=== PATIENT | male | born 1955 | race African-American/Black ===

== ENCOUNTER 2017-01-17 07:45 | Emergency (ER) | payer BC ==
[~2017-01-17] VITALS: Ht 180.3 cm; Wt 83.0 kg
[2017-01-17 07:47] VITALS: Ht 180.3 cm; Wt 83.0 kg
[2017-01-17] MEDS ORDERED: SENN-36 PO (08:12)
[2017-01-17] MEDS ORDERED: HYDR25SU23 PR (08:12)
[2017-01-17] MEDS ORDERED: DOCU-144 PO (08:12)
[2017-01-17] MEDS ORDERED: HYDR-902 PO (08:12)
[2017-01-17] MEDS ORDERED: ONDANSETRON (ODT) 4 MG TAB ODT STA (08:23)
[2017-01-17 08:30] VITALS: BP 139/89; PULSE 85; RESP 18; TEMP 98
[2017-01-17] MEDS ORDERED: HYDROCODONE/APAP (10/325) TAB PO ONE (08:30)
--- NOTE | 2017-01-17 11:10 | ERD ---
ER Documentation Chief Complaint Chief Complaint 6 days with hemrrhoid pain having having some bleeding HPI Patient is a 61-year-old male with no medical problems who presents with pain. He says that he has 6 days of "hemorrhoid pain". He said that he cannot sit or stand because he is having pain at his anus. He said that he has some bleeding when he goes to the bathroom and has been straining to have bowel movements. He has had previous resection of hemorrhoids years ago. He called his surgeon told him to go to the ER. He has tried preparation H as well as ointment and cream with lidocaine. Upon review of old medical records this is the patient's first visit to the emergency department. ROS All systems reviewed and are negative except as per history of present illness. Medications Home Meds Active Scripts Sennosides* (Senokot*) 8.6 Mg Tablet, 1 TAB PO BID, #30 TAB Prov:MADI BISHOP MD 01/17/17 Docusate Sodium* (Colace*) 100 Mg Capsule, 100 MG PO TID, #30 CAP Prov:MADI BISHOP MD 01/17/17 Hydrocortisone Acetate (Anusol-Hc) 25 Mg Supp.rect, 1 SUPP [place] BID Y for HEMORROID PAIN/ITCHING, #12 SUPP.RECT Prov:MADI BISHOP MD 01/17/17 Hydrocodone/Acetaminophen ([place] 10-325 Tablet) 1 Each Tablet, 1 TAB PO Q6H Y for PAIN, #12 TAB Prov:MADI BISHOP MD 01/17/17 Reported Medications [None] No Conflict Check 07/13/10 Allergies Allergies: Coded Allergies: No Known Drug Allergies (Verified Allergy, Unknown, 07/13/10) PMhx/Soc History of Surgery: No Anesthesia Reaction: No Hx Neurological Disorder: No Hx Respiratory Disorders: No Hx Cardiac Disorders: No Hx Psychiatric Problems: No Hx Miscellaneous Medical Probl: No Hx Alcohol Use: Yes (BEER A DAY) Hx Substance Use: No Hx Tobacco Use: No Smoking Status: Never smoker FmHx Family History: diabetes Physical Exam Vitals Vital Signs Date Time Temp Pulse Resp B/P Pulse Ox O2 Delivery O2 Flow Rate FiO2 01/17/17 08:30 98.0 85 18 139/89 99 01/17/17 07:47 97.7 98 18 157/105 98 Physical Exam Const: Moderate distress secondary to pain Head: Atraumatic Eyes: Normal Conjunctiva ENT: Normal External Ears, Nose and Mouth. Neck: Full range of motion..~ No meningismus. Resp: Clear to auscultation bilaterally Cardio: Regular rate and rhythm, no murmurs Abd: Soft, non tender, non distended. Normal bowel sounds Skin: No petechiae or rashes Back: No midline or flank tenderness Ext: No cyanosis, or edema Neur: Awake and alert Rectal: Small external hemorrhoids without thrombosis or signs of active bleeding Results 24 hrs Current Medications Medications (Trade) Dose Ordered Sig/Vamshi Route PRN Reason Start Time Stop Time Status Last Admin Dose Admin Acetaminophen/ Hydrocodone Bitart ([place] (10/325)) 1 tab ONCE ONCE PO 01/17/17 08:30 01/17/17 08:31 DC 01/17/17 08:26 Ondansetron HCl (Zofran Odt) 4 mg ONCE STAT ODT 01/17/17 08:23 01/17/17 08:24 DC 01/17/17 08:26 Procedures/MDM Patient is a 61-year-old male who presents with acute hemorrhoid pain. The patient has no active bleeding at this time and is otherwise well-appearing. Patient will be discharged with a prescription for [place], Anusol suppository, and Colace. I told the patient he should follow-up with his surgeon within 1-2 days to discuss hemorrhoidectomy. The patient can return for any worsening symptoms. I believe outpatient management is appropriate at this time. Departure Diagnosis: Primary Impression: Hemorrhoids Hemorrhoid type: unspecified Qualified Code: K64.9 - Hemorrhoids, unspecified hemorrhoid type Additional Impression: Rectal hemorrhage Condition: Fair Patient Instructions: Treating Hemorrhoids: Self-Care, Rectal Bleed, Stable Referrals: Your surgeon Additional Instructions: FOLLOW UP WITH YOUR PRIMARY CARE PHYSICIAN TOMORROW.Return to this facility if you are not improving as expected. MADI BISHOP MD Jan 17, 2017 11:10
== END 2017-01-17 08:35 | disposition home or self-care (01) ==
LOC: E/R 07:45
DX: K64.9 Unspecified hemorrhoids (principal)
CPT/HCPCS: 99283

== ENCOUNTER 2017-01-18 21:14 | Inpatient (IN) | payer BC ==
[~2017-01-18] VITALS: Ht 180.3 cm; Wt 83.3 kg
[~2017-01-18 21:14] MED LIST: DOCU-144 PO; HYDR-902 PO; HYDR25SU23 PR; SENN-36 PO
[2017-01-18] MEDS ORDERED: KETOROLAC 15 MG INJ IV STA (22:51)
[2017-01-18] MEDS ORDERED: SOD CHLORIDE 0.9% 1,000 ML IV STA (22:51)
[2017-01-18] MEDS ORDERED: MAGNESIUM CITRATE 300 ML BTL PO ONE (23:00)
--- NOTE | 2017-01-18 23:52 | ERD ---
ER Documentation Chief Complaint Chief Complaint chest pain x 4 days, sob [facility] Patient triage for chest pain for 4 days although upon my HPI patient states he is here due to continued rectal pain and constipation. He was seen and evaluated yesterday in this ED for rectal bleeding and hemorrhoidal pain, and was discharged with opioid analgesics, which he states he has been using without relief. He had a very small bowel movement today and states he feels extremely constipated and has continued worsening rectal pain with a few episodes of clear nonbloody nonbilious emesis. He has had no fevers or chills, denies chest pain or shortness of breath, no headache or blurry vision. ROS All systems reviewed and are negative except as per history of present illness. Medications Home Meds Active Scripts Sennosides* (Senokot*) 8.6 Mg Tablet, 1 TAB PO BID, #30 TAB Prov:MADI BISHOP MD 01/17/17 Docusate Sodium* (Colace*) 100 Mg Capsule, 100 MG PO TID, #30 CAP Prov:MADI BISHOP MD 01/17/17 Hydrocortisone Acetate (Anusol-Hc) 25 Mg Supp.rect, 1 SUPP [place] BID Y for HEMORROID PAIN/ITCHING, #12 SUPP.RECT Prov:MADI BISHOP MD 01/17/17 Hydrocodone/Acetaminophen ([place] 10-325 Tablet) 1 Each Tablet, 1 TAB PO Q6H Y for PAIN, #12 TAB Prov:MADI BISHOP MD 01/17/17 Reported Medications [None] No Conflict Check 07/13/10 Allergies Allergies: Coded Allergies: No Known Drug Allergies (Verified Allergy, Unknown, 07/13/10) PMhx/Soc Hypertension, recent right total hip arthroplasty History of Surgery: Yes (RT HIP REPLACEMENT, HEMORRHOIDECTOMY X2) Anesthesia Reaction: No Hx Neurological Disorder: No Hx Respiratory Disorders: No Hx Cardiac Disorders: No Hx Psychiatric Problems: No Hx Miscellaneous Medical Probl: Yes (HEMORRHOIDS) Hx Alcohol Use: Yes (BEER A DAY) Hx Substance Use: No Hx Tobacco Use: No Smoking Status: Former smoker FmHx Family History: No diabetes Physical Exam Vitals Vital Signs Date Time Temp Pulse Resp B/P Pulse Ox O2 Delivery O2 Flow Rate FiO2 01/18/17 23:54 98.2 71 18 116/82 98 Room Air 01/18/17 21:18 98.2 86 20 131/79 100 Physical Exam GENERAL: Well-developed, well-nourished, well-hydrated, moderate discomfort, afebrile HEENT: Moist mucous membranes, pink conjunctiva, no cervical spine tenderness or step-off deformities, no goiter, no jaundice or icterus, extraocular movements intact without pain. No submandibular induration, and no pharyngeal erythema NEURO: Alert and oriented 3, cranial nerves II through XII intact bilaterally, pupils equal round reactive to light, no focal deficits or facial asymmetry, sensation intact distally Strength 5/5 in upper and lower extremities bilaterally CARDIAC: Regular rate and rhythm, no murmurs rubs or gallops LUNGS: Clear bilaterally no wheezing crackles or stridor ABDOMEN: Soft nontender, no guarding, no rigidity, no rebound, no psoas sign no obturator sign. Normoactive bowel sounds SKIN: Warm and dry to touch, no abrasions, contusions, or hematomas, no lacerations, no ecchymosis, no target lesions, and without ulcers EXTREMITIES: No clubbing cyanosis or edema, calves are bilaterally symmetrical, no Homans sign, no popliteal cord sign. Distal pulses equal and bilateral PSYCH: Normal affect without agitation or irritability Result Diagram: 01/18/17229901/18/172299 Results 24 hrs Laboratory Tests Test 01/18/17 23:00 White Blood Count 18.010^3/ul Red Blood Count 5.4510^6/ul Hemoglobin 13.9g/dl Hematocrit 43.1% Mean Corpuscular Volume 79.1fl Mean Corpuscular Hemoglobin 25.5pg Mean Corpuscular Hemoglobin Concent 32.3g/dl Red Cell Distribution Width 15.2% Platelet Count 46521^3/UL Mean Platelet Volume 12.1fl Neutrophils % 83.2% Lymphocytes % 8.1% Monocytes % 8.0% Eosinophils % 0.1% Basophils % 0.2% Nucleated Red Blood Cells % 0.0/100WBC Neutrophils # 15.010^3/ul Lymphocytes # 1.510^3/ul Monocytes # 1.410^3/ul Eosinophils # 0.010^3/ul Basophils # 0.010^3/ul Nucleated Red Blood Cells # 0.010^3/ul Prothrombin Time 13.7Sec Prothrombin Time Ratio 1.1 INR International Normalized Ratio 1.05 Sodium Level 136mmol/L Potassium Level 4.2mmol/L Chloride Level 96mmol/L Carbon Dioxide Level 29mmol/L Anion Gap 15 Blood Urea Nitrogen 21mg/dl Creatinine 1.23mg/dl Glucose Level 123mg/dl Calcium Level 10.2mg/dl Total Bilirubin 1.0mg/dl Direct Bilirubin 0.00mg/dl Indirect Bilirubin 1.0mg/dl Aspartate Amino Transf (AST/SGOT) 23IU/L Alanine Aminotransferase (ALT/SGPT) 30IU/L Alkaline Phosphatase 65IU/L Troponin I 0.026ng/ml Total Protein 8.8g/dl Albumin 4.4g/dl Globulin 4.40g/dl Albumin/Globulin Ratio 1.00 Lipase 16U/L Current Medications Medications (Trade) Dose Ordered Sig/Vamshi Route PRN Reason Start Time Stop Time Status Last Admin Dose Admin Sodium Chloride (NS) 1,000 ml @ 1,000 mls/hr Q1H STAT IV 01/18/17 22:51 01/18/17 23:50 DC 01/18/17 23:14 Ketorolac Tromethamine (Toradol) 15 mg ONCE STAT IV 01/18/17 22:51 01/18/17 22:53 DC 01/18/17 23:14 Magnesium Citrate (Citroma) 300 ml ONCE ONCE PO 01/18/17 23:00 01/18/17 23:01 DC 01/18/17 23:14 Morphine Sulfate (morphine) 4 mg ONCE STAT IV 01/19/17 00:03 01/19/17 00:04 DC 01/19/17 00:12 Ondansetron HCl 4 mg 4 mg STK-MED ONCE .ROUTE 01/19/17 00:26 01/19/17 00:27 DC Piperacillin Sod/ Tazobactam Sod (Zosyn 3.375gm/ 100 ml (Pmx)) 100 ml @ 200 mls/hr ONCE ONCE IVPB 01/19/17 01:00 01/19/17 01:29 DC Ondansetron HCl (Zofran Inj) 4 mg ONCE ONCE IV 01/19/17 01:15 01/19/17 01:16 DC Ondansetron HCl (Zofran Inj) 4 mg ONCE STAT IV 01/19/17 01:14 01/19/17 01:15 DC 01/19/17 01:18 Procedures/MDM IV line was established patient was placed on monitor tech rhythm strip revealed a sinus rhythm at about 80 bpm with upright P and T waves. Patient was afebrile EKG performed, read by me: 85 bpm, normal sinus rhythm, normal axis, no acute ST segment changes, narrow QRS complex, with good R-wave progression in precordial leads. I administered 1 L normal saline intravenously, Toradol 15 mg IV, Zofran 4 mg IV. Continued pain and nausea administer morphine 4 mg IV and another dose of Zofran [address] scan of the abdomen and pelvis was performed revealing thickened rectum, no bowel obstruction, no other acute inflammatory infectious pathology noted. Please refer to radiologist dictation for full report. CBC revealed a leukocytosis at 18, electrolytes revealed dehydration with a BUN/ creatinine of 21/1.2, liver function tests normal, troponin negative. I spoke to surgeon traffic sign erection supervisor Dr. Ignacio regarding the patient's presentation, symptoms, CT scan findings, he kindly agreed to consult the patient. Departure Diagnosis: Primary Impression: Proctitis Additional Impressions: Rectal bleeding Intractable pain Hemorrhoid Hemorrhoid type: unspecified Qualified Code: K64.9 - Hemorrhoids, unspecified hemorrhoid type Constipation Constipation type: slow transit constipation Qualified Code: K59.01 - Slow transit constipation Dehydration Condition: EVETTE Mccormick MD Jan 18, 2017 23:52
--- NOTE | 2017-01-18 23:52 | ERD ---
ER Documentation Chief Complaint Chief Complaint chest pain x 4 days, sob [facility] Patient triage for chest pain for 4 days although upon my HPI patient states he is here due to continued rectal pain and constipation. He was seen and evaluated yesterday in this ED for rectal bleeding and hemorrhoidal pain, and was discharged with opioid analgesics, which he states he has been using without relief. He had a very small bowel movement today and states he feels extremely constipated and has continued worsening rectal pain with a few episodes of clear nonbloody nonbilious emesis. He has had no fevers or chills, denies chest pain or shortness of breath, no headache or blurry vision. ROS All systems reviewed and are negative except as per history of present illness. Medications Home Meds Active Scripts Sennosides* (Senokot*) 8.6 Mg Tablet, 1 TAB PO BID, #30 TAB Prov:MADI BISHOP MD 01/17/17 Docusate Sodium* (Colace*) 100 Mg Capsule, 100 MG PO TID, #30 CAP Prov:MADI BISHOP MD 01/17/17 Hydrocortisone Acetate (Anusol-Hc) 25 Mg Supp.rect, 1 SUPP [place] BID Y for HEMORROID PAIN/ITCHING, #12 SUPP.RECT Prov:MADI BISHOP MD 01/17/17 Hydrocodone/Acetaminophen ([place] 10-325 Tablet) 1 Each Tablet, 1 TAB PO Q6H Y for PAIN, #12 TAB Prov:MADI BISHOP MD 01/17/17 Reported Medications [None] No Conflict Check 07/13/10 Allergies Allergies: Coded Allergies: No Known Drug Allergies (Verified Allergy, Unknown, 07/13/10) PMhx/Soc Hypertension, recent right total hip arthroplasty History of Surgery: Yes (RT HIP REPLACEMENT, HEMORRHOIDECTOMY X2) Anesthesia Reaction: No Hx Neurological Disorder: No Hx Respiratory Disorders: No Hx Cardiac Disorders: No Hx Psychiatric Problems: No Hx Miscellaneous Medical Probl: Yes (HEMORRHOIDS) Hx Alcohol Use: Yes (BEER A DAY) Hx Substance Use: No Hx Tobacco Use: No Smoking Status: Former smoker FmHx Family History: No diabetes Physical Exam Vitals Vital Signs Date Time Temp Pulse Resp B/P Pulse Ox O2 Delivery O2 Flow Rate FiO2 01/18/17 23:54 98.2 71 18 116/82 98 Room Air 01/18/17 21:18 98.2 86 20 131/79 100 Physical Exam GENERAL: Well-developed, well-nourished, well-hydrated, moderate discomfort, afebrile HEENT: Moist mucous membranes, pink conjunctiva, no cervical spine tenderness or step-off deformities, no goiter, no jaundice or icterus, extraocular movements intact without pain. No submandibular induration, and no pharyngeal erythema NEURO: Alert and oriented 3, cranial nerves II through XII intact bilaterally, pupils equal round reactive to light, no focal deficits or facial asymmetry, sensation intact distally Strength 5/5 in upper and lower extremities bilaterally CARDIAC: Regular rate and rhythm, no murmurs rubs or gallops LUNGS: Clear bilaterally no wheezing crackles or stridor ABDOMEN: Soft nontender, no guarding, no rigidity, no rebound, no psoas sign no obturator sign. Normoactive bowel sounds SKIN: Warm and dry to touch, no abrasions, contusions, or hematomas, no lacerations, no ecchymosis, no target lesions, and without ulcers EXTREMITIES: No clubbing cyanosis or edema, calves are bilaterally symmetrical, no Homans sign, no popliteal cord sign. Distal pulses equal and bilateral PSYCH: Normal affect without agitation or irritability Result Diagram: 01/18/17229901/18/172299 Results 24 hrs Laboratory Tests Test 01/18/17 23:00 White Blood Count 18.010^3/ul Red Blood Count 5.4510^6/ul Hemoglobin 13.9g/dl Hematocrit 43.1% Mean Corpuscular Volume 79.1fl Mean Corpuscular Hemoglobin 25.5pg Mean Corpuscular Hemoglobin Concent 32.3g/dl Red Cell Distribution Width 15.2% Platelet Count 73403^3/UL Mean Platelet Volume 12.1fl Neutrophils % 83.2% Lymphocytes % 8.1% Monocytes % 8.0% Eosinophils % 0.1% Basophils % 0.2% Nucleated Red Blood Cells % 0.0/100WBC Neutrophils # 15.010^3/ul Lymphocytes # 1.510^3/ul Monocytes # 1.410^3/ul Eosinophils # 0.010^3/ul Basophils # 0.010^3/ul Nucleated Red Blood Cells # 0.010^3/ul Prothrombin Time 13.7Sec Prothrombin Time Ratio 1.1 INR International Normalized Ratio 1.05 Sodium Level 136mmol/L Potassium Level 4.2mmol/L Chloride Level 96mmol/L Carbon Dioxide Level 29mmol/L Anion Gap 15 Blood Urea Nitrogen 21mg/dl Creatinine 1.23mg/dl Glucose Level 123mg/dl Calcium Level 10.2mg/dl Total Bilirubin 1.0mg/dl Direct Bilirubin 0.00mg/dl Indirect Bilirubin 1.0mg/dl Aspartate Amino Transf (AST/SGOT) 23IU/L Alanine Aminotransferase (ALT/SGPT) 30IU/L Alkaline Phosphatase 65IU/L Troponin I 0.026ng/ml Total Protein 8.8g/dl Albumin 4.4g/dl Globulin 4.40g/dl Albumin/Globulin Ratio 1.00 Lipase 16U/L Current Medications Medications (Trade) Dose Ordered Sig/Vamshi Route PRN Reason Start Time Stop Time Status Last Admin Dose Admin Sodium Chloride (NS) 1,000 ml @ 1,000 mls/hr Q1H STAT IV 01/18/17 22:51 01/18/17 23:50 DC 01/18/17 23:14 Ketorolac Tromethamine (Toradol) 15 mg ONCE STAT IV 01/18/17 22:51 01/18/17 22:53 DC 01/18/17 23:14 Magnesium Citrate (Citroma) 300 ml ONCE ONCE PO 01/18/17 23:00 01/18/17 23:01 DC 01/18/17 23:14 Morphine Sulfate (morphine) 4 mg ONCE STAT IV 01/19/17 00:03 01/19/17 00:04 DC 01/19/17 00:12 Ondansetron HCl 4 mg 4 mg STK-MED ONCE .ROUTE 01/19/17 00:26 01/19/17 00:27 DC Piperacillin Sod/ Tazobactam Sod (Zosyn 3.375gm/ 100 ml (Pmx)) 100 ml @ 200 mls/hr ONCE ONCE IVPB 01/19/17 01:00 01/19/17 01:29 DC Ondansetron HCl (Zofran Inj) 4 mg ONCE ONCE IV 01/19/17 01:15 01/19/17 01:16 DC Ondansetron HCl (Zofran Inj) 4 mg ONCE STAT IV 01/19/17 01:14 01/19/17 01:15 DC 01/19/17 01:18 Procedures/MDM IV line was established patient was placed on cardiac surgeon rhythm strip revealed a sinus rhythm at about 80 bpm with upright P and T waves. Patient was afebrile EKG performed, read by me: 85 bpm, normal sinus rhythm, normal axis, no acute ST segment changes, narrow QRS complex, with good R-wave progression in precordial leads. I administered 1 L normal saline intravenously, Toradol 15 mg IV, Zofran 4 mg IV. Continued pain and nausea administer morphine 4 mg IV and another dose of Zofran [address] scan of the abdomen and pelvis was performed revealing thickened rectum, no bowel obstruction, no other acute inflammatory infectious pathology noted. Please refer to radiologist dictation for full report. CBC revealed a leukocytosis at 18, electrolytes revealed dehydration with a BUN/ creatinine of 21/1.2, liver function tests normal, troponin negative. I spoke to surgeon education reviewer Dr. Ignacio regarding the patient's presentation, symptoms, CT scan findings, he kindly agreed to consult the patient. Departure Diagnosis: Primary Impression: Proctitis Additional Impressions: Rectal bleeding Intractable pain Hemorrhoid Hemorrhoid type: unspecified Qualified Code: K64.9 - Hemorrhoids, unspecified hemorrhoid type Constipation Constipation type: slow transit constipation Qualified Code: K59.01 - Slow transit constipation Dehydration Condition: EVETTE Mccormick MD Jan 18, 2017 23:52
--- NOTE | 2017-01-18 23:52 | ERD ---
ER Documentation Chief Complaint Chief Complaint chest pain x 4 days, sob [facility] Patient triage for chest pain for 4 days although upon my HPI patient states he is here due to continued rectal pain and constipation. He was seen and evaluated yesterday in this ED for rectal bleeding and hemorrhoidal pain, and was discharged with opioid analgesics, which he states he has been using without relief. He had a very small bowel movement today and states he feels extremely constipated and has continued worsening rectal pain with a few episodes of clear nonbloody nonbilious emesis. He has had no fevers or chills, denies chest pain or shortness of breath, no headache or blurry vision. ROS All systems reviewed and are negative except as per history of present illness. Medications Home Meds Active Scripts Sennosides* (Senokot*) 8.6 Mg Tablet, 1 TAB PO BID, #30 TAB Prov:MADI BISHOP MD 01/17/17 Docusate Sodium* (Colace*) 100 Mg Capsule, 100 MG PO TID, #30 CAP Prov:MADI BISHOP MD 01/17/17 Hydrocortisone Acetate (Anusol-Hc) 25 Mg Supp.rect, 1 SUPP NE BID Y for HEMORROID PAIN/ITCHING, #12 SUPP.RECT Prov:MADI BISHOP MD 01/17/17 Hydrocodone/Acetaminophen ([place] 10-325 Tablet) 1 Each Tablet, 1 TAB PO Q6H Y for PAIN, #12 TAB Prov:MADI BISHOP MD 01/17/17 Reported Medications [None] No Conflict Check 07/13/10 Allergies Allergies: Coded Allergies: No Known Drug Allergies (Verified Allergy, Unknown, 07/13/10) PMhx/Soc Hypertension, recent right total hip arthroplasty History of Surgery: Yes (RT HIP REPLACEMENT, HEMORRHOIDECTOMY X2) Anesthesia Reaction: No Hx Neurological Disorder: No Hx Respiratory Disorders: No Hx Cardiac Disorders: No Hx Psychiatric Problems: No Hx Miscellaneous Medical Probl: Yes (HEMORRHOIDS) Hx Alcohol Use: Yes (BEER A DAY) Hx Substance Use: No Hx Tobacco Use: No Smoking Status: Former smoker FmHx Family History: No diabetes Physical Exam Vitals Vital Signs Date Time Temp Pulse Resp B/P Pulse Ox O2 Delivery O2 Flow Rate FiO2 01/18/17 23:54 98.2 71 18 116/82 98 Room Air 01/18/17 21:18 98.2 86 20 131/79 100 Physical Exam GENERAL: Well-developed, well-nourished, well-hydrated, moderate discomfort, afebrile HEENT: Moist mucous membranes, pink conjunctiva, no cervical spine tenderness or step-off deformities, no goiter, no jaundice or icterus, extraocular movements intact without pain. No submandibular induration, and no pharyngeal erythema NEURO: Alert and oriented 3, cranial nerves II through XII intact bilaterally, pupils equal round reactive to light, no focal deficits or facial asymmetry, sensation intact distally Strength 5/5 in upper and lower extremities bilaterally CARDIAC: Regular rate and rhythm, no murmurs rubs or gallops LUNGS: Clear bilaterally no wheezing crackles or stridor ABDOMEN: Soft nontender, no guarding, no rigidity, no rebound, no psoas sign no obturator sign. Normoactive bowel sounds SKIN: Warm and dry to touch, no abrasions, contusions, or hematomas, no lacerations, no ecchymosis, no target lesions, and without ulcers EXTREMITIES: No clubbing cyanosis or edema, calves are bilaterally symmetrical, no Homans sign, no popliteal cord sign. Distal pulses equal and bilateral PSYCH: Normal affect without agitation or irritability Result Diagram: 01/18/17229901/18/172299 Results 24 hrs Laboratory Tests Test 01/18/17 23:00 White Blood Count 18.010^3/ul Red Blood Count 5.4510^6/ul Hemoglobin 13.9g/dl Hematocrit 43.1% Mean Corpuscular Volume 79.1fl Mean Corpuscular Hemoglobin 25.5pg Mean Corpuscular Hemoglobin Concent 32.3g/dl Red Cell Distribution Width 15.2% Platelet Count 42006^3/UL Mean Platelet Volume 12.1fl Neutrophils % 83.2% Lymphocytes % 8.1% Monocytes % 8.0% Eosinophils % 0.1% Basophils % 0.2% Nucleated Red Blood Cells % 0.0/100WBC Neutrophils # 15.010^3/ul Lymphocytes # 1.510^3/ul Monocytes # 1.410^3/ul Eosinophils # 0.010^3/ul Basophils # 0.010^3/ul Nucleated Red Blood Cells # 0.010^3/ul Prothrombin Time 13.7Sec Prothrombin Time Ratio 1.1 INR International Normalized Ratio 1.05 Sodium Level 136mmol/L Potassium Level 4.2mmol/L Chloride Level 96mmol/L Carbon Dioxide Level 29mmol/L Anion Gap 15 Blood Urea Nitrogen 21mg/dl Creatinine 1.23mg/dl Glucose Level 123mg/dl Calcium Level 10.2mg/dl Total Bilirubin 1.0mg/dl Direct Bilirubin 0.00mg/dl Indirect Bilirubin 1.0mg/dl Aspartate Amino Transf (AST/SGOT) 23IU/L Alanine Aminotransferase (ALT/SGPT) 30IU/L Alkaline Phosphatase 65IU/L Troponin I 0.026ng/ml Total Protein 8.8g/dl Albumin 4.4g/dl Globulin 4.40g/dl Albumin/Globulin Ratio 1.00 Lipase 16U/L Current Medications Medications (Trade) Dose Ordered Sig/Vamshi Route PRN Reason Start Time Stop Time Status Last Admin Dose Admin Sodium Chloride (NS) 1,000 ml @ 1,000 mls/hr Q1H STAT IV 01/18/17 22:51 01/18/17 23:50 DC 01/18/17 23:14 Ketorolac Tromethamine (Toradol) 15 mg ONCE STAT IV 01/18/17 22:51 01/18/17 22:53 DC 01/18/17 23:14 Magnesium Citrate (Citroma) 300 ml ONCE ONCE PO 01/18/17 23:00 01/18/17 23:01 DC 01/18/17 23:14 Morphine Sulfate (morphine) 4 mg ONCE STAT IV 01/19/17 00:03 01/19/17 00:04 DC 01/19/17 00:12 Ondansetron HCl 4 mg 4 mg STK-MED ONCE .ROUTE 01/19/17 00:26 01/19/17 00:27 DC Piperacillin Sod/ Tazobactam Sod (Zosyn 3.375gm/ 100 ml (Pmx)) 100 ml @ 200 mls/hr ONCE ONCE IVPB 01/19/17 01:00 01/19/17 01:29 DC Ondansetron HCl (Zofran Inj) 4 mg ONCE ONCE IV 01/19/17 01:15 01/19/17 01:16 DC Ondansetron HCl (Zofran Inj) 4 mg ONCE STAT IV 01/19/17 01:14 01/19/17 01:15 DC 01/19/17 01:18 Procedures/MDM IV line was established patient was placed on desk monitor rhythm strip revealed a sinus rhythm at about 80 bpm with upright P and T waves. Patient was afebrile EKG performed, read by me: 85 bpm, normal sinus rhythm, normal axis, no acute ST segment changes, narrow QRS complex, with good R-wave progression in precordial leads. I administered 1 L normal saline intravenously, Toradol 15 mg IV, Zofran 4 mg IV. Continued pain and nausea administer morphine 4 mg IV and another dose of Zofran [address] scan of the abdomen and pelvis was performed revealing thickened rectum, no bowel obstruction, no other acute inflammatory infectious pathology noted. Please refer to radiologist dictation for full report. CBC revealed a leukocytosis at 18, electrolytes revealed dehydration with a BUN/ creatinine of 21/1.2, liver function tests normal, troponin negative. I spoke to surgeon customer service correspondence clerk Dr. Ignacio regarding the patient's presentation, symptoms, CT scan findings, he kindly agreed to consult the patient. Departure Diagnosis: Primary Impression: Proctitis Additional Impressions: Rectal bleeding Intractable pain Hemorrhoid Hemorrhoid type: unspecified Qualified Code: K64.9 - Hemorrhoids, unspecified hemorrhoid type Constipation Constipation type: slow transit constipation Qualified Code: K59.01 - Slow transit constipation Dehydration Condition: EVETTE Mccormick MD Jan 18, 2017 23:52
[2017-01-18 23:54] VITALS: TEMP 98.2
[2017-01-19] MEDS ORDERED: morphine 4 MG/ML VIAL IV STA (00:03)
[2017-01-19] MEDS ORDERED: ONDANSETRON 4 MG INJ ONE (00:26)
--- NOTE | 2017-01-19 00:31 | RADRPT ---
PROCEDURE: CT Abdomen and Pelvis without contrast. CLINICAL INDICATION: Abdominal pain, rectal bleed TECHNIQUE: CT scan of the abdomen and pelvis without contrast was performed on a multidetector hig h-resolution CT scanner. The patient was scanned without intravenous contrast. Coronal and sagittal reformatted images were obtained from the axial source images. Images were reviewed on a high-resol [employer] PACS workstation. The total exam CTDI equals 11.86 mGy and the total exam DLP equals 733.04 mG y-cm. One or more the following dose reduction techniques were utilized: Automated exposure control, adjus tment of the mA and / or kV according to patient's size, or use of iterative reconstruction techniqu e. COMPARISON: None. FINDINGS: Linear atelectasis/fibrosis at lung bases. No pneumoperitoneum is seen. Small oval fluid density str uctures in the liver likely cysts the largest 6 mm in the right lobe anterior segment. No imaging fo llow-up of these is recommended. No abnormality seen in the gallbladder, pancreas. No biliary dilata tion is seen. No abnormality seen in the spleen, adrenals. There is appearance of a small hiatal her yves. No abdominal aortic aneurysm is seen. Calcification in abdominal aorta and iliac arteries. Very small umbilical hernia containing fat only. No abnormality seen in the kidneys. Vas deferens calcif ication apparent. Phleboliths in the pelvis. Beam-hardening artifact arising from right hip arthropl asty projected over lower pelvis limiting evaluation. No definite abnormality of the prostate seen. There is appearance of mild diffuse bladder wall thickening which may at least partially be due to u nderdistension. There is appearance of nonspecific possible lower rectal wall thickening/mass. There is no evidence of acute appendicitis. There is the appearance of an unremarkable appendix part ially delineated. No dilated small bowel loops are seen. No enlarged lymph nodes are seen in the abd omen or pelvis. Mild to moderate osteoarthrosis at left hip. Small scattered likely bone islands. De generative changes at sacroiliac joints. Degenerative changes in thoracolumbar spine. IMPRESSION: Suggestion of possible lower rectal wall thickening / mass in this patient with history of rectal bl eeding. Small hiatal hernia. Please see above. RPTAT: HJES .Stephen Su MD, MD Date Time Electronically viewed and signed by .Stephen Su MD, MD on 01/19/2017 00:31 .S/
[2017-01-19] MEDS ORDERED: PIPER-TAZO 3.375 GM IV (PMX) 100 ML IVPB ONE (01:00)
[2017-01-19] MEDS ORDERED: ONDANSETRON 4 MG INJ IV STA (01:14)
[2017-01-19] MEDS ORDERED: ONDANSETRON 4 MG INJ IV ONE (01:15)
[2017-01-19] MEDS ORDERED: ANR PR (01:50)
[2017-01-19] MEDS ORDERED: HYDR-902 PO (01:50)
[2017-01-19] MEDS ORDERED: DOCU-159 PO (01:50)
[2017-01-19] MEDS ORDERED: ALBUTEROL/IPRATROPIUM (NEB) 3 ML AMP HHN PRN (03:00)
[2017-01-19] MEDS ORDERED: HYDROCORTISONE 25 MG SUPP PR PRN (03:00)
[2017-01-19] MEDS ORDERED: NACL 0.9% 3 ML SYG IV SCH (03:00)
[2017-01-19] MEDS ORDERED: ACETAMINOPHEN 325 MG TAB PO PRN (03:00)
[2017-01-19 03:29] VITALS: Ht 180.3 cm; Wt 83.3 kg
[2017-01-19 03:38] VITALS: BP 128/79; PULSE 69; RESP 18
[2017-01-19] MEDS: morphine 4 MG/ML VIAL IV PRN ×2 (04:33→09:14)
[2017-01-19] MEDS ORDERED: PIPER-TAZO 3.375 GM IV (PMX) 100 ML IVPB SCH ×2 (06:00→12:00)
[2017-01-19] MEDS ORDERED: DIPHENHYDRAMINE 50 MG INJ IV ONE (06:00)
[2017-01-19] MEDS ORDERED: METHYLPREDNISOLONE 125 MG INJ IV ONE (06:00)
--- NOTE | 2017-01-19 06:34 | HP ---
Date/Time of Note Date/Time of Note DATE: 01/19/17 TIME: 06:29 Assessment/Plan VTE Prophylaxis VTE Prophylaxis Intervention: SCD's Lines/Catheters IV Catheter Type (from Nrsg): Saline Lock Assessment/Plan Assessment/Plan 1. Chronic constipation, rectal pain and bleeding -Patient with history of hemorrhoid, which can explain the bleeding. CT abdomen /pelvis however showed Suggestion of possible lower rectal wall thickening/mass. -Will place a GI consult -Continue on his Anusol and pain management -IV antibiotic for possible proctitis -Follow-up culture results including stool culture HPI/ROS Admit Date/Time Admit Date/Time Jan 19, 2017 at 00:40 Hx of Present Illness This is a 61-year-old male with a history of chronic constipation and hemorrhoidal bleed who presented to the ER complaining of rectal pain and constipation. He was seen in ER yesterday for rectal bleed and constipation and was discharged with opioid analgesics without relief of pain. As such patient returned for further evaluation. In the ER, vitals were stable. Labs shows a WBC of 18,000. CT abdomen pelvis showed Suggestion of possible lower rectal wall thickening / mass in this patient with history of rectal bleeding. Small hiatal hernia. PMH/Family/Social Social History Smoking Status: Never smoker Exam/Review of Systems Vital Signs Vitals Vital Signs Date Time Temp Pulse Resp B/P Pulse Ox O2 Delivery O2 Flow Rate FiO2 01/19/17 03:38 98.6 69 18 128/79 100 Room Air Exam Constitutional: alert, oriented, well developed Head: atraumatic, normocephalic Eyes: EOMI, PERRL Respiratory: clear to auscultation, normal air movement Cardiovascular: nl pulses, regular rate and rhythm Gastrointestinal: soft, tender Extremities: normal pulses Labs Result Diagram: 01/19/17 0434 01/19/17 0434 Medications Medications Current Medications Ondansetron HCl (Zofran Inj) 4 mg Q6H PRN IV NAUSEA AND/OR VOMITING; Start at 03:00 Acetaminophen (Tylenol Tab) 650 mg Q6H PRN PO PAIN LEVEL 1-3 OR FEVER; Start 01/19/17 at 03:00 Morphine Sulfate (morphine) 4 mg Q4H PRN IV SEVERE PAIN LEVEL 7-10 Last administered on 01/19/17t 04:33; Admin Dose 4 MG; Start 01/19/17 at 03:00 Docusate Sodium (Colace) 100 mg TID PO ; Start 01/19/17 at 09:00 Acetaminophen/ Hydrocodone Bitart ([place] (10325)) 1 tab Q6H PRN PO PAIN; Start 01/19/17 at 03:00 Hydrocortisone (Anusol-Hc Supp) 25 mg BID PRN RI HEMORROID PAIN/ITCHING; Start 01/19/17 at 03:00 Simethicone (Mylicon) 160 mg Q6H PRN PO DISTENSION/GAS/BLOATING Last administered on 01/19/17t 05:39; Admin Dose 160 MG; Start 01/19/17 at 04:00 TABITHA BEAN MD Jan 19, 2017 06:34
[2017-01-19 08:15] VITALS: BP 123/57; RESP 18
[2017-01-19] MEDS: ONDANSETRON 4 MG INJ IV PRN ×2 (09:14→18:26)
[2017-01-19] MEDS: DOCUSATE SODIUM 100 MG CAP PO SCH ×3 (09:14→20:35)
--- NOTE | 2017-01-19 11:44 | PN ---
Date/Time of Note Date/Time of Note DATE: 01/19/17 TIME: 11:42 Assessment/Plan VTE Prophylaxis VTE Prophylaxis Intervention: SCD's Lines/Catheters IV Catheter Type (from Nrs): Saline Lock Assessment/Plan Chief Complaint/Hosp Course Assessment/Plan: 61-year-old male with: 1. Chronic constipation, rectal pain and bleeding-patient with history of hemorrhoid, which can explain the bleeding. CT abdomen/pelvis however showed Suggestion of possible lower rectal wall thickening/mass. Pain control, follow-up GI consult -Continue on his Anusol and pain management -IV antibiotic for possible proctitis, -Follow-up culture results including stool culture Problems: Subjective 24 Hr Interval Summary Free Text/Dictation Patient still having rectal pain. Awaiting to be seen by GI team. Exam/Review of Systems Vital Signs Vitals Vital Signs Date Time Temp Pulse Resp B/P Pulse Ox O2 Delivery O2 Flow Rate FiO2 01/19/17 08:15 98.0 64 18 123/57 97 01/19/17 03:38 Room Air Intake and Output 01/18/17 01/18/17 01/19/17 15:00 23:00 07:00 Intake Total 900 ml Output Total 750 ml Balance 150 ml Exam Constitutional: alert, oriented, well developed Head: atraumatic, normocephalic Eyes: EOMI, PERRL Respiratory: clear to auscultation, normal air movement Cardiovascular: nl pulses, regular rate and rhythm Gastrointestinal: soft, tender Extremities: normal pulses Results Result Diagram: 01/19/17 0434 01/19/17 0434 Results 24 hrs Laboratory Tests Test 01/18/17 23:00 01/19/17 04:34 White Blood Count 18.0 H 15.3 H Red Blood Count 5.45 5.06 Hemoglobin 13.9 L 12.7 L Hematocrit 43.1 39.6 L Mean Corpuscular Volume 79.1 L 78.3 L Mean Corpuscular Hemoglobin 25.5 L 25.1 L Mean Corpuscular Hemoglobin Concent 32.3 32.1 Red Cell Distribution Width 15.2 H 15.4 H Platelet Count 266 248 Mean Platelet Volume 12.1 H 12.2 H Neutrophils % 83.2 H 75.0 Lymphocytes % 8.1 L 16.2 Monocytes % 8.0 7.8 Eosinophils % 0.1 0.3 Basophils % 0.2 0.3 Nucleated Red Blood Cells % 0.0 0.0 Neutrophils # 15.0 H 11.5 H Lymphocytes # 1.5 2.5 Monocytes # 1.4 H 1.2 H Eosinophils # 0.0 0.1 Basophils # 0.0 0.0 Nucleated Red Blood Cells # 0.0 0.0 Prothrombin Time 13.7 Prothrombin Time Ratio 1.1 INR International Normalized Ratio 1.05 Sodium Level 136 139 Potassium Level 4.2 3.9 Chloride Level 96 L 100 Carbon Dioxide Level 29 31 Anion Gap 15 12 Blood Urea Nitrogen 21 H 20 Creatinine 1.23 1.18 Glucose Level 123 139 Calcium Level 10.2 9.3 Total Bilirubin 1.0 1.2 Direct Bilirubin 0.00 0.00 Indirect Bilirubin 1.0 1.2 H Aspartate Amino Transf (AST/SGOT) 23 19 Alanine Aminotransferase (ALT/SGPT) 30 29 Alkaline Phosphatase 65 54 Troponin I 0.026 Total Protein 8.8 H 7.4 # Albumin 4.4 3.7 Globulin 4.40 H 3.70 H Albumin/Globulin Ratio 1.00 1.00 Lipase 16 L Phosphorus Level 3.9 Magnesium Level 2.2 Medications Medications Current Medications Ondansetron HCl (Zofran Inj) 4 mg Q6H PRN IV NAUSEA AND/OR VOMITING Last administered on 01/19/17 09:14; Admin Dose 4 MG; Start 01/19/17 at 03:00 Acetaminophen (Tylenol Tab) 650 mg Q6H PRN PO PAIN LEVEL 1-3 OR FEVER; Start 01/19/17 at 03:00 Docusate Sodium (Colace) 100 mg TID PO Last administered on 01/19/17 09:14; Admin Dose 100 MG; Start 01/19/17 at 09:00 Acetaminophen/ Hydrocodone Bitart ([place] (10/325)) 1 tab Q6H PRN PO PAIN; Start 01/19/17 at 03:00 Hydrocortisone (Anusol-Hc Supp) 25 mg BID PRN [place] HEMORROID PAIN/ITCHING; Start 01/19/17 at 03:00 Simethicone (Mylicon) 160 mg Q6H PRN PO DISTENSION/GAS/BLOATING Last administered on 01/19/17 05:39; Admin Dose 160 MG; Start 01/19/17 at 04:00 Morphine Sulfate 2 mg 2 mg Q4H PRN IV SEVERE PAIN LEVEL 7-10; Start 01/19/17 at 15:00 Aztreonam/Sodium Chloride (Azactam/NS) 100 ml @ 100 mls/hr Q12 IVPB ; Start at 12:00; Status SHELDON HERNANDEZ Jan 19, 2017 11:44
[2017-01-19] MEDS: AZTREONAM 2 GM in SOD CHLORIDE 0.9% 100 ML IVPB SCH ×2 (14:07→20:35)
[2017-01-19 14:31] VITALS: BP 137/87; RESP 18
--- NOTE | 2017-01-19 15:22 | CONS ---
Date/Time of Note Date/Time of Note DATE: 01/19/17 TIME: 15:10 Assessment/Plan Assessment/Plan Chief Complaint/Hosp Course ID BRIEF INITIAL NOTE=> Full consult note to follow by Dr. Lopez. I presented to bedside to introduce myself and Dr. Lopez ID medical consultant team and to inquire on his status. 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 Also stationed in past at [facility], [facility], and [employer]. He has a past medical hx of hemorrhoids in addition to chronic constipation w/ straining at the stool, plus anal fissures. He is s/p L-THR SEPTEMBER 2016, no complaints. He reports subjective fevers w/diaphoresis x several days, with increased rectal pain. He is , spouse at bedside. ALLERGIES: Iodine injected contrast = acute anaphylaxis PCN => Hx of PCN allergy, he forgot about this. This am he had acute angioedema reaction to Zosyn. INITIAL ASSESSMENT 1. SIRS w/subjective fevers, leukocytosis 2. Acute Proctitis per CT * CT abdomen pelvis showed Suggestion of possible lower rectal wall thickening / mass 3. Hx of hemorrhoids + chronic constipation w/straining at stool causing anal fissures and local bleeding . * Hx of hemorrhoidectomy remote 4. Small hiatal hernia 5. s/p L-THR September 2016 PLAN 1. PCN + Iodine contrast to allergy profile 2. Azactam started by primary for GNR coverage 3. Will add Cipro + Flagyl IV 4. GI consult pending -> patient anticipating colononoscopy. * Thank you for referring this very pleasant [employer] [place] Further recommendations per consult note dictation, pending. Problems: Consultation Date/Type/Reason Admit Date/Time Jan 19, 2017 at 00:40 Initial Consult Date Exam/Review of Systems Vital Signs Vitals Vital Signs Date Time Temp Pulse Resp B/P Pulse Ox O2 Delivery O2 Flow Rate FiO2 01/19/17 14:31 98.0 86 18 137/87 96 01/19/17 03:38 Room Air Intake and Output 01/18/17 01/18/17 01/19/17 15:00 23:00 07:00 Intake Total 900 ml Output Total 750 ml Balance 150 ml Results Result Diagram: 01/19/17 0434 01/19/17 0434 Results 24 hrs Laboratory Tests Test 01/18/17 23:00 01/19/17 04:34 White Blood Count 18.0 H 15.3 H Red Blood Count 5.45 5.06 Hemoglobin 13.9 L 12.7 L Hematocrit 43.1 39.6 L Mean Corpuscular Volume 79.1 L 78.3 L Mean Corpuscular Hemoglobin 25.5 L 25.1 L Mean Corpuscular Hemoglobin Concent 32.3 32.1 Red Cell Distribution Width 15.2 H 15.4 H Platelet Count 266 248 Mean Platelet Volume 12.1 H 12.2 H Neutrophils % 83.2 H 75.0 Lymphocytes % 8.1 L 16.2 Monocytes % 8.0 7.8 Eosinophils % 0.1 0.3 Basophils % 0.2 0.3 Nucleated Red Blood Cells % 0.0 0.0 Neutrophils # 15.0 H 11.5 H Lymphocytes # 1.5 2.5 Monocytes # 1.4 H 1.2 H Eosinophils # 0.0 0.1 Basophils # 0.0 0.0 Nucleated Red Blood Cells # 0.0 0.0 Prothrombin Time 13.7 Prothrombin Time Ratio 1.1 INR International Normalized Ratio 1.05 Sodium Level 136 139 Potassium Level 4.2 3.9 Chloride Level 96 L 100 Carbon Dioxide Level 29 31 Anion Gap 15 12 Blood Urea Nitrogen 21 H 20 Creatinine 1.23 1.18 Glucose Level 123 139 Calcium Level 10.2 9.3 Total Bilirubin 1.0 1.2 Direct Bilirubin 0.00 0.00 Indirect Bilirubin 1.0 1.2 H Aspartate Amino Transf (AST/SGOT) 23 19 Alanine Aminotransferase (ALT/SGPT) 30 29 Alkaline Phosphatase 65 54 Troponin I 0.026 Total Protein 8.8 H 7.4 # Albumin 4.4 3.7 Globulin 4.40 H 3.70 H Albumin/Globulin Ratio 1.00 1.00 Lipase 16 L Phosphorus Level 3.9 Magnesium Level 2.2 Medications Medications Current Medications Ondansetron HCl (Zofran Inj) 4 mg Q6H PRN IV NAUSEA AND/OR VOMITING Last administered on 01/19/17t 09:14; Admin Dose 4 MG; Start 01/19/17 at 03:00 Acetaminophen (Tylenol Tab) 650 mg Q6H PRN PO PAIN LEVEL 1-3 OR FEVER; Start 01/19/17 at 03:00 Docusate Sodium (Colace) 100 mg TID PO Last administered on 01/19/17 14:06; Admin Dose 100 MG; Start 01/19/17 at 09:00 Acetaminophen/ Hydrocodone Bitart ([place] (10/325)) 1 tab Q6H PRN PO PAIN; Start 01/19/17 at 03:00 Hydrocortisone (Anusol-Hc Supp) 25 mg BID PRN [place] HEMORROID PAIN/ITCHING; Start 01/19/17 at 03:00 Simethicone (Mylicon) 160 mg Q6H PRN PO DISTENSION/GAS/BLOATING Last administered on 01/19/17 05:39; Admin Dose 160 MG; Start 01/19/17 at 04:00 Morphine Sulfate 2 mg 2 mg Q4H PRN IV SEVERE PAIN LEVEL 7-10; Start 01/19/17 at 15:00 Aztreonam/Sodium Chloride (Azactam/NS) 100 ml @ 100 mls/hr Q12 IVPB Last administered on 01/19/17 14:07; Admin Dose 100 MLS/HR; Start 01/19/17 at 13: 00 Hydromorphone HCl (Dilaudid) 1 mg Q4H PRN IV PAIN LEVEL 8-10; Start 01/19/17 at 12:00 PUNEET JEONG NP Jan 19, 2017 15:22
--- NOTE | 2017-01-19 15:22 | CONS ---
Date/Time of Note Date/Time of Note DATE: 01/19/17 TIME: 15:10 Assessment/Plan Assessment/Plan Chief Complaint/Hosp Course ID BRIEF INITIAL NOTE=> Full consult note to follow by Dr. Lopez. I presented to bedside to introduce myself and Dr. Lopez ID cleaning validation consultant team and to inquire on his status. 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 Also stationed in past at [facility], [facility], and [place]. He has a past medical hx of hemorrhoids in addition to chronic constipation w/ straining at the stool, plus anal fissures. He is s/p L-THR SEPTEMBER 2016, no complaints. He reports subjective fevers w/diaphoresis x several days, with increased rectal pain. He is , spouse at bedside. ALLERGIES: Iodine injected contrast = acute anaphylaxis PCN => Hx of PCN allergy, he forgot about this. This am he had acute angioedema reaction to Zosyn. INITIAL ASSESSMENT 1. SIRS w/subjective fevers, leukocytosis 2. Acute Proctitis per CT * CT abdomen pelvis showed Suggestion of possible lower rectal wall thickening / mass 3. Hx of hemorrhoids + chronic constipation w/straining at stool causing anal fissures and local bleeding . * Hx of hemorrhoidectomy remote 4. Small hiatal hernia 5. s/p L-THR September 2016 PLAN 1. PCN + Iodine contrast to allergy profile 2. Azactam started by primary for GNR coverage 3. Will add Cipro + Flagyl IV 4. GI consult pending -> patient anticipating colononoscopy. * Thank you for referring this very pleasant [employer] [place] Further recommendations per consult note dictation, pending. Problems: Consultation Date/Type/Reason Admit Date/Time Jan 19, 2017 at 00:40 Initial Consult Date Exam/Review of Systems Vital Signs Vitals Vital Signs Date Time Temp Pulse Resp B/P Pulse Ox O2 Delivery O2 Flow Rate FiO2 01/19/17 14:31 98.0 86 18 137/87 96 01/19/17 03:38 Room Air Intake and Output 01/18/17 01/18/17 01/19/17 15:00 23:00 07:00 Intake Total 900 ml Output Total 750 ml Balance 150 ml Results Result Diagram: 01/19/17 0434 01/19/17 0434 Results 24 hrs Laboratory Tests Test 01/18/17 23:00 01/19/17 04:34 White Blood Count 18.0 H 15.3 H Red Blood Count 5.45 5.06 Hemoglobin 13.9 L 12.7 L Hematocrit 43.1 39.6 L Mean Corpuscular Volume 79.1 L 78.3 L Mean Corpuscular Hemoglobin 25.5 L 25.1 L Mean Corpuscular Hemoglobin Concent 32.3 32.1 Red Cell Distribution Width 15.2 H 15.4 H Platelet Count 266 248 Mean Platelet Volume 12.1 H 12.2 H Neutrophils % 83.2 H 75.0 Lymphocytes % 8.1 L 16.2 Monocytes % 8.0 7.8 Eosinophils % 0.1 0.3 Basophils % 0.2 0.3 Nucleated Red Blood Cells % 0.0 0.0 Neutrophils # 15.0 H 11.5 H Lymphocytes # 1.5 2.5 Monocytes # 1.4 H 1.2 H Eosinophils # 0.0 0.1 Basophils # 0.0 0.0 Nucleated Red Blood Cells # 0.0 0.0 Prothrombin Time 13.7 Prothrombin Time Ratio 1.1 INR International Normalized Ratio 1.05 Sodium Level 136 139 Potassium Level 4.2 3.9 Chloride Level 96 L 100 Carbon Dioxide Level 29 31 Anion Gap 15 12 Blood Urea Nitrogen 21 H 20 Creatinine 1.23 1.18 Glucose Level 123 139 Calcium Level 10.2 9.3 Total Bilirubin 1.0 1.2 Direct Bilirubin 0.00 0.00 Indirect Bilirubin 1.0 1.2 H Aspartate Amino Transf (AST/SGOT) 23 19 Alanine Aminotransferase (ALT/SGPT) 30 29 Alkaline Phosphatase 65 54 Troponin I 0.026 Total Protein 8.8 H 7.4 # Albumin 4.4 3.7 Globulin 4.40 H 3.70 H Albumin/Globulin Ratio 1.00 1.00 Lipase 16 L Phosphorus Level 3.9 Magnesium Level 2.2 Medications Medications Current Medications Ondansetron HCl (Zofran Inj) 4 mg Q6H PRN IV NAUSEA AND/OR VOMITING Last administered on 01/19/17t 09:14; Admin Dose 4 MG; Start 01/19/17 at 03:00 Acetaminophen (Tylenol Tab) 650 mg Q6H PRN PO PAIN LEVEL 1-3 OR FEVER; Start 01/19/17 at 03:00 Docusate Sodium (Colace) 100 mg TID PO Last administered on 01/19/17 14:06; Admin Dose 100 MG; Start 01/19/17 at 09:00 Acetaminophen/ Hydrocodone Bitart ([place] (10/325)) 1 tab Q6H PRN PO PAIN; Start 01/19/17 at 03:00 Hydrocortisone (Anusol-Hc Supp) 25 mg BID PRN [place] HEMORROID PAIN/ITCHING; Start 01/19/17 at 03:00 Simethicone (Mylicon) 160 mg Q6H PRN PO DISTENSION/GAS/BLOATING Last administered on 01/19/17 05:39; Admin Dose 160 MG; Start 01/19/17 at 04:00 Morphine Sulfate 2 mg 2 mg Q4H PRN IV SEVERE PAIN LEVEL 7-10; Start 01/19/17 at 15:00 Aztreonam/Sodium Chloride (Azactam/NS) 100 ml @ 100 mls/hr Q12 IVPB Last administered on 01/19/17 14:07; Admin Dose 100 MLS/HR; Start 01/19/17 at 13: 00 Hydromorphone HCl (Dilaudid) 1 mg Q4H PRN IV PAIN LEVEL 8-10; Start 01/19/17 at 12:00 PUNEET JEONG NP Jan 19, 2017 15:22
--- NOTE | 2017-01-19 15:22 | CONS ---
Date/Time of Note Date/Time of Note DATE: 01/19/17 TIME: 15:10 Assessment/Plan Assessment/Plan Chief Complaint/Hosp Course ID BRIEF INITIAL NOTE=> Full consult note to follow by Dr. Lopez. I presented to bedside to introduce myself and Dr. Lopez ID reporting process consultant team and to inquire on his status. 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 Also stationed in past at [facility], [facility], and [place]. He has a past medical hx of hemorrhoids in addition to chronic constipation w/ straining at the stool, plus anal fissures. He is s/p L-THR SEPTEMBER 2016, no complaints. He reports subjective fevers w/diaphoresis x several days, with increased rectal pain. He is , spouse at bedside. ALLERGIES: Iodine injected contrast = acute anaphylaxis PCN => Hx of PCN allergy, he forgot about this. This am he had acute angioedema reaction to Zosyn. INITIAL ASSESSMENT 1. SIRS w/subjective fevers, leukocytosis 2. Acute Proctitis per CT * CT abdomen pelvis showed Suggestion of possible lower rectal wall thickening / mass 3. Hx of hemorrhoids + chronic constipation w/straining at stool causing anal fissures and local bleeding . * Hx of hemorrhoidectomy remote 4. Small hiatal hernia 5. s/p L-THR September 2016 PLAN 1. PCN + Iodine contrast to allergy profile 2. Azactam started by primary for GNR coverage 3. Will add Cipro + Flagyl IV 4. GI consult pending -> patient anticipating colononoscopy. * Thank you for referring this very pleasant [employer] Further recommendations per consult note dictation, pending. Problems: Consultation Date/Type/Reason Admit Date/Time Jan 19, 2017 at 00:40 Initial Consult Date Exam/Review of Systems Vital Signs Vitals Vital Signs Date Time Temp Pulse Resp B/P Pulse Ox O2 Delivery O2 Flow Rate FiO2 01/19/17 14:31 98.0 86 18 137/87 96 01/19/17 03:38 Room Air Intake and Output 01/18/17 01/18/17 01/19/17 15:00 23:00 07:00 Intake Total 900 ml Output Total 750 ml Balance 150 ml Results Result Diagram: 01/19/17 0434 01/19/17 0434 Results 24 hrs Laboratory Tests Test 01/18/17 23:00 01/19/17 04:34 White Blood Count 18.0 H 15.3 H Red Blood Count 5.45 5.06 Hemoglobin 13.9 L 12.7 L Hematocrit 43.1 39.6 L Mean Corpuscular Volume 79.1 L 78.3 L Mean Corpuscular Hemoglobin 25.5 L 25.1 L Mean Corpuscular Hemoglobin Concent 32.3 32.1 Red Cell Distribution Width 15.2 H 15.4 H Platelet Count 266 248 Mean Platelet Volume 12.1 H 12.2 H Neutrophils % 83.2 H 75.0 Lymphocytes % 8.1 L 16.2 Monocytes % 8.0 7.8 Eosinophils % 0.1 0.3 Basophils % 0.2 0.3 Nucleated Red Blood Cells % 0.0 0.0 Neutrophils # 15.0 H 11.5 H Lymphocytes # 1.5 2.5 Monocytes # 1.4 H 1.2 H Eosinophils # 0.0 0.1 Basophils # 0.0 0.0 Nucleated Red Blood Cells # 0.0 0.0 Prothrombin Time 13.7 Prothrombin Time Ratio 1.1 INR International Normalized Ratio 1.05 Sodium Level 136 139 Potassium Level 4.2 3.9 Chloride Level 96 L 100 Carbon Dioxide Level 29 31 Anion Gap 15 12 Blood Urea Nitrogen 21 H 20 Creatinine 1.23 1.18 Glucose Level 123 139 Calcium Level 10.2 9.3 Total Bilirubin 1.0 1.2 Direct Bilirubin 0.00 0.00 Indirect Bilirubin 1.0 1.2 H Aspartate Amino Transf (AST/SGOT) 23 19 Alanine Aminotransferase (ALT/SGPT) 30 29 Alkaline Phosphatase 65 54 Troponin I 0.026 Total Protein 8.8 H 7.4 # Albumin 4.4 3.7 Globulin 4.40 H 3.70 H Albumin/Globulin Ratio 1.00 1.00 Lipase 16 L Phosphorus Level 3.9 Magnesium Level 2.2 Medications Medications Current Medications Ondansetron HCl (Zofran Inj) 4 mg Q6H PRN IV NAUSEA AND/OR VOMITING Last administered on 01/19/17t 09:14; Admin Dose 4 MG; Start 01/19/17 at 03:00 Acetaminophen (Tylenol Tab) 650 mg Q6H PRN PO PAIN LEVEL 1-3 OR FEVER; Start 01/19/17 at 03:00 Docusate Sodium (Colace) 100 mg TID PO Last administered on 01/19/17 14:06; Admin Dose 100 MG; Start 01/19/17 at 09:00 Acetaminophen/ Hydrocodone Bitart ([place] (10/325)) 1 tab Q6H PRN PO PAIN; Start 01/19/17 at 03:00 Hydrocortisone (Anusol-Hc Supp) 25 mg BID PRN [place] HEMORROID PAIN/ITCHING; Start 01/19/17 at 03:00 Simethicone (Mylicon) 160 mg Q6H PRN PO DISTENSION/GAS/BLOATING Last administered on 01/19/17 05:39; Admin Dose 160 MG; Start 01/19/17 at 04:00 Morphine Sulfate 2 mg 2 mg Q4H PRN IV SEVERE PAIN LEVEL 7-10; Start 01/19/17 at 15:00 Aztreonam/Sodium Chloride (Azactam/NS) 100 ml @ 100 mls/hr Q12 IVPB Last administered on 01/19/17 14:07; Admin Dose 100 MLS/HR; Start 01/19/17 at 13: 00 Hydromorphone HCl (Dilaudid) 1 mg Q4H PRN IV PAIN LEVEL 8-10; Start 01/19/17 at 12:00 PUNEET JEONG NP Jan 19, 2017 15:22
[2017-01-19] MEDS ORDERED: metroNIDAZOLE 500 MG/NS (PMX) 250 MG in EVAC CONTAINER 1 BOTTLE IVPB SCH (16:00)
[2017-01-19] MEDS: HYDROmorphONE 0.5 MG/0.5 ML SYG IV PRN ×2 (18:25→22:21)
[2017-01-19 19:46] VITALS: BP 132/79; RESP 18
[2017-01-19] MEDS: metroNIDAZOLE 500 MG/NS (PMX) 250 MG in EVAC CONTAINER 1 BOTTLE IVPB SCH ×2 (20:00→22:10)
[2017-01-19] MEDS: CIPROFLOXACIN 400MG/D5W 200 ML IVPB SCH (20:35)
[2017-01-19] MEDS: HYDROCODONE/APAP (10/325) TAB PO PRN (20:57)
[2017-01-20] VITALS (16 sets, daily range): BP systolic 125–157; BP diastolic 65–93; PULSE 52–59; RESP 11–30
[2017-01-20] MEDS: morphine 2 MG INJ IV PRN ×4 (01:54→18:50)
--- NOTE | 2017-01-20 02:39 | CONS ---
DATE OF ADMISSION: 01/19/2017 DATE OF CONSULTATION: 01/19/2017 TYPE OF CONSULTATION: Infectious Disease. REASON FOR CONSULTATION: Antibiotic management. HISTORY OF PRESENT ILLNESS: Frank Ly is a 61-year-old male with numerous problems who comes in with constipation and leukocytosis and is being seen for antibiotic management. Past problems include: 1. History of constipation and hemorrhoidal bleed. 2. Status post hemorrhoidectomy. The patient was seen yesterday for rectal pain and constipation and was discharged with opioid analg esics without relief of pain. He returned for evaluation. In the ER, his vital signs were stable. His white count was 18,000. A CT scan of the abdomen and pelvis showed suggestions of possible low er rectal wall thickening/mass in this patient with history of rectal bleeding. Today, his white co unt is 16.3, H and H of 12.7 and 39.6, platelet count 248,000. BUN and creatinine 20/1.18, random g lucose of 139. As noted, he has a history of hemorrhoids, chronic constipation with straining at [facility], causing anal fissures and local bleeding. He has a history of hemorrhoidectomy in the remote p [facility] and a small hiatal hernia. FAMILY HISTORY: Noncontributory. SOCIAL HISTORY: He does not smoke, drink or abuse drugs. ALLERGIES: IODINE, INJECTED CONTRAST, WHICH CAUSES ANAPHYLAXIS, AND TO PENICILLIN. MEDICATIONS: Per chart. REVIEW OF SYSTEMS: As per HPI. PHYSICAL EXAMINATION: GENERAL: The patient is a well-developed, well-nourished male who is alert, responsive, in no acute distress. VITAL SIGNS: Stable. He is afebrile. SKIN: Without generalized rash. HEENT: Within normal limits. NECK: Supple. LYMPH NODES: None palpable. CHEST: Decreased breath sounds at the bases. HEART: Without murmur or gallop. ABDOMEN: Soft, nontender, without organosplenomegaly or masses. EXTREMITIES: Without cyanosis, clubbing, or edema. RECTAL AND GENITAL: Deferred to GI. NEUROLOGIC: No focal neurological abnormalities. IMPRESSION AND PLAN: The patient may have proctitis. He has a history of hemorrhoidectomy x2. In fact, he also has a history of a right hip replacement which was not mentioned previously. He was p laced on Cipro and Flagyl and he was on IV Azactam. Infectious disease started him on Cipro and Fla gyl and we will await the GI consultation. We may want to check his stool for C. difficile as well. I will dictate my findings to the hospitalist. Dictated By: SAULO REGAN MD, JD/OLIVER Conf#: [id number] DID#: [id number]
--- NOTE | 2017-01-20 02:39 | CONS ---
DATE OF ADMISSION: 01/19/2017 DATE OF CONSULTATION: 01/19/2017 TYPE OF CONSULTATION: Infectious Disease. REASON FOR CONSULTATION: Antibiotic management. HISTORY OF PRESENT ILLNESS: Frank Ly is a 61-year-old male with numerous problems who comes in with constipation and leukocytosis and is being seen for antibiotic management. Past problems include: 1. History of constipation and hemorrhoidal bleed. 2. Status post hemorrhoidectomy. The patient was seen yesterday for rectal pain and constipation and was discharged with opioid analg esics without relief of pain. He returned for evaluation. In the ER, his vital signs were stable. His white count was 18,000. A CT scan of the abdomen and pelvis showed suggestions of possible low er rectal wall thickening/mass in this patient with history of rectal bleeding. Today, his white co unt is 16.3, H and H of 12.7 and 39.6, platelet count 248,000. BUN and creatinine 20/1.18, random g lucose of 139. As noted, he has a history of hemorrhoids, chronic constipation with straining at [facility], causing anal fissures and local bleeding. He has a history of hemorrhoidectomy in the remote p [facility] and a small hiatal hernia. FAMILY HISTORY: Noncontributory. SOCIAL HISTORY: He does not smoke, drink or abuse drugs. ALLERGIES: IODINE, INJECTED CONTRAST, WHICH CAUSES ANAPHYLAXIS, AND TO PENICILLIN. MEDICATIONS: Per chart. REVIEW OF SYSTEMS: As per HPI. PHYSICAL EXAMINATION: GENERAL: The patient is a well-developed, well-nourished male who is alert, responsive, in no acute distress. VITAL SIGNS: Stable. He is afebrile. SKIN: Without generalized rash. HEENT: Within normal limits. NECK: Supple. LYMPH NODES: None palpable. CHEST: Decreased breath sounds at the bases. HEART: Without murmur or gallop. ABDOMEN: Soft, nontender, without organosplenomegaly or masses. EXTREMITIES: Without cyanosis, clubbing, or edema. RECTAL AND GENITAL: Deferred to GI. NEUROLOGIC: No focal neurological abnormalities. IMPRESSION AND PLAN: The patient may have proctitis. He has a history of hemorrhoidectomy x2. In fact, he also has a history of a right hip replacement which was not mentioned previously. He was p laced on Cipro and Flagyl and he was on IV Azactam. Infectious disease started him on Cipro and Fla gyl and we will await the GI consultation. We may want to check his stool for C. difficile as well. I will dictate my findings to the hospitalist. Dictated By: SAULO REGAN MD, JD/OLIVER Conf#: [id number] DID#: [id number]
--- NOTE | 2017-01-20 02:39 | CONS ---
DATE OF ADMISSION: 01/19/2017 DATE OF CONSULTATION: 01/19/2017 TYPE OF CONSULTATION: Infectious Disease. REASON FOR CONSULTATION: Antibiotic management. HISTORY OF PRESENT ILLNESS: Frank Ly is a 61-year-old male with numerous problems who comes in with constipation and leukocytosis and is being seen for antibiotic management. Past problems include: 1. History of constipation and hemorrhoidal bleed. 2. Status post hemorrhoidectomy. The patient was seen yesterday for rectal pain and constipation and was discharged with opioid analg esics without relief of pain. He returned for evaluation. In the ER, his vital signs were stable. His white count was 18,000. A CT scan of the abdomen and pelvis showed suggestions of possible low er rectal wall thickening/mass in this patient with history of rectal bleeding. Today, his white co unt is 16.3, H and H of 12.7 and 39.6, platelet count 248,000. BUN and creatinine 20/1.18, random g lucose of 139. As noted, he has a history of hemorrhoids, chronic constipation with straining at [facility], causing anal fissures and local bleeding. He has a history of hemorrhoidectomy in the remote p [facility] and a small hiatal hernia. FAMILY HISTORY: Noncontributory. SOCIAL HISTORY: He does not smoke, drink or abuse drugs. ALLERGIES: IODINE, INJECTED CONTRAST, WHICH CAUSES ANAPHYLAXIS, AND TO PENICILLIN. MEDICATIONS: Per chart. REVIEW OF SYSTEMS: As per HPI. PHYSICAL EXAMINATION: GENERAL: The patient is a well-developed, well-nourished male who is alert, responsive, in no acute distress. VITAL SIGNS: Stable. He is afebrile. SKIN: Without generalized rash. HEENT: Within normal limits. NECK: Supple. LYMPH NODES: None palpable. CHEST: Decreased breath sounds at the bases. HEART: Without murmur or gallop. ABDOMEN: Soft, nontender, without organosplenomegaly or masses. EXTREMITIES: Without cyanosis, clubbing, or edema. RECTAL AND GENITAL: Deferred to GI. NEUROLOGIC: No focal neurological abnormalities. IMPRESSION AND PLAN: The patient may have proctitis. He has a history of hemorrhoidectomy x2. In fact, he also has a history of a right hip replacement which was not mentioned previously. He was p laced on Cipro and Flagyl and he was on IV Azactam. Infectious disease started him on Cipro and Fla gyl and we will await the GI consultation. We may want to check his stool for C. difficile as well. I will dictate my findings to the hospitalist. Dictated By: SAULO REGAN MD, JD/OLIVER Conf#: [id number] DID#: [id number]
[2017-01-20] MEDS: HYDROmorphONE 0.5 MG/0.5 ML SYG IV PRN ×2 (04:40→09:07)
[2017-01-20] MEDS: metroNIDAZOLE 500 MG/NS (PMX) 250 MG in EVAC CONTAINER 1 BOTTLE IVPB SCH ×2 (05:41→13:28)
[2017-01-20] MEDS: CIPROFLOXACIN 400MG/D5W 200 ML IVPB SCH (09:06)
[2017-01-20] MEDS: AZTREONAM 2 GM in SOD CHLORIDE 0.9% 100 ML IVPB SCH (09:07)
[2017-01-20] MEDS: DOCUSATE SODIUM 100 MG CAP PO SCH ×5 (09:07→22:20)
--- NOTE | 2017-01-20 12:42 | PN ---
Date/Time of Note Date/Time of Note DATE: 01/20/17 TIME: 12:40 Assessment/Plan VTE Prophylaxis VTE Prophylaxis Intervention: SCD's Lines/Catheters IV Catheter Type (from Nrs): Saline Lock Assessment/Plan Chief Complaint/Hosp Course Assessment/Plan: 61-year-old male with: 1. Chronic constipation, rectal pain and bleeding-patient with history of hemorrhoid, which can explain the bleeding. CT abdomen/pelvis however showed suggestion of possible lower rectal wall thickening/mass. Patient has had history of hemorrhoids in the past, last surgery was in the . He also had recent hip surgery at [facility] back in September of this year, And has been having rectal pain since that time. Pain control, follow-up GI consult - Pending. -Continue on his Anusol and pain management -will increase dosage and frequency of pain medicines today -IV antibiotics x 3 for possible proctitis, follow-up infectious disease recommendations -Follow-up culture results including stool culture -We will also gets general surgery consult for further evaluation. Problems: Subjective 24 Hr Interval Summary Free Text/Dictation Patient still having significant rectal pain. Seen by infectious disease team yesterday. Exam/Review of Systems Vital Signs Vitals Vital Signs Date Time Temp Pulse Resp B/P Pulse Ox O2 Delivery O2 Flow Rate FiO2 01/20/17 07:30 97.8 55 16 125/65 95 01/19/17 03:38 Room Air Intake and Output 01/19/17 01/19/17 01/20/17 15:00 23:00 07:00 Intake Total 1300 ml 1000 ml Output Total 1100 ml 900 ml Balance 200 ml 100 ml Exam Constitutional: alert, oriented, well developed Head: atraumatic, normocephalic Eyes: EOMI, PERRL Respiratory: clear to auscultation, normal air movement Cardiovascular: nl pulses, regular rate and rhythm Gastrointestinal: soft, tender Extremities: normal pulses Results Result Diagram: 01/20/17 0432 01/20/17 0432 Results 24 hrs Laboratory Tests Test 01/20/17 04:32 White Blood Count 17.1 H Red Blood Count 5.20 Hemoglobin 12.9 L Hematocrit 41.0 L Mean Corpuscular Volume 78.8 L Mean Corpuscular Hemoglobin 24.8 L Mean Corpuscular Hemoglobin Concent 31.5 L Red Cell Distribution Width 15.0 H Platelet Count 284 Mean Platelet Volume 12.6 H Neutrophils % 76.6 Lymphocytes % 13.1 L Monocytes % 9.3 Eosinophils % 0.1 Basophils % 0.2 Nucleated Red Blood Cells % 0.0 Neutrophils # 13.1 H Lymphocytes # 2.2 Monocytes # 1.6 H Eosinophils # 0.0 Basophils # 0.0 Nucleated Red Blood Cells # 0.0 Erythrocyte Sedimentation Rate 32 H Sodium Level 139 Potassium Level 4.3 Chloride Level 102 Carbon Dioxide Level 30 Anion Gap 11 Blood Urea Nitrogen 16 Creatinine 1.04 Glucose Level 117 Calcium Level 9.4 Phosphorus Level 4.0 Magnesium Level 2.2 C-Reactive Protein 5.8 H Prostate Specific Antigen 2.7 HIV (1&2) Antibody NEGATIVE Medications Medications Current Medications Ondansetron HCl (Zofran Inj) 4 mg Q6H PRN IV NAUSEA AND/OR VOMITING Last administered on 01/19/17 18:26; Admin Dose 4 MG; Start 01/19/17 at 03:00 Acetaminophen (Tylenol Tab) 650 mg Q6H PRN PO PAIN LEVEL 1-3 OR FEVER; Start 01/19/17 at 03:00 Docusate Sodium (Colace) 100 mg TID PO Last administered on 01/20/17 09:07; Admin Dose 100 MG; Start 01/19/17 at 09:00 Acetaminophen/ Hydrocodone Bitart ([place] (10325)) 1 tab Q6H PRN PO PAIN Last administered on 01/19/17 20:57; Admin Dose 1 TAB; Start 01/19/17 at 03:00 Hydrocortisone (Anusol-Hc Supp) 25 mg BID PRN [place] HEMORROID PAIN/ITCHING; Start 01/19/17 at 03:00 Simethicone 160 mg 160 mg Q6H PRN PO DISTENSION/GAS/BLOATING Last administered on 01/19/17 05:39; Admin Dose 160 MG; Start 01/19/17 at 04:00 Aztreonam 2 gm/ Sodium Chloride 100 ml @ 100 mls/hr Q12 IVPB Last administered on 01/20/17 09:07; Admin Dose 100 MLS/HR; Start 01/19/17 at 13: 00 Ciprofloxacin/ Dextrose 200 ml @ 200 mls/hr Q12 IVPB Last administered on 09:06; Admin Dose 200 MLS/HR; Start 01/19/17 at 21:00 Metronidazole/N/A (Flagyl 500 Mg (Pmx)/Evac Container) 50 ml @ 50 mls/hr Q8 IVPB Last administered on 01/20/17t 05:41; Admin Dose 50 MLS/HR; Start at 20:00 Hydromorphone HCl (Dilaudid) 2 mg Q3H PRN IV PAIN LEVEL 8-10; Start 01/20/17 at 15:00 Morphine Sulfate (morphine) 2 mg Q3H PRN IV SEVERE PAIN LEVEL 7-10; Start at 14:00 Polyethylene Glycol (Miralax) 17 gm DAILY PO ; Start 01/20/17 at 12:30 Docusate Sodium (Colace) 200 mg BID PO ; Start 01/20/17 at 12:30 Senna (Senokot) 2 tab BID PO ; Start 01/20/17 at 12:30 SHELDON BROWN Jan 20, 2017 12:42
[2017-01-20] MEDS: POLYETHYLENE GLYCOL 17 GM PACKET PO SCH (13:27)
[2017-01-20] MEDS: SENNA TAB PO SCH ×2 (13:27→22:20)
--- NOTE | 2017-01-20 13:32 | CONS ---
Date/Time of Note Date/Time of Note DATE: 01/20/17 TIME: 13:28 Assessment/Plan Assessment/Plan Additional Assessment/Plan Rectal pain of uncertain etiology I do not see any external hemorrhoids would be contributing to his pain CT is unrevealing Recommend colonoscopy Recommend MR of the pelvis Consultation Date/Type/Reason Admit Date/Time Jan 19, 2017 at 00:40 Date of Consultation: Jan 20, 2017 Reason for Consultation Rectal pain Hx of Present Illness The patient is a 7-year-old male who was admitted a few days ago due to severe rectal pain. There was some question by history of possible rectal bleeding. This was a second visit to the ER for similar symptoms. He presented 4 days ago and was discharged home. There was some suggestion of rectal mass/ thickening on CT. I was called for consultation. Past Medical History Medical History: no pertinent history Past Surgical History Past Surgical Hx: other (Prior hemorrhoidal surgery) Family History Significant Family History: no pertinent family hx Social History Alcohol Use: none Smoking Status: Never smoker Exam/Review of Systems Vital Signs Vitals Vital Signs Date Time Temp Pulse Resp B/P Pulse Ox O2 Delivery O2 Flow Rate FiO2 01/20/17 07:30 97.8 55 16 125/65 95 01/19/17 03:38 Room Air Intake and Output 01/19/17 01/19/17 01/20/17 15:00 23:00 07:00 Intake Total 1300 ml 1000 ml Output Total 1100 ml 900 ml Balance 200 ml 100 ml Exam Constitutional: alert, oriented, well developed Psych: no complaints Head: normocephalic ENMT: nl external ears & nose Neck: supple Respiratory: clear to auscultation Cardiovascular: regular rate and rhythm Gastrointestinal: soft Musculoskeletal: nl extremities to inspection Extremities: normal pulses Additional Comments Anorectal: No external hemorrhoids present Results Result Diagram: 01/20/17 0432 01/20/17 0432 Results 24 hrs Laboratory Tests Test 01/20/17 04:32 White Blood Count 17.1 H Red Blood Count 5.20 Hemoglobin 12.9 L Hematocrit 41.0 L Mean Corpuscular Volume 78.8 L Mean Corpuscular Hemoglobin 24.8 L Mean Corpuscular Hemoglobin Concent 31.5 L Red Cell Distribution Width 15.0 H Platelet Count 284 Mean Platelet Volume 12.6 H Neutrophils % 76.6 Lymphocytes % 13.1 L Monocytes % 9.3 Eosinophils % 0.1 Basophils % 0.2 Nucleated Red Blood Cells % 0.0 Neutrophils # 13.1 H Lymphocytes # 2.2 Monocytes # 1.6 H Eosinophils # 0.0 Basophils # 0.0 Nucleated Red Blood Cells # 0.0 Erythrocyte Sedimentation Rate 32 H Sodium Level 139 Potassium Level 4.3 Chloride Level 102 Carbon Dioxide Level 30 Anion Gap 11 Blood Urea Nitrogen 16 Creatinine 1.04 Glucose Level 117 Calcium Level 9.4 Phosphorus Level 4.0 Magnesium Level 2.2 C-Reactive Protein 5.8 H Prostate Specific Antigen 2.7 HIV (1&2) Antibody NEGATIVE Medications Medications Current Medications Ondansetron HCl (Zofran Inj) 4 mg Q6H PRN IV NAUSEA AND/OR VOMITING Last administered on 01/19/17 18:26; Admin Dose 4 MG; Start 01/19/17 at 03:00 Acetaminophen (Tylenol Tab) 650 mg Q6H PRN PO PAIN LEVEL 1-3 OR FEVER; Start 01/19/17 at 03:00 Docusate Sodium (Colace) 100 mg TID PO Last administered on 01/20/17 13:27; Admin Dose 100 MG; Start 01/19/17 at 09:00 Acetaminophen/ Hydrocodone Bitart ([place] (10325)) 1 tab Q6H PRN PO PAIN Last administered on 01/19/17 20:57; Admin Dose 1 TAB; Start 01/19/17 at 03:00 Hydrocortisone (Anusol-Hc Supp) 25 mg BID PRN [place] HEMORROID PAIN/ITCHING; Start 01/19/17 at 03:00 Simethicone 160 mg 160 mg Q6H PRN PO DISTENSION/GAS/BLOATING Last administered on 01/19/17 05:39; Admin Dose 160 MG; Start 01/19/17 at 04:00 Aztreonam 2 gm/ Sodium Chloride 100 ml @ 100 mls/hr Q12 IVPB Last administered on 01/20/17 09:07; Admin Dose 100 MLS/HR; Start 01/19/17 at 13: 00 Ciprofloxacin/ Dextrose 200 ml @ 200 mls/hr Q12 IVPB Last administered on 09:06; Admin Dose 200 MLS/HR; Start 01/19/17 at 21:00 Metronidazole/N/A (Flagyl 500 Mg (Pmx)/Evac Container) 50 ml @ 50 mls/hr Q8 IVPB Last administered on 01/20/17 05:41; Admin Dose 50 MLS/HR; Start at 20:00 Hydromorphone HCl (Dilaudid) 2 mg Q3H PRN IV PAIN LEVEL 8-10; Start 01/20/17 at 15:00 Morphine Sulfate (morphine) 2 mg Q3H PRN IV SEVERE PAIN LEVEL 7-10 Last administered on 01/20/17 13:27; Admin Dose 2 MG; Start 01/20/17 at 14:00 Polyethylene Glycol (Miralax) 17 gm DAILY PO Last administered on 01/20/17 13 :27; Admin Dose 17 GM; Start 01/20/17 at 12:30 Docusate Sodium (Colace) 200 mg BID PO Last administered on 01/20/17 13:27; Admin Dose 200 MG; Start 01/20/17 at 12:30 Senna (Senokot) 2 tab BID PO Last administered on 01/20/17 13:27; Admin Dose 2 TAB; Start 01/20/17 at 12:30 MEENA BAH MD Jan 20, 2017 13:32
--- NOTE | 2017-01-20 14:25 | CONS ---
Date/Time of Note Date/Time of Note DATE: 01/20/17 TIME: 14:08 Assessment/Plan Assessment/Plan Chief Complaint/Hosp Course Summary Assessment and Plan: Assessment: No bleeding Rectal pain Plan: Clear liquids today N.p.o. tomorrow after 10 AM Plan for colonoscopy tomorrow Endoscopy - risks/benefits/alternatives/indications of procedure and sedation/ anesthesia discussed with patient who states understanding and gives informed consent to proceed. PARQ held and questions were answered. Patient seen in collaboration with Chief Complaint/Reason for Visit: Rectal bleeding bleeding Rectal pain History of Present Illness: This a pleasant 61-year-old male with history of hemorrhoidectomy, presented to the ER with complaints of rectal bleeding and rectal pain 1 week. Since admission he has not had any further episodes of rectal bleeding however continues to have rectal pain, and he notes rectal pain is not relieved or aggravated anything he is aware of. Lab workup shows minimal anemia with elevated white count. A CT scan was obtained and suggests possible lower rectal wall thickening / mass, and small hiatal hernia. He currently complains of constipation, nausea, had vomiting prior to hospital admission no further episodes, and continued rectal pain. He denies further episodes of rectal bleeding, as well as, dysphagia, pyrosis, unintentional weight loss, or diarrhea. He had colonoscopy in 2010 revealing polyps otherwise negative, and poss family history of CRC i.e. father, but is not completely sure. With clinical presentation plan for colonoscopy tomorrow. Past Medical History: Hemorrhoidectomy Polyps Allergies: Penicillin Iodine Family History: Possible family history of colon cancer i.e. father patient is not sure though Social History: Denies smoking Problems: Consultation Date/Type/Reason Admit Date/Time Jan 19, 2017 at 00:40 Date of Consultation: Jan 20, 2017 Type of Consultation: GI Reason for Consultation Rectal bleeding Rectal pain Gastrointestinal and liver: As noted in HPI Negative for: Anorexia, dysphagia, odynophagia, early satiety, bloating, abdominal pain, food intolerance, diarrhea , change in bowel habits, laxative use, hematemesis, incontinence, Constitutional: no complaints Eyes: no complaints ENT: no complaints Respiratory: no complaints Genitourinary: no complaints Musculoskeletal: no complaints Skin: no complaints Psychological: no complaints Past Medical History Medical History: no pertinent history Past Surgical History Past Surgical Hx: other (Prior hemorrhoidal surgery, polyps ) Family History Significant Family History: other (Possible family history of rectal cancer i.e. father patient is not sure ) Social History Alcohol Use: none Smoking Status: Never smoker Exam/Review of Systems Vital Signs Vitals Vital Signs Date Time Temp Pulse Resp B/P Pulse Ox O2 Delivery O2 Flow Rate FiO2 01/20/17 07:30 97.8 55 16 125/65 95 01/19/17 03:38 Room Air Intake and Output 01/19/17 01/19/17 01/20/17 15:00 23:00 07:00 Intake Total 1300 ml 1000 ml Output Total 1100 ml 900 ml Balance 200 ml 100 ml Results Result Diagram: 01/20/17 0432 01/20/17 0432 Results 24 hrs Laboratory Tests Test 01/20/17 04:32 White Blood Count 17.1 H Red Blood Count 5.20 Hemoglobin 12.9 L Hematocrit 41.0 L Mean Corpuscular Volume 78.8 L Mean Corpuscular Hemoglobin 24.8 L Mean Corpuscular Hemoglobin Concent 31.5 L Red Cell Distribution Width 15.0 H Platelet Count 284 Mean Platelet Volume 12.6 H Neutrophils % 76.6 Lymphocytes % 13.1 L Monocytes % 9.3 Eosinophils % 0.1 Basophils % 0.2 Nucleated Red Blood Cells % 0.0 Neutrophils # 13.1 H Lymphocytes # 2.2 Monocytes # 1.6 H Eosinophils # 0.0 Basophils # 0.0 Nucleated Red Blood Cells # 0.0 Erythrocyte Sedimentation Rate 32 H Sodium Level 139 Potassium Level 4.3 Chloride Level 102 Carbon Dioxide Level 30 Anion Gap 11 Blood Urea Nitrogen 16 Creatinine 1.04 Glucose Level 117 Calcium Level 9.4 Phosphorus Level 4.0 Magnesium Level 2.2 C-Reactive Protein 5.8 H Prostate Specific Antigen 2.7 HIV (1&2) Antibody NEGATIVE Medications Medications Current Medications Ondansetron HCl (Zofran Inj) 4 mg Q6H PRN IV NAUSEA AND/OR VOMITING Last administered on 01/19/17 18:26; Admin Dose 4 MG; Start 01/19/17 at 03:00 Acetaminophen (Tylenol Tab) 650 mg Q6H PRN PO PAIN LEVEL 1-3 OR FEVER; Start 01/19/17 at 03:00 Docusate Sodium (Colace) 100 mg TID PO Last administered on 01/20/17 13:27; Admin Dose 100 MG; Start 01/19/17 at 09:00 Acetaminophen/ Hydrocodone Bitart ([place] (10)) 1 tab Q6H PRN PO PAIN Last administered on 01/19/17 20:57; Admin Dose 1 TAB; Start 01/19/17 at 03:00 Hydrocortisone (Anusol-Hc Supp) 25 mg BID PRN [place] HEMORROID PAIN/ITCHING; Start 01/19/17 at 03:00 Simethicone 160 mg 160 mg Q6H PRN PO DISTENSION/GAS/BLOATING Last administered on 01/19/17 05:39; Admin Dose 160 MG; Start 01/19/17 at 04:00 Aztreonam 2 gm/ Sodium Chloride 100 ml @ 100 mls/hr Q12 IVPB Last administered on 01/20/17 09:07; Admin Dose 100 MLS/HR; Start 01/19/17 at 13: 00 Ciprofloxacin/ Dextrose 200 ml @ 200 mls/hr Q12 IVPB Last administered on 09:06; Admin Dose 200 MLS/HR; Start 01/19/17 at 21:00 Metronidazole/N/A (Flagyl 500 Mg (Pmx)/Evac Container) 50 ml @ 50 mls/hr Q8 IVPB Last administered on 01/20/17 13:28; Admin Dose 50 MLS/HR; Start at 20:00 Hydromorphone HCl (Dilaudid) 2 mg Q3H PRN IV PAIN LEVEL 8-10; Start 01/20/17 at 15:00 Morphine Sulfate (morphine) 2 mg Q3H PRN IV SEVERE PAIN LEVEL 7-10 Last administered on 01/20/17 13:27; Admin Dose 2 MG; Start 01/20/17 at 14:00 Polyethylene Glycol (Miralax) 17 gm DAILY PO Last administered on 01/20/17 13 :27; Admin Dose 17 GM; Start 01/20/17 at 12:30 Docusate Sodium (Colace) 200 mg BID PO Last administered on 01/20/17 13:27; Admin Dose 200 MG; Start 01/20/17 at 12:30 Senna (Senokot) 2 tab BID PO Last administered on 01/20/17 13:27; Admin Dose 2 TAB; Start 01/20/17 at 12:30 Copies To: CC: RADHA VIDAL MD, VICTORIA Jan 20, 2017 14:24
[2017-01-20] MEDS ORDERED: BISACODYL (EC) 5 MG TAB PO ONE (14:30)
[2017-01-20] MEDS: HYDROCODONE/APAP (10/325) TAB PO PRN (16:10)
--- NOTE | 2017-01-20 16:34 | RADRPT ---
PROCEDURE: MR Pelvis with and without contrast. CLINICAL INDICATION: Rectal pain. TECHNIQUE: Protocol: MRI of the pelvis with and without intravenous contrast using a female pelvis soft tisssu e protocol. Contrast: 20 cc of intravenous Magnevist. COMPARISON: CT, 01/18/2017. FINDINGS: There is a large amount of stool identified in the sigmoid colon and rectum. There is a rim enhancin g fluid collection measuring approximately 4.0 x 3.8 x 4.7 cm in the perineal region extending into the anorectal junction with associated luminal narrowing of the lower rectum. Prostate gland, seminal vesicles, and urinary bladder are grossly unremarkable. There is small bilat eral hydrocele. There is a small fat-containing left inguinal hernia. There is susceptibility artifact arising from a right hip replacement. IMPRESSION: Large perianal abscess extending to the anorectal junction resulting in circumferential narrowing of the lower rectum with moderate to large stool identified more proximally. Recommend aspiration/drai nage under CT guidance. RPTAT: EE .Nino Alfred MD, MD Date Time Electronically viewed and signed by .Nino Alfred MD, MD on 01/20/2017 16:39 .C/
[2017-01-20] MEDS ORDERED: MAGNESIUM CITRATE 300 ML BTL PO ONE (17:30)
[2017-01-20] MEDS ORDERED: POLYETHYLENE GLYCOL 3350 119 GM POWDER PO ONE (18:30)
--- NOTE | 2017-01-20 18:59 | PN ---
Date/Time of Note Date/Time of Note DATE: 01/20/17 TIME: 18:58 Assessment/Plan Lines/Catheters IV C[facility]ter Type (from [facility]): [place] Assessment/Plan Chief Complaint/Hosp Course The patient is a 7-year-old male who was admitted a few days ago due to severe rectal pain. There was some question by history of possible rectal bleeding. This was a second visit to the ER for similar symptoms. He presented 4 days ago and was discharged home. There was some suggestion of rectal mass/ thickening on CT. I was called for consultation. Problems: Assessment/Plan MRI shows perirectal abscess. Discussed incision and drainage of perirectal abscess in OR. All benefits, risks, alternatives discussed in detail. All questions answered. The patient likes to proceed Exam/Review of Systems Vital Signs Vitals Vital Signs Date Time Temp Pulse Resp B/P Pulse Ox O2 Delivery O2 Flow Rate FiO2 01/20/17 14:48 98.2 60 18 131/70 97 01/19/17 03:38 Room Air Intake and Output 01/19/17 01/19/17 01/20/17 15:00 23:00 07:00 Intake Total 1300 ml 1000 ml Output Total 1100 ml 900 ml Balance 200 ml 100 ml Results Result Diagram: 01/20/17 0432 01/20/17 0432 MEENA BAH MD Jan 20, 2017 18:59
[2017-01-20] MEDS ORDERED: morphine 2 MG INJ IV PRN (19:00)
[2017-01-20] MEDS ORDERED: IBUPROFEN 600 MG TAB PO PRN (19:00)
[2017-01-20] MEDS ORDERED: ONDANSETRON 4 MG INJ IV PRN ×2 (19:00→20:00)
[2017-01-20] MEDS ORDERED: ACETAMINOPHEN 325 MG TAB PO PRN (19:00)
[2017-01-20] MEDS ORDERED: ROCURONIUM 50 MG INJ ONE (19:09)
[2017-01-20] MEDS ORDERED: LIDOCAINE 2% (SDV) 5 ML INJ ONE (19:09)
[2017-01-20] MEDS ORDERED: SUCCINYLCHOLINE CHLORIDE 100 MG/5 ML SYG IV ONE (19:09)
[2017-01-20] MEDS ORDERED: SUGAMMADEX SODIUM 200 MG/2 ML VIAL IV ONE (19:09)
[2017-01-20] MEDS ORDERED: PROPOFOL 20 ML ONE (19:09)
--- NOTE | 2017-01-20 19:21 | CONS ---
Date/Time of Note Date/Time of Note DATE: 01/20/17 TIME: 19:05 Assessment/Plan Assessment/Plan Chief Complaint/Hosp Course ID PROGRESS NOTE CURRENT ABX: DAY # 2 => Azactam + Cipro + Flagyl + START VANCO to cover Enterococcus s/p Zosyn => DC'd 2/2 acute angioedema 24H INTERVAL SUMMARY * A/A/O, no fevers, WBC up, ESR 32, CRP 5.8, PSA 2.7, RPR (-) HIV(-) * 01/19MICRO: BCx (-); Urine Cx (-) * MRI => (+)Perianal abscess=> Large perianal abscess extending to the anorectal junction resulting in circumferential narrowing of the lower rectum with moderate to large stool identified more proximally. Recommend aspiration/ drainage under CT guidance. 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 SIRS w/subjective fevers, leukocytosis => Improving * ESR 32, CRP 5.8 2. MRI => (+)Large Perianal abscess= * CT abdomen pelvis showed Suggestion of possible lower rectal wall thickening / mass = Proctitis 3. Hx of hemorrhoids + chronic constipation w/straining at stool causing anal fissures and local bleeding . * Hx of prior hemorrhoidectomy 4. Small hiatal hernia 5. s/p L-THR September 2016 ABX ALLERGIES: Iodine Contrast = acute anaphylaxis; PCN = angioedema CURRENT ABX: DAY # 2 => Azactam + Cipro + Flagyl + Start Vanco IV for Enterococcus s/p Zosyn => DC'd 2/2 acute angioedema ID RECOMMENDATIONS 1. MRI => (+)Perianal abscess=> Recommend aspiration/drainage under CT guidance. 2. Will start Vanco IV to cover concern for Enterococcus -> He had acute allergy angioedema reaction to Zosyn . Problems: Consultation Date/Type/Reason Admit Date/Time Jan 19, 2017 at 00:40 Type of Consultation: ID Exam/Review of Systems Vital Signs Vitals Vital Signs Date Time Temp Pulse Resp B/P Pulse Ox O2 Delivery O2 Flow Rate FiO2 01/20/17 14:48 98.2 60 18 131/70 97 01/19/17 03:38 Room Air Intake and Output 01/19/17 01/19/17 01/20/17 15:00 23:00 07:00 Intake Total 1300 ml 1000 ml Output Total 1100 ml 900 ml Balance 200 ml 100 ml Results Result Diagram: 01/20/17 0432 01/20/17 0432 Results 24 hrs Laboratory Tests Test 01/20/17 04:32 White Blood Count 17.1 H Red Blood Count 5.20 Hemoglobin 12.9 L Hematocrit 41.0 L Mean Corpuscular Volume 78.8 L Mean Corpuscular Hemoglobin 24.8 L Mean Corpuscular Hemoglobin Concent 31.5 L Red Cell Distribution Width 15.0 H Platelet Count 284 Mean Platelet Volume 12.6 H Neutrophils % 76.6 Lymphocytes % 13.1 L Monocytes % 9.3 Eosinophils % 0.1 Basophils % 0.2 Nucleated Red Blood Cells % 0.0 Neutrophils # 13.1 H Lymphocytes # 2.2 Monocytes # 1.6 H Eosinophils # 0.0 Basophils # 0.0 Nucleated Red Blood Cells # 0.0 Erythrocyte Sedimentation Rate 32 H Sodium Level 139 Potassium Level 4.3 Chloride Level 102 Carbon Dioxide Level 30 Anion Gap 11 Blood Urea Nitrogen 16 Creatinine 1.04 Glucose Level 117 Calcium Level 9.4 Phosphorus Level 4.0 Magnesium Level 2.2 C-Reactive Protein 5.8 H Prostate Specific Antigen 2.7 Rapid Plasma Reagin NONREACTIVE HIV (1&2) Antibody NEGATIVE Medications Medications Current Medications Ondansetron HCl (Zofran Inj) 4 mg Q6H PRN IV NAUSEA AND/OR VOMITING Last administered on 01/19/17 18:26; Admin Dose 4 MG; Start 01/19/17 at 03:00 Acetaminophen (Tylenol Tab) 650 mg Q6H PRN PO PAIN LEVEL 1-3 OR FEVER; Start 01/19/17 at 03:00 Docusate Sodium (Colace) 100 mg TID PO Last administered on 01/20/17 13:27; Admin Dose 100 MG; Start 01/19/17 at 09:00 Acetaminophen/ Hydrocodone Bitart ([place] (10/325)) 1 tab Q6H PRN PO PAIN Last administered on 01/20/17 16:10; Admin Dose 1 TAB; Start 01/19/17 at 03:00 Hydrocortisone (Anusol-Hc Supp) 25 mg BID PRN [place] HEMORROID PAIN/ITCHING; Start 01/19/17 at 03:00 Simethicone 160 mg 160 mg Q6H PRN PO DISTENSION/GAS/BLOATING Last administered on 01/19/17 05:39; Admin Dose 160 MG; Start 01/19/17 at 04:00 Aztreonam 2 gm/ Sodium Chloride 100 ml @ 100 mls/hr Q12 IVPB Last administered on 01/20/17 09:07; Admin Dose 100 MLS/HR; Start 01/19/17 at 13: 00 Ciprofloxacin/ Dextrose 200 ml @ 200 mls/hr Q12 IVPB Last administered on 09:06; Admin Dose 200 MLS/HR; Start 01/19/17 at 21:00 Metronidazole/N/A (Flagyl 500 Mg (Pmx)/Evac Container) 50 ml @ 50 mls/hr Q8 IVPB Last administered on 01/20/17 13:28; Admin Dose 50 MLS/HR; Start at 20:00 Hydromorphone HCl (Dilaudid) 2 mg Q3H PRN IV PAIN LEVEL 8-10; Start 01/20/17 at 15:00 Morphine Sulfate (morphine) 2 mg Q3H PRN IV SEVERE PAIN LEVEL 7-10 Last administered on 01/20/17 18:50; Admin Dose 2 MG; Start 01/20/17 at 14:00 Polyethylene Glycol (Miralax) 17 gm DAILY PO Last administered on 01/20/17 13 :27; Admin Dose 17 GM; Start 01/20/17 at 12:30 Docusate Sodium (Colace) 200 mg BID PO Last administered on 01/20/17 13:27; Admin Dose 200 MG; Start 01/20/17 at 12:30 Senna (Senokot) 2 tab BID PO Last administered on 01/20/17 13:27; Admin Dose 2 TAB; Start 01/20/17 at 12:30 PUNEET JEONG NP Jan 20, 2017 19:15
[2017-01-20] MEDS ORDERED: VANCOMYCIN IV PER PHARMACY XX SCH (19:30)
[2017-01-20] MEDS ORDERED: LABETALOL HCL 20MG INJ ONE (19:30)
--- NOTE | 2017-01-20 19:35 | SIPON ---
Date/Time of Note Date/Time of Note DATE: 01/20/17 TIME: 19:34 Operative Report Preoperative Diagnosis Terrance-rectal abscess Postoperative Diagnosis Same Operation/Procedure Performed I & D terrance-rectal abscess, EUA Surgeon see signature line assistant professor of german None Anesthesia: general Estimated blood loss: 10 - 50 ml's Transfusion Required none Specimen Cxs Grafts/Implants none Complications none MEENA BAH MD Jan 20, 2017 19:35
--- NOTE | 2017-01-20 19:35 | SIPON ---
Date/Time of Note Date/Time of Note DATE: 01/20/17 TIME: 19:34 Operative Report Preoperative Diagnosis Terrance-rectal abscess Postoperative Diagnosis Same Operation/Procedure Performed I & D terrance-rectal abscess, EUA Surgeon see signature line butcher assistant None Anesthesia: general Estimated blood loss: 10 - 50 ml's Transfusion Required none Specimen Cxs Grafts/Implants none Complications none MEENA BAH MD Jan 20, 2017 19:35
--- NOTE | 2017-01-20 19:35 | SIPON ---
Date/Time of Note Date/Time of Note DATE: 01/20/17 TIME: 19:34 Operative Report Preoperative Diagnosis Terrance-rectal abscess Postoperative Diagnosis Same Operation/Procedure Performed I & D terrance-rectal abscess, EUA Surgeon see signature line assistant executive housekeeper None Anesthesia: general Estimated blood loss: 10 - 50 ml's Transfusion Required none Specimen Cxs Grafts/Implants none Complications none MEENA BAH MD Jan 20, 2017 19:35
--- NOTE | 2017-01-20 19:36 | OPR ---
Date/Time of Note Date/Time of Note DATE: 01/20/17 TIME: 19:35 Operative Report Procedure Date: Jan 20, 2017 Preoperative Diagnosis Terrance-rectal abscess Postoperative Diagnosis same Operation/Procedure Performed EUA, I & ED terrance-rectal abscess Surgeon see signature line Nurse Navigator none Anesthesia Type: general Anesthesiologist: KEVIN MCKEON Estimated Blood Loss: 10 - 50 ml's Transfusion none Specimen Cxs Grafts/Implants none Complications none Pt Condition Post Procedure: stable Disposition: PACU Indications The patient is a 61-year-old male who was admitted for perirectal pain. MRI showed a perirectal abscess. We discussed incision and drainage of his perirectal abscess. All benefits, risks, alternatives were discussed in detail. All questions answered the patient like to proceed. Procedure Description The patient was brought to operative room placed supine on the table. After preop antibiotics and SCDs were applied, the patient was intubated. The patient was placed in lithotomy position. The perirectal area was cleaned, prepped, and draped in usual sterile fashion. An exam under anesthesia was performed. I identified the abscess at the 7 o'clock position. A cruciate incision was made in the perianal area. I immediately entered a pus pocket and evacuated approximately 300 cc of pus. Cultures were taken. I then irrigated and aspirated the cavity to left was clear. All loculations were broken up. The wound was then packed with one-inch gauze. A sterile dressing was applied. The patient procedure well, was extubated in the OR, and was transferred to recovery in stable condition. MEENA BAH MD Jan 20, 2017 19:36
[2017-01-20] MEDS ORDERED: LABETALOL HCL 20MG INJ IV PRN (20:00)
[2017-01-20] MEDS ORDERED: FENTAnyl 50 MCG/ML VIAL IV PRN ×3 (20:00)
[2017-01-20] MEDS ORDERED: METOCLOPRAMIDE 10 MG INJ IV PRN (20:00)
[2017-01-20] MEDS ORDERED: MEPERIDINE 25 MG INJ IV PRN (20:00)
[2017-01-20] MEDS ORDERED: DIPHENHYDRAMINE 50 MG INJ IV PRN (20:00)
[2017-01-20] MEDS ORDERED: HYDROmorphONE (0.2 MG/ML) 10ML SYG IV PRN (20:00)
[2017-01-20] MEDS: HYDROmorphONE (0.2 MG/ML) 10ML SYG IV PRN ×4 (20:04→20:29)
[2017-01-20] MEDS: D5-NS + KCL 20 MEQ 1,000 ML IV SCH (22:05)
[2017-01-20] MEDS: LEVOFLOXACIN 500MG/D5W (PMX) 100 ML IVPB SCH (22:15)
[2017-01-20] MEDS: HYDROmorphONE 2 MG/ML SYG IV PRN (22:46)
[2017-01-20] MEDS: metroNIDAZOLE 500 MG/NS (PMX) 100 ML IVPB SCH (23:48)
[2017-01-21] VITALS: BP 126/61; PULSE 54; RESP 20
[2017-01-21] MEDS: HYDROmorphONE 2 MG/ML SYG IV PRN ×4 (01:53→16:10)
[2017-01-21] MEDS: ONDANSETRON 4 MG INJ IV PRN ×2 (02:21→17:39)
[2017-01-21 02:30] VITALS: BP 133/65; PULSE 52; RESP 20
[2017-01-21 02:35] VITALS: BP 133/65; RESP 20
[2017-01-21] MEDS: HYDROCODONE/APAP (5/325) TAB PO PRN ×2 (05:00→21:47)
[2017-01-21] MEDS: D5-NS + KCL 20 MEQ 1,000 ML IV SCH (05:00)
[2017-01-21] MEDS: metroNIDAZOLE 500 MG/NS (PMX) 100 ML IVPB SCH ×2 (05:27→13:10)
[2017-01-21] MEDS ORDERED: POLYETHYLENE GLYCOL 3350 119 GM POWDER PO ONE (06:00)
[2017-01-21 07:25] VITALS: BP 118/68; RESP 19
[2017-01-21] MEDS: DOCUSATE SODIUM 100 MG CAP PO SCH ×5 (07:45→21:46)
[2017-01-21] MEDS ORDERED: BISACODYL (EC) 5 MG TAB PO ONE (08:00)
[2017-01-21] MEDS: ENOXAPARIN 40 MG/0.4 ML SYG SC SCH (08:31)
[2017-01-21] MEDS: POLYETHYLENE GLYCOL 17 GM PACKET PO SCH (08:35)
[2017-01-21] MEDS: SENNA TAB PO SCH ×2 (08:35→21:46)
[2017-01-21] MEDS: HYDROCODONE/APAP (10/325) TAB PO PRN (11:03)
--- NOTE | 2017-01-21 14:07 | PN ---
Date/Time of Note Date/Time of Note DATE: 01/21/17 TIME: 13:54 Assessment/Plan VTE Prophylaxis VTE Prophylaxis Intervention: SCD's Lines/Catheters IV Catheter Type (from Nrsg): Peripheral IV Urinary Cath still in place: Yes Reason Cath still needed: skin wounds contaminated by urine Assessment/Plan Assessment/Plan 61 yo M admitted for rectal pain/bleeding found to have large perirectal abscess for which he underwent I&D 01.20. #perirectal abscess -cultures in process. cont empiric levo/flagyll. No compelling indication for addition of aztreonam in patient already on ciprofloxacin which has sufficient gram negative coverage Case could easily be made that now abscess has been drained and pt without any hx of DM2 or immunosuppression no further abx are indicated cont abx x 3 days per gen surg rec #h/o colon polyps will need outpatient PCP/GI follow up for surveillance endoscopy likely dc in 1-2 days if OK with general surgery Subjective 24 Hr Interval Summary Free Text/Dictation Hasn't had a BM since his I&D Exam/Review of Systems Vital Signs Vitals Vital Signs Date Time Temp Pulse Resp B/P Pulse Ox O2 Delivery O2 Flow Rate FiO2 01/21/17 13:51 2.0 01/21/17 07:45 Nasal Cannula 01/21/17 07:25 98.6 46 19 118/68 99 Intake and Output 01/20/17 01/20/17 01/21/17 15:00 23:00 07:00 Intake Total 350 ml 500 ml 800 ml Output Total 400 ml Balance 350 ml 500 ml 400 ml Exam nad no mrg lungs clear abd soft no rashes Results Result Diagram: 01/21/17 0446 01/21/17 0446 Results 24 hrs Laboratory Tests Test 01/21/17 04:46 White Blood Count 14.5 H Red Blood Count 4.96 Hemoglobin 12.6 L Hematocrit 38.9 L Mean Corpuscular Volume 78.4 L Mean Corpuscular Hemoglobin 25.4 L Mean Corpuscular Hemoglobin Concent 32.4 Red Cell Distribution Width 15.0 H Platelet Count 283 Mean Platelet Volume 12.6 H Neutrophils % 80.7 H Lymphocytes % 9.6 L Monocytes % 8.9 Eosinophils % 0.1 Basophils % 0.2 Nucleated Red Blood Cells % 0.0 Neutrophils # 11.7 H Lymphocytes # 1.4 Monocytes # 1.3 H Eosinophils # 0.0 Basophils # 0.0 Nucleated Red Blood Cells # 0.0 Sodium Level 136 Potassium Level 4.0 Chloride Level 99 Carbon Dioxide Level 31 Anion Gap 10 Blood Urea Nitrogen 14 Creatinine 0.97 Glucose Level 139 Calcium Level 9.1 Medications Medications Current Medications Ondansetron HCl (Zofran Inj) 4 mg Q6H PRN IV NAUSEA AND/OR VOMITING Last administered on 01/21/17 02:21; Admin Dose 4 MG; Start 01/19/17 at 03:00 Acetaminophen (Tylenol Tab) 650 mg Q6H PRN PO PAIN LEVEL 1-3 OR FEVER; Start 01/19/17 at 03:00 Docusate Sodium (Colace) 100 mg TID PO Last administered on 01/21/17 13:10; Admin Dose 100 MG; Start 01/19/17 at 09:00 Acetaminophen/ Hydrocodone Bitart ([place] (10/325)) 1 tab Q6H PRN PO PAIN Last administered on 01/21/17 11:03; Admin Dose 1 TAB; Start 01/19/17 at 03:00 Hydrocortisone (Anusol-Hc Supp) 25 mg BID PRN [place] HEMORROID PAIN/ITCHING; Start 01/19/17 at 03:00 Simethicone 160 mg 160 mg Q6H PRN PO DISTENSION/GAS/BLOATING Last administered on 01/19/17 05:39; Admin Dose 160 MG; Start 01/19/17 at 04:00 Aztreonam 2 gm/ Sodium Chloride 100 ml @ 100 mls/hr Q12 IVPB Last administered on 01/20/17 09:07; Admin Dose 100 MLS/HR; Start 01/19/17 at 13: 00; Status Future Hold Ciprofloxacin/ Dextrose (Cipro Ivpb) 200 ml @ 200 mls/hr Q12 IVPB Last administered on 01/20/17 09:06; Admin Dose 200 MLS/HR; Start 01/19/17 at 21: 00; Status Future Hold Hydromorphone HCl (Dilaudid) 2 mg Q3H PRN IV PAIN LEVEL 8-10 Last administered on 01/21/17 13:10; Admin Dose 2 MG; Start 01/20/17 at 15:00 Morphine Sulfate (morphine) 2 mg Q3H PRN IV SEVERE PAIN LEVEL 7-10 Last administered on 01/20/17 18:50; Admin Dose 2 MG; Start 01/20/17 at 14:00 Polyethylene Glycol (Miralax) 17 gm DAILY PO Last administered on 01/21/17 08 :35; Admin Dose 17 GM; Start 01/20/17 at 12:30 Docusate Sodium (Colace) 200 mg BID PO Last administered on 01/21/17 08:35; Admin Dose 200 MG; Start 01/20/17 at 12:30 Senna 2 tab 2 tab BID PO Last administered on 01/21/17 08:35; Admin Dose 2 TAB; Start 01/20/17 at 12:30 Metronidazole (Flagyl 500 Mg (Pmx)) 100 ml @ 100 mls/hr Q8H IVPB Last administered on 01/21/17 13:10; Admin Dose 100 MLS/HR; Start 01/20/17 at 21: 00; Stop 01/23/17 at 20:59 Morphine Sulfate (morphine) 4 mg Q2H PRN IV PAIN LEVEL 6-10; Start 01/20/17 at 19:00 Acetaminophen/ Hydrocodone Bitart ([place] (5/325)) 1 tab Q6H PRN PO PAIN LEVEL 6 -10 Last administered on 01/21/17 05:00; Admin Dose 1 TAB; Start 01/20/17 at 19:00 Acetaminophen (Tylenol Tab) 650 mg Q6H PRN PO PAIN AND OR ELEVATED TEMP; Start 01/20/17 at 19:00 Ibuprofen (Motrin) 600 mg Q6H PRN PO PAIN LEVEL 1-5; Start 01/20/17 at 19:00 Ondansetron HCl 4 mg 4 mg Q6H PRN IV NAUSEA AND/OR VOMITING; Start 01/20/17 at 19:00 Potassium Chloride/Dextrose/ Sod Cl (D5-NS + KCl 20 Meq) 1,000 ml @ 100 mls/hr Q10H IV Last administered on 01/20/17 22:05; Admin Dose 100 MLS/HR; Start at 19:00 Enoxaparin Sodium 40 mg 40 mg DAILY@07 SC Last administered on 01/21/17 08:31 ; Admin Dose 40 MG; Start 01/21/17 at 07:00 Levofloxacin/ Dextrose (Levaquin 500mg/ D5W 100 ml (Pmx)) 100 ml @ 100 mls/hr Q24H IVPB Last administered on 01/20/17t 22:15; Admin Dose 100 MLS/HR; Start 01/20/17 at 20:00; Stop 01/23/17 at 19:59 DIPAK PRITCHETT MD Jan 21, 2017 14:05
[2017-01-21 15:10] VITALS: BP 121/67; RESP 20
[2017-01-21 19:41] VITALS: BP 133/70; RESP 16
[2017-01-21] MEDS: LEVOFLOXACIN 500MG/D5W (PMX) 100 ML IVPB SCH (21:40)
[2017-01-21] MEDS: CEPASTAT LOZENGE MT PRN (23:46)
[2017-01-22] MEDS: metroNIDAZOLE 500 MG/NS (PMX) 100 ML IVPB SCH (00:55)
[2017-01-22] MEDS: CEPASTAT LOZENGE MT PRN ×2 (00:58→04:44)
[2017-01-22] MEDS ORDERED: DIPHENHYDRAMINE 50 MG INJ ONE (01:05)
[2017-01-22 01:11] VITALS: BP 153/94; RESP 16
[2017-01-22] MEDS ORDERED: FAMOTIDINE 20 MG INJ ONE (01:18)
[2017-01-22] MEDS ORDERED: FAMOTIDINE 20 MG INJ IV ONE (01:30)
[2017-01-22] MEDS ORDERED: DIPHENHYDRAMINE 50 MG INJ IV ONE (01:30)
[2017-01-22] MEDS: HYDROCODONE/APAP (10/325) TAB PO PRN ×3 (04:44→16:53)
--- NOTE | 2017-01-22 06:39 | PN ---
DATE: 01/21/2017 SUBJECTIVE: No acute changes. Patient is alert, feels better. Looks comfortable, no fevers. LABORATORY STUDIES: WBC today 14.5, neutrophils 80.7. MICROBIOLOGY: Rectal drainage sent for culture, growing gram-negative rods. ANTIMICROBIALS: The patient is on Flagyl and Levaquin. ALLERGIES: PENICILLIN. PHYSICAL EXAMINATION: GENERAL: Well-nourished, well-developed elderly -[place] man who is alert, in no distress. HEENT: Head atraumatic, normocephalic. Sclerae anicteric. Buccal mucosa pink. NECK: Supple. CHEST: Rise symmetrical. Breath sounds diminished to bases. HEART: S1, S2. ABDOMEN: Soft, bowel tones present. EXTREMITIES: Without cyanosis. ASSESSMENT: 1. Systemic inflammatory response syndrome with fevers and leukocytosis. 2. Large perianal abscess, status post incision and drainage. 3. History of left total knee replacement in 09/2016. PLAN: Patient remains stable. We will continue him on current regimen. Await final cultures. Con tinue local wound care as per surgical recommendations. Dictated By: URIEL URRUTIA DIRECTOR OF PROVIDER RELATIONS for SAULO REGAN MD NI/NTS Conf#: [id number] DID#: [id number]
--- NOTE | 2017-01-22 06:39 | PN ---
DATE: 01/21/2017 SUBJECTIVE: No acute changes. Patient is alert, feels better. Looks comfortable, no fevers. LABORATORY STUDIES: WBC today 14.5, neutrophils 80.7. MICROBIOLOGY: Rectal drainage sent for culture, growing gram-negative rods. ANTIMICROBIALS: The patient is on Flagyl and Levaquin. ALLERGIES: PENICILLIN. PHYSICAL EXAMINATION: GENERAL: Well-nourished, well-developed elderly -[place] man who is alert, in no distress. HEENT: Head atraumatic, normocephalic. Sclerae anicteric. Buccal mucosa pink. NECK: Supple. CHEST: Rise symmetrical. Breath sounds diminished to bases. HEART: S1, S2. ABDOMEN: Soft, bowel tones present. EXTREMITIES: Without cyanosis. ASSESSMENT: 1. Systemic inflammatory response syndrome with fevers and leukocytosis. 2. Large perianal abscess, status post incision and drainage. 3. History of left total knee replacement in 09/2016. PLAN: Patient remains stable. We will continue him on current regimen. Await final cultures. Con tinue local wound care as per surgical recommendations. Dictated By: URIEL URRUTIA VETERANS CONTACT REPRESENTATIVE for SAULO REGAN MD NI/NTS Conf#: [id number] DID#: [id number]
--- NOTE | 2017-01-22 06:39 | PN ---
DATE: 01/21/2017 SUBJECTIVE: No acute changes. Patient is alert, feels better. Looks comfortable, no fevers. LABORATORY STUDIES: WBC today 14.5, neutrophils 80.7. MICROBIOLOGY: Rectal drainage sent for culture, growing gram-negative rods. ANTIMICROBIALS: The patient is on Flagyl and Levaquin. ALLERGIES: PENICILLIN. PHYSICAL EXAMINATION: GENERAL: Well-nourished, well-developed elderly -[place] man who is alert, in no distress. HEENT: Head atraumatic, normocephalic. Sclerae anicteric. Buccal mucosa pink. NECK: Supple. CHEST: Rise symmetrical. Breath sounds diminished to bases. HEART: S1, S2. ABDOMEN: Soft, bowel tones present. EXTREMITIES: Without cyanosis. ASSESSMENT: 1. Systemic inflammatory response syndrome with fevers and leukocytosis. 2. Large perianal abscess, status post incision and drainage. 3. History of left total knee replacement in 09/2016. PLAN: Patient remains stable. We will continue him on current regimen. Await final cultures. Con tinue local wound care as per surgical recommendations. Dictated By: URIEL URRUTIA STORE STOCK HELP for SAULO REGAN MD NI/NTS Conf#: [id number] DID#: [id number]
[2017-01-22] MEDS: ENOXAPARIN 40 MG/0.4 ML SYG SC SCH (08:00)
[2017-01-22 08:08] VITALS: BP 120/73; RESP 18
[2017-01-22] MEDS: SENNA TAB PO SCH ×2 (08:30→21:26)
[2017-01-22] MEDS: POLYETHYLENE GLYCOL 17 GM PACKET PO SCH (08:31)
[2017-01-22] MEDS: DOCUSATE SODIUM 100 MG CAP PO SCH ×2 (08:31→21:26)
--- NOTE | 2017-01-22 09:31 | PN ---
Date/Time of Note Date/Time of Note DATE: 01/22/17 TIME: 09:25 Assessment/Plan VTE Prophylaxis VTE Prophylaxis Intervention: SCD's Lines/Catheters IV Catheter Type (from Nrsg): Peripheral IV Urinary Cath still in place: Yes Reason Cath still needed: skin wounds contaminated by urine Assessment/Plan Chief Complaint/Hosp Course Summary Assessment and Plan: Assessment: Rectal bleeding/Rectal pain Secondary to perianal abscess S/p I/D perianal abscess Plan: Diet per surgery Wound care per surgery Pain management Pt will need out-patient colonoscopy once completed healed for hx of polyps last colon 2010 Patient seen in collaboration with Subjective: Course reviewed with nursing staff Patient interviewed and examined All labs, imaging and other results reviewed The patient I/D of perianal abscess Saturday Continues to have pain currently on [place]- family at bedside PHYSICAL EXAMINATION: GENERAL: Well developed, well nourished, alert & oriented x 3, in no acute distress SKIN: No lesions, no stigmata chronic liver disease, no evidence of bleeding diathesis, surgical incision perianal area LYMPHATIC: No palpable lymphadenopathy. HEAD: Normocephalic, atraumatic, no tenderness. EYES: Pupils equal reactive to light and accommodation, full extraocular movements, sclera clear, non-icteric, no discharge. EARS/NOSE AND THROAT: Ears normal, nose normal, oropharynx normal, oral membranes well hydrated without lesions. NECK: Supple, no masses, thyroid normal, JVP within normal limits, carotids normal without bruits. CHEST: Inspection within normal limits. CARDIOVASCULAR: Heart: Regular rate and rhythm, no murmurs, gallops or rubs. Peripheral pulses present within normal limits, no cyanosis, clubbing or edemas. No pulsatile abdominal mass RESPIRATORY: Lungs clear to auscultation and percussion, no wheezing, no rubs GASTROINTESTINAL AND LIVER: Abdomen: Soft, non tenderness, non-distended, no hernias, no masses, no organomegaly, no ascites, no guarding, no rebound tenderness, normoactive bowel sounds. Rectal: Deferred. GENITOURINARY: Male genitalia within normal limits. Problems: Exam/Review of Systems Vital Signs Vitals Vital Signs Date Time Temp Pulse Resp B/P Pulse Ox O2 Delivery O2 Flow Rate FiO2 01/22/17 08:08 97.8 56 18 120/73 99 01/22/17 00:16 2.0 10/30/17 07:45 Nasal Cannula Intake and Output 01/21/17 01/21/17 01/22/17 15:00 23:00 07:00 Intake Total 1000 ml 700 ml 360 ml Output Total 1600 ml Balance 1000 ml -900 ml 360 ml Results Result Diagram: 01/22/17 0455 01/22/17 0455 Results 24 hrs Laboratory Tests Test 01/22/17 04:55 White Blood Count 12.5 H Red Blood Count 5.24 Hemoglobin 13.4 L Hematocrit 41.5 L Mean Corpuscular Volume 79.2 L Mean Corpuscular Hemoglobin 25.6 L Mean Corpuscular Hemoglobin Concent 32.3 Red Cell Distribution Width 14.8 H Platelet Count 290 Mean Platelet Volume 12.2 H Neutrophils % 62.8 Lymphocytes % 25.1 Monocytes % 10.1 Eosinophils % 1.3 Basophils % 0.4 Nucleated Red Blood Cells % 0.0 Neutrophils # 7.9 H Lymphocytes # 3.2 H Monocytes # 1.3 H Eosinophils # 0.2 Basophils # 0.1 Nucleated Red Blood Cells # 0.0 Sodium Level 141 Potassium Level 4.0 Chloride Level 103 Carbon Dioxide Level 30 Anion Gap 12 Blood Urea Nitrogen 11 Creatinine 1.02 Glucose Level 93 # Calcium Level 9.2 Medications Medications Current Medications Ondansetron HCl (Zofran Inj) 4 mg Q6H PRN IV NAUSEA AND/OR VOMITING Last administered on 01/21/17 17:39; Admin Dose 4 MG; Start 01/19/17 at 03:00 Acetaminophen (Tylenol Tab) 650 mg Q6H PRN PO PAIN LEVEL 1-3 OR FEVER; Start 01/19/17 at 03:00 Acetaminophen/ Hydrocodone Bitart ([place] (10/325)) 1 tab Q6H PRN PO PAIN Last administered on 01/22/17 04:44; Admin Dose 1 TAB; Start 01/19/17 at 03:00 Hydrocortisone (Anusol-Hc Supp) 25 mg BID PRN [place] HEMORROID PAIN/ITCHING; Start 01/19/17 at 03:00 Simethicone (Mylicon) 160 mg Q6H PRN PO DISTENSION/GAS/BLOATING Last administered on 01/19/17 05:39; Admin Dose 160 MG; Start 01/19/17 at 04:00 Hydromorphone HCl (Dilaudid) 2 mg Q3H PRN IV PAIN LEVEL 8-10 Last administered on 01/21/17 16:10; Admin Dose 2 MG; Start 01/20/17 at 15:00 Morphine Sulfate (morphine) 2 mg Q3H PRN IV SEVERE PAIN LEVEL 7-10 Last administered on 01/20/17 18:50; Admin Dose 2 MG; Start 01/20/17 at 14:00 Polyethylene Glycol (Miralax) 17 gm DAILY PO Last administered on 01/22/17 08 :31; Admin Dose 17 GM; Start 01/20/17 at 12:30 Docusate Sodium (Colace) 200 mg BID PO Last administered on 01/22/17 08:31; Admin Dose 200 MG; Start 01/20/17 at 12:30 Senna (Senokot) 2 tab BID PO Last administered on 01/22/17 08:30; Admin Dose 2 TAB; Start 01/20/17 at 12:30 Morphine Sulfate (morphine) 4 mg Q2H PRN IV PAIN LEVEL 6-10; Start 01/20/17 at 19:00 Acetaminophen/ Hydrocodone Bitart ([place] (5/325)) 1 tab Q6H PRN PO PAIN LEVEL 6 -10 Last administered on 01/21/17 21:47; Admin Dose 1 TAB; Start 01/20/17 at 19:00 Acetaminophen (Tylenol Tab) 650 mg Q6H PRN PO PAIN AND OR ELEVATED TEMP; Start 01/20/17 at 19:00 Ibuprofen (Motrin) 600 mg Q6H PRN PO PAIN LEVEL 1-5 Last administered on 07:55; Admin Dose 600 MG; Start 01/20/17 at 19:00 Ondansetron HCl (Zofran Inj) 4 mg Q6H PRN IV NAUSEA AND/OR VOMITING; Start at 19:00 Enoxaparin Sodium 40 mg 40 mg DAILY@07 SC Last administered on 01/22/17 08:00 ; Admin Dose 40 MG; Start 01/21/17 at 07:00 Levofloxacin/ Dextrose (Levaquin 500mg/ D5W 100 ml (Pmx)) 100 ml @ 100 mls/hr Q24H IVPB Last administered on 01/21/17 21:40; Admin Dose 100 MLS/HR; Start 01/20/17 at 20:00; Stop 01/23/17 at 19:59 Phenol (Cepastat Lozenge) 1 lozenge Q1H PRN MT SORE THROAT Last administered on 01/22/17t 04:44; Admin Dose 1 LOZENGE; Start 01/21/17 at 23:30 YANI CHRISTENSEN Jan 22, 2017 09:31
[2017-01-22] MEDS: morphine 2 MG INJ IV PRN (09:58)
--- NOTE | 2017-01-22 13:02 | PN ---
Date/Time of Note Date/Time of Note DATE: 01/22/17 TIME: 13:01 Assessment/Plan Lines/Catheters IV Catheter Type (from Nrs): Saline Lock Galarza in Place (from Nrs): Yes Assessment/Plan Chief Complaint/Hosp Course Postop day #2 status post I&D of perirectal abscess Dressing was repacked today, resolving perirectal abscess WBC resolving and afebrile Patient does have considerable pain out of proportion to clinical finding Continue bowel regimen Be able to discharge in day or so after having bowel movement. Problems: Subjective 24 Hr Interval Summary Additional Comments Still complaining of pain. Passing flatus. No bowel movement. Exam/Review of Systems Vital Signs Vitals Vital Signs Date Time Temp Pulse Resp B/P Pulse Ox O2 Delivery O2 Flow Rate FiO2 01/22/17 08:08 97.8 56 18 120/73 99 01/22/17 00:16 2.0 01/21/17 07:45 Nasal Cannula Intake and Output 01/21/17 01/21/17 01/22/17 15:00 23:00 07:00 Intake Total 1000 ml 700 ml 360 ml Output Total 1600 ml Balance 1000 ml -900 ml 360 ml Exam Constitutional: alert, oriented, well developed Neck: supple Respiratory: clear to auscultation Cardiovascular: regular rate and rhythm Gastrointestinal: soft Additional Comments Anorectal -packing removed and replaced, minimal purulent drainage, less edema and induration. Results Result Diagram: 01/22/17 0455 01/22/17 0455 MEENA BAH MD Jan 22, 2017 13:02
[2017-01-22 14:00] VITALS: BP 138/78; RESP 18
--- NOTE | 2017-01-22 14:09 | PN ---
Date/Time of Note Date/Time of Note DATE: 01/22/17 TIME: 14:04 Assessment/Plan VTE Prophylaxis VTE Prophylaxis Intervention: SCD's Lines/Catheters IV Catheter Type (from Nrsg): Saline Lock Urinary Cath still in place: Yes Reason Cath still needed: other (indicate) Assessment/Plan Assessment/Plan 61 yo M admitted for rectal pain/bleeding found to have large perirectal abscess for which he underwent I&D 01.20. #perirectal abscess -cultures in process. cont empiric levo/flagyll. will completed 7 days fluoroquinolone given resultant bacteremia #h/o colon polyps will need outpatient PCP/GI follow up for surveillance endoscopy likely dc in 1-2 days if OK with general surgery Subjective 24 Hr Interval Summary Free Text/Dictation pain much improved from admission Exam/Review of Systems Vital Signs Vitals Vital Signs Date Time Temp Pulse Resp B/P Pulse Ox O2 Delivery O2 Flow Rate FiO2 01/22/17 08:08 97.8 56 18 120/73 99 01/22/17 00:16 2.0 01/21/17 07:45 Nasal Cannula Intake and Output 01/21/17 01/21/17 01/22/17 15:00 23:00 07:00 Intake Total 1000 ml 700 ml 360 ml Output Total 1600 ml Balance 1000 ml -900 ml 360 ml Exam nad no mrg lungs clear abd soft no rashes perianal wound unpacked by gen surg during my visit cultures noted +blood culture most likely bacteremia from the abscess Results Result Diagram: 01/22/17 0455 01/22/17 0455 Results 24 hrs Laboratory Tests Test 01/22/17 04:55 White Blood Count 12.5 H Red Blood Count 5.24 Hemoglobin 13.4 L Hematocrit 41.5 L Mean Corpuscular Volume 79.2 L Mean Corpuscular Hemoglobin 25.6 L Mean Corpuscular Hemoglobin Concent 32.3 Red Cell Distribution Width 14.8 H Platelet Count 290 Mean Platelet Volume 12.2 H Neutrophils % 62.8 Lymphocytes % 25.1 Monocytes % 10.1 Eosinophils % 1.3 Basophils % 0.4 Nucleated Red Blood Cells % 0.0 Neutrophils # 7.9 H Lymphocytes # 3.2 H Monocytes # 1.3 H Eosinophils # 0.2 Basophils # 0.1 Nucleated Red Blood Cells # 0.0 Sodium Level 141 Potassium Level 4.0 Chloride Level 103 Carbon Dioxide Level 30 Anion Gap 12 Blood Urea Nitrogen 11 Creatinine 1.02 Glucose Level 93 # Calcium Level 9.2 Medications Medications Current Medications Ondansetron HCl (Zofran Inj) 4 mg Q6H PRN IV NAUSEA AND/OR VOMITING Last administered on 01/21/17 17:39; Admin Dose 4 MG; Start 01/19/17 at 03:00 Acetaminophen (Tylenol Tab) 650 mg Q6H PRN PO PAIN LEVEL 1-3 OR FEVER; Start 01/19/17 at 03:00 Acetaminophen/ Hydrocodone Bitart ([place] (10/325)) 1 tab Q6H PRN PO PAIN Last administered on 01/22/17 10:49; Admin Dose 1 TAB; Start 01/19/17 at 03:00 Hydrocortisone (Anusol-Hc Supp) 25 mg BID PRN OR HEMORROID PAIN/ITCHING; Start 01/19/17 at 03:00 Simethicone (Mylicon) 160 mg Q6H PRN PO DISTENSION/GAS/BLOATING Last administered on 01/19/17 05:39; Admin Dose 160 MG; Start 01/19/17 at 04:00 Polyethylene Glycol (Miralax) 17 gm DAILY PO Last administered on 01/22/17 08 :31; Admin Dose 17 GM; Start 01/20/17 at 12:30 Docusate Sodium (Colace) 200 mg BID PO Last administered on 01/22/17 08:31; Admin Dose 200 MG; Start 01/20/17 at 12:30 Senna (Senokot) 2 tab BID PO Last administered on 01/22/17 08:30; Admin Dose 2 TAB; Start 01/20/17 at 12:30 Acetaminophen/ Hydrocodone Bitart ([place] (5/325)) 1 tab Q6H PRN PO PAIN LEVEL 6 -10 Last administered on 01/21/17 21:47; Admin Dose 1 TAB; Start 01/20/17 at 19:00 Acetaminophen (Tylenol Tab) 650 mg Q6H PRN PO PAIN AND OR ELEVATED TEMP; Start 01/20/17 at 19:00 Ibuprofen (Motrin) 600 mg Q6H PRN PO PAIN LEVEL 1-5 Last administered on 07:55; Admin Dose 600 MG; Start 01/20/17 at 19:00 Ondansetron HCl (Zofran Inj) 4 mg Q6H PRN IV NAUSEA AND/OR VOMITING; Start at 19:00 Enoxaparin Sodium 40 mg 40 mg DAILY@07 SC Last administered on 01/22/17 08:00 ; Admin Dose 40 MG; Start 01/21/17 at 07:00 Levofloxacin/ Dextrose (Levaquin 500mg/ D5W 100 ml (Pmx)) 100 ml @ 100 mls/hr Q24H IVPB Last administered on 01/21/17 21:40; Admin Dose 100 MLS/HR; Start 01/20/17 at 20:00; Stop 01/23/17 at 19:59 Phenol (Cepastat Lozenge) 1 lozenge Q1H PRN MT SORE THROAT Last administered on 01/22/17 04:44; Admin Dose 1 LOZENGE; Start 01/21/17 at 23:30 Levofloxacin (Levaquin) 500 mg DAILY@06 PO ; Start 01/23/17 at 06:00 Hydromorphone HCl (Dilaudid) 3 mg Q3H PRN IV PAIN LEVEL 8-10; Start 01/22/17 at 15:00 Linezolid (Zyvox) 600 mg BID PO ; Start 01/22/17 at 21:00 DIPAK PRITCHETT MD Jan 22, 2017 14:09 DIPAK PRITCHETT MD Jan 22, 2017 14:09
[2017-01-22] MEDS ORDERED: HYDROmorphONE 2 MG/ML SYG IV PRN (15:00)
--- NOTE | 2017-01-22 15:14 | PN ---
DATE: 01/22/2017 SUBJECTIVE: The patient is sleeping, looks comfortable, no fevers. He developed allergic reaction to Flagyl yesterday. Started on Levaquin p.o. today. Rectal swab growing enterococcal species and E. coli. Blood culture growing gram-negative rods. ALLERGIES: PENICILLIN, REACTION UNKNOWN. PHYSICAL EXAMINATION: GENERAL: This is a well-developed, well-nourished elderly -Citizen Of [place] man who is awake, in no distress. HEENT: Head atraumatic, normocephalic. Sclerae anicteric. Buccal mucosa dry. NECK: Supple. CHEST: Rise symmetrical. Breath sounds diminished to bases. HEART: S1, S2. ABDOMEN: Soft, bowel tones present. EXTREMITIES: Without cyanosis. ASSESSMENT: 1. Systemic inflammatory response syndrome with fevers and leukocytosis on admission secondary to # 2. 2. Large perianal abscess, status post incision and drainage, postoperative day #2 with wound cultu re growing Escherichia coli and Enterococcus species. 3. Bacteremia, likely secondary to above. 4. History of total knee replacement in 2017. PLAN: The patient remains stable. We are going to repeat blood cultures. We will continue him on Levaquin and add Zyvox for enterococcal coverage. Follow on final cultures. Continue wound packing as per surgical recommendations. Dictated By: URIEL URRUTIA VOLTAGE REGULATOR ASSEMBLER for SAULO REGAN MD NI/NTS Conf#: [id number] DID#: [id number] CC: TABITHA BEAN MD;*EndCC*
--- NOTE | 2017-01-22 15:14 | PN ---
DATE: 01/22/2017 SUBJECTIVE: The patient is sleeping, looks comfortable, no fevers. He developed allergic reaction to Flagyl yesterday. Started on Levaquin p.o. today. Rectal swab growing enterococcal species and E. coli. Blood culture growing gram-negative rods. ALLERGIES: PENICILLIN, REACTION UNKNOWN. PHYSICAL EXAMINATION: GENERAL: This is a well-developed, well-nourished elderly -[place] man who is awake, in no distress. HEENT: Head atraumatic, normocephalic. Sclerae anicteric. Buccal mucosa dry. NECK: Supple. CHEST: Rise symmetrical. Breath sounds diminished to bases. HEART: S1, S2. ABDOMEN: Soft, bowel tones present. EXTREMITIES: Without cyanosis. ASSESSMENT: 1. Systemic inflammatory response syndrome with fevers and leukocytosis on admission secondary to # 2. 2. Large perianal abscess, status post incision and drainage, postoperative day #2 with wound cultu re growing Escherichia coli and Enterococcus species. 3. Bacteremia, likely secondary to above. 4. History of total knee replacement in 2017. PLAN: The patient remains stable. We are going to repeat blood cultures. We will continue him on Levaquin and add Zyvox for enterococcal coverage. Follow on final cultures. Continue wound packing as per surgical recommendations. Dictated By: URIEL URRUTIA AUTOMATION MACHINE OPERATOR for SAULO REGAN MD NI/NTS Conf#: [id number] DID#: [id number] CC: TABITHA BEAN MD;*EndCC*
--- NOTE | 2017-01-22 15:14 | PN ---
DATE: 01/22/2017 SUBJECTIVE: The patient is sleeping, looks comfortable, no fevers. He developed allergic reaction to Flagyl yesterday. Started on Levaquin p.o. today. Rectal swab growing enterococcal species and E. coli. Blood culture growing gram-negative rods. ALLERGIES: PENICILLIN, REACTION UNKNOWN. PHYSICAL EXAMINATION: GENERAL: This is a well-developed, well-nourished elderly -[place] man who is awake, in no distress. HEENT: Head atraumatic, normocephalic. Sclerae anicteric. Buccal mucosa dry. NECK: Supple. CHEST: Rise symmetrical. Breath sounds diminished to bases. HEART: S1, S2. ABDOMEN: Soft, bowel tones present. EXTREMITIES: Without cyanosis. ASSESSMENT: 1. Systemic inflammatory response syndrome with fevers and leukocytosis on admission secondary to # 2. 2. Large perianal abscess, status post incision and drainage, postoperative day #2 with wound cultu re growing Escherichia coli and Enterococcus species. 3. Bacteremia, likely secondary to above. 4. History of total knee replacement in 2017. PLAN: The patient remains stable. We are going to repeat blood cultures. We will continue him on Levaquin and add Zyvox for enterococcal coverage. Follow on final cultures. Continue wound packing as per surgical recommendations. Dictated By: URIEL URRUTIA SECURITY RISK ANALYST for SAULO REGAN MD NI/NTS Conf#: [id number] DID#: [id number] CC: TABITHA BEAN MD;*EndCC*
[2017-01-22 19:37] VITALS: BP 146/90; RESP 18
[2017-01-22] MEDS: LEVOFLOXACIN 500MG/D5W (PMX) 100 ML IVPB SCH (20:14)
[2017-01-22] MEDS: ZYVOX 600 MG TAB PO SCH (21:26)
[2017-01-23] MEDS: HYDROCODONE/APAP (10/325) TAB PO PRN (01:09)
[2017-01-23 01:29] VITALS: BP 136/84; RESP 18
[2017-01-23] MEDS: LEVOFLOXACIN 500 MG TAB PO SCH (06:38)
[2017-01-23] MEDS: ENOXAPARIN 40 MG/0.4 ML SYG SC SCH (06:40)
[2017-01-23 07:47] VITALS: BP 145/89; RESP 18
[2017-01-23] MEDS: DOCUSATE SODIUM 100 MG CAP PO SCH ×2 (08:16→20:45)
[2017-01-23] MEDS: ZYVOX 600 MG TAB PO SCH ×3 (08:16→20:45)
[2017-01-23] MEDS: POLYETHYLENE GLYCOL 17 GM PACKET PO SCH (08:17)
[2017-01-23] MEDS: SENNA TAB PO SCH ×2 (08:17→20:45)
--- NOTE | 2017-01-23 09:03 | PN ---
Date/Time of Note Date/Time of Note DATE: 01/23/17 TIME: 09:01 Assessment/Plan VTE Prophylaxis VTE Prophylaxis Intervention: SCD's Lines/Catheters IV Catheter Type (from [facility]): Peripheral IV Urinary Cath still in place: No Assessment/Plan Chief Complaint/Hosp Course Summary Assessment and Plan: Assessment: Rectal bleeding/Rectal pain Secondary to perianal abscess S/p I/D perianal abscess Plan: Once discharged patient to f/u with GI as an out-patient For f/o colonoscopy in 3-6 months (hx of polyps last colon 2010) Patient seen in collaboration with Subjective: Course reviewed with nursing staff Patient interviewed and examined All labs, imaging and other results reviewed The patient s/p I/D of perianal abscess Saturday evening Feeling about the same, x1 episode of emesis this am Interventions from GI not needed at this time. Patient to follow-up in 3-6 months for follow-up colonoscopy. PHYSICAL EXAMINATION: GENERAL: Well developed, well nourished, alert & oriented x 3, in no acute distress SKIN: No lesions, no stigmata chronic liver disease, no evidence of bleeding diathesis, surgical incision perianal area LYMPHATIC: No palpable lymphadenopathy. HEAD: Normocephalic, atraumatic, no tenderness. EYES: Pupils equal reactive to light and accommodation, full extraocular movements, sclera clear, non-icteric, no discharge. EARS/NOSE AND THROAT: Ears normal, nose normal, oropharynx normal, oral membranes well hydrated without lesions. NECK: Supple, no masses, thyroid normal, JVP within normal limits, carotids normal without bruits. CHEST: Inspection within normal limits. CARDIOVASCULAR: Heart: Regular rate and rhythm, no murmurs, gallops or rubs. Peripheral pulses present within normal limits, no cyanosis, clubbing or edemas. No pulsatile abdominal mass RESPIRATORY: Lungs clear to auscultation and percussion, no wheezing, no rubs GASTROINTESTINAL AND LIVER: Abdomen: Soft, non tenderness, non-distended, no hernias, no masses, no organomegaly, no ascites, no guarding, no rebound tenderness, normoactive bowel sounds. Rectal: Deferred. GENITOURINARY: Male genitalia within normal limits. Problems: Exam/Review of Systems Vital Signs Vitals Vital Signs Date Time Temp Pulse Resp B/P Pulse Ox O2 Delivery O2 Flow Rate FiO2 01/23/17 07:47 97.0 55 18 145/89 99 01/23/17 01:02 2.0 01/21/17 07:45 Nasal Cannula Intake and Output 01/22/17 01/22/17 01/23/17 15:00 23:00 07:00 Intake Total 1160 ml 600 ml Balance 1160 ml 600 ml Results Result Diagram: 01/23/17 0441 01/23/17 0441 Results 24 hrs Laboratory Tests Test 01/23/17 04:41 White Blood Count 9.4 # Red Blood Count 5.35 Hemoglobin 13.3 L Hematocrit 41.5 L Mean Corpuscular Volume 77.6 L Mean Corpuscular Hemoglobin 24.9 L Mean Corpuscular Hemoglobin Concent 32.0 Red Cell Distribution Width 14.6 H Platelet Count 306 Mean Platelet Volume 12.0 H Neutrophils % 48.9 Lymphocytes % 37.9 Monocytes % 8.8 Eosinophils % 3.5 Basophils % 0.5 Nucleated Red Blood Cells % 0.0 Neutrophils # 4.6 Lymphocytes # 3.6 H Monocytes # 0.8 Eosinophils # 0.3 Basophils # 0.1 Nucleated Red Blood Cells # 0.0 Sodium Level 141 Potassium Level 4.0 Chloride Level 105 Carbon Dioxide Level 31 Anion Gap 9 Blood Urea Nitrogen 10 Creatinine 1.05 Glucose Level 95 Calcium Level 9.2 Medications Medications Current Medications Ondansetron HCl (Zofran Inj) 4 mg Q6H PRN IV NAUSEA AND/OR VOMITING Last administered on 01/21/17 17:39; Admin Dose 4 MG; Start 01/19/17 at 03:00 Acetaminophen (Tylenol Tab) 650 mg Q6H PRN PO PAIN LEVEL 1-3 OR FEVER; Start 01/19/17 at 03:00 Acetaminophen/ Hydrocodone Bitart ([place] (10/325)) 1 tab Q6H PRN PO PAIN Last administered on 01/23/17 01:09; Admin Dose 1 TAB; Start 01/19/17 at 03:00 Hydrocortisone (Anusol-Hc Supp) 25 mg BID PRN [place] HEMORROID PAIN/ITCHING; Start 01/19/17 at 03:00 Simethicone (Mylicon) 160 mg Q6H PRN PO DISTENSION/GAS/BLOATING Last administered on 01/19/17 05:39; Admin Dose 160 MG; Start 01/19/17 at 04:00 Polyethylene Glycol (Miralax) 17 gm DAILY PO Last administered on 01/23/17 08: 17; Admin Dose 17 GM; Start 01/20/17 at 12:30 Docusate Sodium (Colace) 200 mg BID PO Last administered on 01/23/17 08:16; Admin Dose 200 MG; Start 01/20/17 at 12:30 Senna (Senokot) 2 tab BID PO Last administered on 01/23/17 08:17; Admin Dose 2 TAB; Start 01/20/17 at 12:30 Acetaminophen/ Hydrocodone Bitart ([place] (5/325)) 1 tab Q6H PRN PO PAIN LEVEL 6 -10 Last administered on 01/21/17 21:47; Admin Dose 1 TAB; Start 01/20/17 at 19:00 Acetaminophen (Tylenol Tab) 650 mg Q6H PRN PO PAIN AND OR ELEVATED TEMP; Start 01/20/17 at 19:00 Ibuprofen (Motrin) 600 mg Q6H PRN PO PAIN LEVEL 1-5 Last administered on 07:55; Admin Dose 600 MG; Start 01/20/17 at 19:00 Ondansetron HCl (Zofran Inj) 4 mg Q6H PRN IV NAUSEA AND/OR VOMITING; Start at 19:00 Enoxaparin Sodium 40 mg 40 mg DAILY@07 SC Last administered on 01/23/17 06:40 ; Admin Dose 40 MG; Start 01/21/17 at 07:00 Levofloxacin/ Dextrose (Levaquin 500mg/ D5W 100 ml (Pmx)) 100 ml @ 100 mls/hr Q24H IVPB Last administered on 01/22/17 20:14; Admin Dose 100 MLS/HR; Start 01/20/17 at 20:00; Stop 01/23/17 at 19:59 Phenol (Cepastat Lozenge) 1 lozenge Q1H PRN [place] SORE THROAT Last administered on 01/22/17 04:44; Admin Dose 1 LOZENGE; Start 01/21/17 at 23:30 Levofloxacin (Levaquin) 500 mg DAILY@06 PO Last administered on 01/23/17 06:38 ; Admin Dose 500 MG; Start 01/23/17 at 06:00 Hydromorphone HCl (Dilaudid) 3 mg Q3H PRN IV PAIN LEVEL 8-10; Start 01/22/17 at 15:00 Linezolid (Zyvox) 600 mg BID PO Last administered on 01/23/17t 08:16; Admin Dose 600 MG; Start 01/22/17 at 21:00 YANI CHRISTENSEN Jan 23, 2017 09:03
[2017-01-23] MEDS: ONDANSETRON 4 MG INJ IV PRN (11:03)
--- NOTE | 2017-01-23 13:05 | CONS ---
Date/Time of Note Date/Time of Note DATE: 01/23/17 TIME: 13:00 Consult Date/Type/Reason Admit Date/Time Jan 19, 2017 at 00:40 Initial Consult Date 01/20/17 Type of Consultation: ID Objective Vital Signs Date Time Temp Pulse Resp B/P Pulse Ox O2 Delivery O2 Flow Rate FiO2 01/23/17 07:47 97.0 55 18 145/89 99 01/23/17 01:02 2.0 01/21/17 07:45 Nasal Cannula Intake and Output 01/22/17 01/22/17 01/23/17 15:00 23:00 07:00 Intake Total 1160 ml 600 ml Balance 1160 ml 600 ml Results/Medications Result Diagram: 01/23/17 0441 01/23/17 0441 Results 24 hrs Laboratory Tests Test 01/23/17 04:41 01/23/17 11:18 White Blood Count 9.4 # Red Blood Count 5.35 Hemoglobin 13.3 L Hematocrit 41.5 L Mean Corpuscular Volume 77.6 L Mean Corpuscular Hemoglobin 24.9 L Mean Corpuscular Hemoglobin Concent 32.0 Red Cell Distribution Width 14.6 H Platelet Count 306 Mean Platelet Volume 12.0 H Neutrophils % 48.9 Lymphocytes % 37.9 Monocytes % 8.8 Eosinophils % 3.5 Basophils % 0.5 Nucleated Red Blood Cells % 0.0 Neutrophils # 4.6 Lymphocytes # 3.6 H Monocytes # 0.8 Eosinophils # 0.3 Basophils # 0.1 Nucleated Red Blood Cells # 0.0 Sodium Level 141 Potassium Level 4.0 Chloride Level 105 Carbon Dioxide Level 31 Anion Gap 9 Blood Urea Nitrogen 10 Creatinine 1.05 Glucose Level 95 Calcium Level 9.2 Bedside Glucose 116 Medications Current Medications Ondansetron HCl (Zofran Inj) 4 mg Q6H PRN IV NAUSEA AND/OR VOMITING Last administered on 01/23/17 11:03; Admin Dose 4 MG; Start 01/19/17 at 03:00 Acetaminophen (Tylenol Tab) 650 mg Q6H PRN PO PAIN LEVEL 1-3 OR FEVER; Start 01/19/17 at 03:00 Acetaminophen/ Hydrocodone Bitart ([place] (10/325)) 1 tab Q6H PRN PO PAIN Last administered on 01/23/17 01:09; Admin Dose 1 TAB; Start 01/19/17 at 03:00 Hydrocortisone (Anusol-Hc Supp) 25 mg BID PRN [place] HEMORROID PAIN/ITCHING; Start 01/19/17 at 03:00 Simethicone (Mylicon) 160 mg Q6H PRN PO DISTENSION/GAS/BLOATING Last administered on 01/19/17 05:39; Admin Dose 160 MG; Start 01/19/17 at 04:00 Polyethylene Glycol (Miralax) 17 gm DAILY PO Last administered on 01/23/17 08: 17; Admin Dose 17 GM; Start 01/20/17 at 12:30 Docusate Sodium (Colace) 200 mg BID PO Last administered on 01/23/17 08:16; Admin Dose 200 MG; Start 01/20/17 at 12:30 Senna (Senokot) 2 tab BID PO Last administered on 01/23/17 08:17; Admin Dose 2 TAB; Start 01/20/17 at 12:30 Acetaminophen/ Hydrocodone Bitart ([place] (5/325)) 1 tab Q6H PRN PO PAIN LEVEL 6 -10 Last administered on 01/21/17 21:47; Admin Dose 1 TAB; Start 01/20/17 at 19:00 Acetaminophen (Tylenol Tab) 650 mg Q6H PRN PO PAIN AND OR ELEVATED TEMP; Start 01/20/17 at 19:00 Ibuprofen (Motrin) 600 mg Q6H PRN PO PAIN LEVEL 1-5 Last administered on 07:55; Admin Dose 600 MG; Start 01/20/17 at 19:00 Ondansetron HCl (Zofran Inj) 4 mg Q6H PRN IV NAUSEA AND/OR VOMITING; Start at 19:00 Enoxaparin Sodium 40 mg 40 mg DAILY@07 SC Last administered on 01/23/17 06:40 ; Admin Dose 40 MG; Start 01/21/17 at 07:00 Levofloxacin/ Dextrose (Levaquin 500mg/ D5W 100 ml (Pmx)) 100 ml @ 100 mls/hr Q24H IVPB Last administered on 01/22/17 20:14; Admin Dose 100 MLS/HR; Start 01/20/17 at 20:00; Stop 01/23/17 at 19:59 Phenol (Cepastat Lozenge) 1 lozenge Q1H PRN [place] SORE THROAT Last administered on 01/22/17 04:44; Admin Dose 1 LOZENGE; Start 01/21/17 at 23:30 Levofloxacin (Levaquin) 500 mg DAILY@06 PO Last administered on 01/23/17 06:38 ; Admin Dose 500 MG; Start 01/23/17 at 06:00 Hydromorphone HCl (Dilaudid) 3 mg Q3H PRN IV PAIN LEVEL 8-10 Last administered on 01/23/17 11:34; Admin Dose 3 MG; Start 01/22/17 at 15:00 Assessment/Plan Chief Complaint/Hosp Course SUBJECTIVE: The patient is awake, c/o pain, no fevers, looks comfortable, no fevers. Micro: Rectal swab growing enterococcal species, Strep, and E. coli. Blood culture growing gram-negative rods. ALLERGIES: PENICILLIN, Flagyl Abx: Levaquin, Zyvox PHYSICAL EXAMINATION: GENERAL: This is a well-developed, well-nourished elderly -[place] man who is awake, in no distress. HEENT: Head atraumatic, normocephalic. Sclerae anicteric. Buccal mucosa dry. NECK: Supple. CHEST: Rise symmetrical. Breath sounds diminished to bases. HEART: S1, S2. ABDOMEN: Soft, bowel tones present. EXTREMITIES: Without cyanosis. ASSESSMENT: 1. Systemic inflammatory response syndrome with fevers and leukocytosis on admission secondary to #2. 2. Large perianal abscess, status post incision and drainage, postoperative day #2 with wound culture growing Escherichia coli and Enterococcus species. 3. Bacteremia, likely secondary to above. 4. History of total knee replacement in 2017. PLAN: The patient remains stable. Continue abx, local wound care, f/u final cultures. DW staff Problems: URIEL URRUTIA NP Jan 23, 2017 13:05
--- NOTE | 2017-01-23 15:12 | PN ---
Date/Time of Note Date/Time of Note DATE: 01/23/17 TIME: 15:11 Assessment/Plan VTE Prophylaxis VTE Prophylaxis Intervention: SCD's Lines/Catheters IV Catheter Type (from Nrs): Peripheral IV Urinary Cath still in place: No Assessment/Plan Assessment/Plan 61 yo M admitted for rectal pain/bleeding found to have large perirectal abscess for which he underwent I&D 01.20. #perirectal abscess -cultures in process. cont empiric levo will complete 7 days fluoroquinolone given resultant bacteremia #h/o colon polyps will need outpatient PCP/GI follow up for surveillance endoscopy likely dc in 1-2 days if OK with general surgery Subjective 24 Hr Interval Summary Free Text/Dictation nauseated this AM Exam/Review of Systems Vital Signs Vitals Vital Signs Date Time Temp Pulse Resp B/P Pulse Ox O2 Delivery O2 Flow Rate FiO2 01/23/17 07:47 97.0 55 18 145/89 99 01/23/17 01:02 2.0 01/21/17 07:45 Nasal Cannula Intake and Output 01/22/17 01/22/17 01/23/17 15:00 23:00 07:00 Intake Total 1160 ml 600 ml Balance 1160 ml 600 ml Exam uncomfortable no mrg lungs clear no rashes no edema Results Result Diagram: 01/23/17 0441 01/23/17 0441 Results 24 hrs Laboratory Tests Test 01/23/17 04:41 01/23/17 11:18 White Blood Count 9.4 # Red Blood Count 5.35 Hemoglobin 13.3 L Hematocrit 41.5 L Mean Corpuscular Volume 77.6 L Mean Corpuscular Hemoglobin 24.9 L Mean Corpuscular Hemoglobin Concent 32.0 Red Cell Distribution Width 14.6 H Platelet Count 306 Mean Platelet Volume 12.0 H Neutrophils % 48.9 Lymphocytes % 37.9 Monocytes % 8.8 Eosinophils % 3.5 Basophils % 0.5 Nucleated Red Blood Cells % 0.0 Neutrophils # 4.6 Lymphocytes # 3.6 H Monocytes # 0.8 Eosinophils # 0.3 Basophils # 0.1 Nucleated Red Blood Cells # 0.0 Sodium Level 141 Potassium Level 4.0 Chloride Level 105 Carbon Dioxide Level 31 Anion Gap 9 Blood Urea Nitrogen 10 Creatinine 1.05 Glucose Level 95 Calcium Level 9.2 Bedside Glucose 116 Medications Medications Current Medications Ondansetron HCl (Zofran Inj) 4 mg Q6H PRN IV NAUSEA AND/OR VOMITING Last administered on 01/23/17 11:03; Admin Dose 4 MG; Start 01/19/17 at 03:00 Acetaminophen (Tylenol Tab) 650 mg Q6H PRN PO PAIN LEVEL 1-3 OR FEVER; Start 01/19/17 at 03:00 Acetaminophen/ Hydrocodone Bitart ([place] (10/325)) 1 tab Q6H PRN PO PAIN Last administered on 01/23/17 01:09; Admin Dose 1 TAB; Start 01/19/17 at 03:00 Hydrocortisone (Anusol-Hc Supp) 25 mg BID PRN [place] HEMORROID PAIN/ITCHING; Start 01/19/17 at 03:00 Simethicone (Mylicon) 160 mg Q6H PRN PO DISTENSION/GAS/BLOATING Last administered on 01/19/17 05:39; Admin Dose 160 MG; Start 01/19/17 at 04:00 Polyethylene Glycol (Miralax) 17 gm DAILY PO Last administered on 01/23/17 08: 17; Admin Dose 17 GM; Start 01/20/17 at 12:30 Docusate Sodium (Colace) 200 mg BID PO Last administered on 01/23/17 08:16; Admin Dose 200 MG; Start 01/20/17 at 12:30 Senna (Senokot) 2 tab BID PO Last administered on 01/23/17 08:17; Admin Dose 2 TAB; Start 01/20/17 at 12:30 Acetaminophen/ Hydrocodone Bitart ([place] (5/325)) 1 tab Q6H PRN PO PAIN LEVEL 6 -10 Last administered on 01/21/17 21:47; Admin Dose 1 TAB; Start 01/20/17 at 19:00 Acetaminophen (Tylenol Tab) 650 mg Q6H PRN PO PAIN AND OR ELEVATED TEMP; Start 01/20/17 at 19:00 Ibuprofen (Motrin) 600 mg Q6H PRN PO PAIN LEVEL 1-5 Last administered on 07:55; Admin Dose 600 MG; Start 01/20/17 at 19:00 Ondansetron HCl (Zofran Inj) 4 mg Q6H PRN IV NAUSEA AND/OR VOMITING; Start at 19:00 Enoxaparin Sodium 40 mg 40 mg DAILY@07 SC Last administered on 01/23/17 06:40 ; Admin Dose 40 MG; Start 01/21/17 at 07:00 Levofloxacin/ Dextrose (Levaquin 500mg/ D5W 100 ml (Pmx)) 100 ml @ 100 mls/hr Q24H IVPB Last administered on 01/22/17 20:14; Admin Dose 100 MLS/HR; Start 01/20/17 at 20:00; Stop 01/23/17 at 19:59 Phenol (Cepastat Lozenge) 1 lozenge Q1H PRN MT SORE THROAT Last administered on 01/22/17 04:44; Admin Dose 1 LOZENGE; Start 01/21/17 at 23:30 Levofloxacin (Levaquin) 500 mg DAILY@06 PO Last administered on 01/23/17 06:38 ; Admin Dose 500 MG; Start 01/23/17 at 06:00 Hydromorphone HCl (Dilaudid) 3 mg Q3H PRN IV PAIN LEVEL 8-10 Last administered on 01/23/17 11:34; Admin Dose 3 MG; Start 01/22/17 at 15:00 Linezolid (Zyvox) 600 mg BID PO ; Start 01/23/17 at 14:00 DIPAK PRITCHETT MD Jan 23, 2017 15:12
[2017-01-23 19:25] VITALS: BP 137/88; RESP 18
[2017-01-24 02:08] VITALS: BP 138/81; RESP 18
[2017-01-24] MEDS: HYDROCODONE/APAP (10/325) TAB PO PRN (03:41)
[2017-01-24] MEDS: LEVOFLOXACIN 500 MG TAB PO SCH (06:10)
[2017-01-24] MEDS: ENOXAPARIN 40 MG/0.4 ML SYG SC SCH (06:12)
[2017-01-24 08:07] VITALS: BP 105/64; RESP 18
[2017-01-24] MEDS: POLYETHYLENE GLYCOL 17 GM PACKET PO SCH (08:35)
[2017-01-24] MEDS: DOCUSATE SODIUM 100 MG CAP PO SCH ×2 (08:36→21:00)
[2017-01-24] MEDS: ZYVOX 600 MG TAB PO SCH (08:36)
[2017-01-24] MEDS: SENNA TAB PO SCH ×2 (08:36→21:00)
[2017-01-24] MEDS: ONDANSETRON 4 MG INJ IV PRN (10:38)
--- NOTE | 2017-01-24 11:38 | PN ---
Date/Time of Note Date/Time of Note DATE: 01/24/17 TIME: 11:37 Assessment/Plan VTE Prophylaxis VTE Prophylaxis Intervention: SCD's Lines/Catheters IV Catheter Type (from Nrs): [place] Urinary Cath still in place: No Assessment/Plan Assessment/Plan 61 yo M admitted for rectal pain/bleeding found to have large perirectal abscess for which he underwent I&D 10. #perirectal abscess -cultures in process. cont empiric levo will complete 7 days fluoroquinolone given resultant bacteremia -given persistent pain will repeat imaging to make sure abscess has not recurred #h/o colon polyps will need outpatient PCP/GI follow up for surveillance endoscopy Subjective 24 Hr Interval Summary Free Text/Dictation still with a great deal of perirectal pain Exam/Review of Systems Vital Signs Vitals Vital Signs Date Time Temp Pulse Resp B/P Pulse Ox O2 Delivery O2 Flow Rate FiO2 01/24/17 08:07 98.5 57 18 105/64 100 01/23/17 18:22 2.0 01/21/17 07:45 Nasal Cannula Intake and Output 01/23/17 01/23/17 01/24/17 15:00 23:00 07:00 Intake Total 840 ml 800 ml Output Total 300 ml Balance 540 ml 800 ml Exam uncomfortable no mrg lungs clear abd soft no rashes Results Result Diagram: 01/24/1744001/24/17 0441 Results 24 hrs Laboratory Tests Test 01/24/17 04:41 White Blood Count 8.9 Red Blood Count 5.23 Hemoglobin 13.1 L Hematocrit 40.4 L Mean Corpuscular Volume 77.2 L Mean Corpuscular Hemoglobin 25.0 L Mean Corpuscular Hemoglobin Concent 32.4 Red Cell Distribution Width 14.6 H Platelet Count 320 Mean Platelet Volume 12.0 H Neutrophils % 54.2 Lymphocytes % 33.0 Monocytes % 8.9 Eosinophils % 3.1 Basophils % 0.5 Nucleated Red Blood Cells % 0.0 Neutrophils # 4.8 Lymphocytes # 2.9 Monocytes # 0.8 Eosinophils # 0.3 Basophils # 0.0 Nucleated Red Blood Cells # 0.0 Sodium Level 138 Potassium Level 3.4 L Chloride Level 101 Carbon Dioxide Level 27 Anion Gap 13 Blood Urea Nitrogen 10 Creatinine 1.05 Glucose Level 141 # Calcium Level 9.2 Medications Medications Current Medications Ondansetron HCl (Zofran Inj) 4 mg Q6H PRN IV NAUSEA AND/OR VOMITING Last administered on 01/24/17 10:38; Admin Dose 4 MG; Start 01/19/17 at 03:00 Acetaminophen (Tylenol Tab) 650 mg Q6H PRN PO PAIN LEVEL 1-3 OR FEVER; Start 01/19/17 at 03:00 Acetaminophen/ Hydrocodone Bitart ([place] (10/325)) 1 tab Q6H PRN PO PAIN Last administered on 01/24/17 03:41; Admin Dose 1 TAB; Start 01/19/17 at 03:00 Hydrocortisone (Anusol-Hc Supp) 25 mg BID PRN [place] HEMORROID PAIN/ITCHING; Start 01/19/17 at 03:00 Simethicone (Mylicon) 160 mg Q6H PRN PO DISTENSION/GAS/BLOATING Last administered on 01/19/17 05:39; Admin Dose 160 MG; Start 01/19/17 at 04:00 Polyethylene Glycol (Miralax) 17 gm DAILY PO Last administered on 01/24/17 08: 35; Admin Dose 17 GM; Start 01/20/17 at 12:30 Docusate Sodium (Colace) 200 mg BID PO Last administered on 01/24/17 08:36; Admin Dose 200 MG; Start 01/20/17 at 12:30 Senna (Senokot) 2 tab BID PO Last administered on 01/24/17 08:36; Admin Dose 2 TAB; Start 01/20/17 at 12:30 Acetaminophen/ Hydrocodone Bitart ([place] (5/325)) 1 tab Q6H PRN PO PAIN LEVEL 6 -10 Last administered on 01/21/17 21:47; Admin Dose 1 TAB; Start 01/20/17 at 19:00 Acetaminophen (Tylenol Tab) 650 mg Q6H PRN PO PAIN AND OR ELEVATED TEMP; Start 01/20/17 at 19:00 Ibuprofen (Motrin) 600 mg Q6H PRN PO PAIN LEVEL 1-5 Last administered on 07:55; Admin Dose 600 MG; Start 01/20/17 at 19:00 Ondansetron HCl (Zofran Inj) 4 mg Q6H PRN IV NAUSEA AND/OR VOMITING; Start at 19:00 Enoxaparin Sodium (Lovenox) 40 mg DAILY@07 SC Last administered on 01/24/17 06 :12; Admin Dose 40 MG; Start 01/21/17 at 07:00 Phenol (Cepastat Lozenge) 1 lozenge Q1H PRN MT SORE THROAT Last administered on 01/22/17 04:44; Admin Dose 1 LOZENGE; Start 01/21/17 at 23:30 Levofloxacin (Levaquin) 500 mg DAILY@06 PO Last administered on 01/24/17 06:10 ; Admin Dose 500 MG; Start 01/23/17 at 06:00; Stop 01/27/17 at 05:59 Hydromorphone HCl (Dilaudid) 3 mg Q3H PRN IV PAIN LEVEL 8-10 Last administered on 01/23/17 11:34; Admin Dose 3 MG; Start 01/22/17 at 15:00 DIPAK PRITCHETT MD Jan 24, 2017 11:38
--- NOTE | 2017-01-24 16:58 | RADRPT ---
PROCEDURE: MR Pelvis. CLINICAL INDICATION: Perianal fluid collection/abscess status post drainage. Persistent pain. TECHNIQUE: Multiplanar MR imaging of the pelvis was performed prior to and following the intraveno us administration of 10 cc of Magnevist. COMPARISON: MRI pelvis 01/20/2017. FINDINGS: The large perianal abscess seen on prior examination has near completely resolved. The abscess cavit y has collapsed with trace residual internal fluid measuring approximately 4 mm in thickness. There is mild hyper enhancement of the collapsed abscess wall. The ischioanal and ischiorectal fossa are c lear. The bladder is collapsed with mild concentric wall thickening. Nodular enlargement of the central po rtion of the prostate gland is observed suggesting the presence of BPH. The seminal vesicles are unr emarkable. There is no free pelvic fluid. There is no pelvic sidewall or inguinal lymphadenopathy. The small and large intestines within the pelvis are unremarkable. Right hip arthroplasty hardware is in place. Supporting soft tissues of the pelvis are unremarkable. IMPRESSION: Near complete resolution of a large perianal abscess. The abscess cavity is now collapsed with trace residual internal fluid measuring approximately 4 mm in thickness. Central nodular enlargement prostate gland suggesting sequelae of BPH. Correlate with PSA. RPTAT: [id number] .Romana Winters MD, MD Date Time Electronically viewed and signed by .Romana Winters MD, MD on 01/24/2017 16:57 .T/
[2017-01-24 19:40] VITALS: BP 154/98; RESP 18
[2017-01-24] MEDS: LINEZOLID 600 MG/D5W (PMX) 300 ML IVPB SCH (20:53)
[2017-01-25] MEDS: ONDANSETRON 4 MG INJ IV PRN (00:17)
[2017-01-25] MEDS ORDERED: LORAZEPAM 2 MG INJ IV ONE (00:30)
[2017-01-25] MEDS ORDERED: METOCLOPRAMIDE 10 MG INJ IV PRN (00:30)
[2017-01-25] MEDS: SOD CHLORIDE 0.9% 1,000 ML IV SCH ×2 (00:39→13:56)
--- NOTE | 2017-01-25 01:25 | RADRPT ---
PROCEDURE: XR Abdomen. CLINICAL INDICATION: Abdominal pain. TECHNIQUE: 2 frontal views of the abdomen. COMPARISON: None. FINDINGS: The bowel gas pattern is unremarkable. There is no bowel obstruction or free air. There is no orga nomegaly. There is no abnormal calcification. The patient is status post total right hip arthropla sty which appears radiographically intact. There is mild to moderate narrowing of the left hip joint space. IMPRESSION: Unremarkable bowel gas pattern. Status post total right hip arthroplasty. Mild to moderate left hip osteoarthritis. .Skyler Martell MD, MD Date Time Electronically viewed and signed by .Skyler Martell MD, on 01/25/2017 01:25 .T/
[2017-01-25 02:08] VITALS: BP 147/92; RESP 18
--- NOTE | 2017-01-25 05:30 | PN ---
DATE: 01/24/2017 SUBJECTIVE: Patient is awake, does not feel good, complaining of nausea and vomiting as well as howard ble to have a bowel movement. He has been afebrile. WBC today 8.9, platelets 320, no shift, no band s. BUN 10, creatinine 1.05. MICROBIOLOGY: Blood cultures have been negative. Rectal wound culture grew E. coli, alpha hemolyti c strep and Enterococcus species. Blood culture also grew E. coli susceptible to Levaquin. Repeat blood cultures preliminary negative. ANTIMICROBIALS: The patient is on Zyvox and Levaquin. PHYSICAL EXAMINATION: GENERAL: This is an elderly, well-developed -[place] man who is awake, in no distress. HEENT: Head atraumatic, normocephalic. Sclerae anicteric. Buccal mucosa dry. NECK: Supple. CHEST: Rise symmetrical. Breath sounds diminished to bases. HEART: S1, S2. ABDOMEN: Soft, bowel tones present. EXTREMITIES: Without cyanosis. ASSESSMENT: 1. Systemic inflammatory response syndrome with fevers and leukocytosis on admission. 2. Escherichia coli bacteremia secondary to #3. 3. Large perianal abscess status post drainage with wound culture growing E. coli, enterococcus spe cies and alpha hemolytic strep species. 4. Constipation. 5. Nausea and vomiting. 6. ALLERGY TO PENICILLIN. PLAN: Patient is clinically unchanged. No fevers. We are going to change antibiotics to IV as pat ient is having nausea and vomiting. We will await for repeat CT of the abdomen and continue present care, local wound care as per surgical recommendations. Dictated By: URIEL URRUTIA AIR BRUSH ARTIST for SAULO MCCRACKEN/OLIVER Conf#: [id number] DID#: [id number]
--- NOTE | 2017-01-25 05:30 | PN ---
DATE: 01/24/2017 SUBJECTIVE: Patient is awake, does not feel good, complaining of nausea and vomiting as well as howard ble to have a bowel movement. He has been afebrile. WBC today 8.9, platelets 320, no shift, no band s. BUN 10, creatinine 1.05. MICROBIOLOGY: Blood cultures have been negative. Rectal wound culture grew E. coli, alpha hemolyti c strep and Enterococcus species. Blood culture also grew E. coli susceptible to Levaquin. Repeat blood cultures preliminary negative. ANTIMICROBIALS: The patient is on Zyvox and Levaquin. PHYSICAL EXAMINATION: GENERAL: This is an elderly, well-developed -[place] man who is awake, in no distress. HEENT: Head atraumatic, normocephalic. Sclerae anicteric. Buccal mucosa dry. NECK: Supple. CHEST: Rise symmetrical. Breath sounds diminished to bases. HEART: S1, S2. ABDOMEN: Soft, bowel tones present. EXTREMITIES: Without cyanosis. ASSESSMENT: 1. Systemic inflammatory response syndrome with fevers and leukocytosis on admission. 2. Escherichia coli bacteremia secondary to #3. 3. Large perianal abscess status post drainage with wound culture growing E. coli, enterococcus spe cies and alpha hemolytic strep species. 4. Constipation. 5. Nausea and vomiting. 6. ALLERGY TO PENICILLIN. PLAN: Patient is clinically unchanged. No fevers. We are going to change antibiotics to IV as pat ient is having nausea and vomiting. We will await for repeat CT of the abdomen and continue present care, local wound care as per surgical recommendations. Dictated By: URIEL URRUTIA CHILD DEVELOPMENT PROFESSOR for [facility] MCCRACKEN/OLIVER Conf#: [id number] DID#: [id number]
--- NOTE | 2017-01-25 05:30 | PN ---
DATE: 01/24/2017 SUBJECTIVE: Patient is awake, does not feel good, complaining of nausea and vomiting as well as howard ble to have a bowel movement. He has been afebrile. WBC today 8.9, platelets 320, no shift, no band s. BUN 10, creatinine 1.05. MICROBIOLOGY: Blood cultures have been negative. Rectal wound culture grew E. coli, alpha hemolyti c strep and Enterococcus species. Blood culture also grew E. coli susceptible to Levaquin. Repeat blood cultures preliminary negative. ANTIMICROBIALS: The patient is on Zyvox and Levaquin. PHYSICAL EXAMINATION: GENERAL: This is an elderly, well-developed -[place] man who is awake, in no distress. HEENT: Head atraumatic, normocephalic. Sclerae anicteric. Buccal mucosa dry. NECK: Supple. CHEST: Rise symmetrical. Breath sounds diminished to bases. HEART: S1, S2. ABDOMEN: Soft, bowel tones present. EXTREMITIES: Without cyanosis. ASSESSMENT: 1. Systemic inflammatory response syndrome with fevers and leukocytosis on admission. 2. Escherichia coli bacteremia secondary to #3. 3. Large perianal abscess status post drainage with wound culture growing E. coli, enterococcus spe cies and alpha hemolytic strep species. 4. Constipation. 5. Nausea and vomiting. 6. ALLERGY TO PENICILLIN. PLAN: Patient is clinically unchanged. No fevers. We are going to change antibiotics to IV as pat ient is having nausea and vomiting. We will await for repeat CT of the abdomen and continue present care, local wound care as per surgical recommendations. Dictated By: URIEL URRUTIA EMBROIDERY SPECIALIST for [facility] MCCRACKEN/OLIVER Conf#: [id number] DID#: [id number]
[2017-01-25] MEDS: ENOXAPARIN 40 MG/0.4 ML SYG SC SCH (07:00)
[2017-01-25 07:14] VITALS: BP 121/83; RESP 18
[2017-01-25] MEDS: DOCUSATE SODIUM 100 MG CAP PO SCH (08:38)
[2017-01-25] MEDS: POLYETHYLENE GLYCOL 17 GM PACKET PO SCH (08:38)
[2017-01-25] MEDS: SENNA TAB PO SCH (08:39)
[2017-01-25] MEDS: LINEZOLID 600 MG/D5W (PMX) 300 ML IVPB SCH (09:00)
[2017-01-25] MEDS ORDERED: LEVOFLOXACIN 500MG/D5W (PMX) 100 ML IVPB SCH (09:00)
--- NOTE | 2017-01-25 13:26 | CONS ---
Date/Time of Note Date/Time of Note DATE: 01/25/17 TIME: 13:24 Consult Date/Type/Reason Admit Date/Time Jan 19, 2017 at 00:40 Initial Consult Date 01/20/17 Type of Consultation: ID Objective Vital Signs Date Time Temp Pulse Resp B/P Pulse Ox O2 Delivery O2 Flow Rate FiO2 01/25/17 07:14 98.6 67 18 121/83 100 01/25/17 06:02 2.0 01/21/17 07:45 Nasal Cannula Intake and Output 01/24/17 01/24/17 01/25/17 15:00 23:00 07:00 Intake Total 1800 ml 600 ml Output Total 1800 ml 100 ml Balance 0 ml 500 ml Results/Medications Result Diagram: 01/25/17 0431 01/24/17 0441 Results 24 hrs Laboratory Tests Test 01/25/17 04:30 01/25/17 04:31 Prostate Specific Antigen 4.4 H White Blood Count 10.3 Red Blood Count 5.76 Hemoglobin 14.4 Hematocrit 44.2 Mean Corpuscular Volume 76.7 L Mean Corpuscular Hemoglobin 25.0 L Mean Corpuscular Hemoglobin Concent 32.6 Red Cell Distribution Width 14.5 Platelet Count 342 Mean Platelet Volume 11.5 H Neutrophils % 53.9 Lymphocytes % 33.7 Monocytes % 9.8 Eosinophils % 1.7 Basophils % 0.5 Nucleated Red Blood Cells % 0.0 Neutrophils # 5.6 Lymphocytes # 3.5 H Monocytes # 1.0 H Eosinophils # 0.2 Basophils # 0.1 Nucleated Red Blood Cells # 0.0 Medications Current Medications Ondansetron HCl (Zofran Inj) 4 mg Q6H PRN IV NAUSEA AND/OR VOMITING Last administered on 01/25/17 00:17; Admin Dose 4 MG; Start 01/19/17 at 03:00 Acetaminophen (Tylenol Tab) 650 mg Q6H PRN PO PAIN LEVEL 1-3 OR FEVER; Start 01/19/17 at 03:00 Acetaminophen/ Hydrocodone Bitart ([place] (10/325)) 1 tab Q6H PRN PO PAIN Last administered on 01/24/17 03:41; Admin Dose 1 TAB; Start 01/19/17 at 03:00 Hydrocortisone (Anusol-Hc Supp) 25 mg BID PRN [place] HEMORROID PAIN/ITCHING; Start 01/19/17 at 03:00 Simethicone (Mylicon) 160 mg Q6H PRN PO DISTENSION/GAS/BLOATING Last administered on 01/19/17 05:39; Admin Dose 160 MG; Start 01/19/17 at 04:00 Polyethylene Glycol (Miralax) 17 gm DAILY PO Last administered on 01/24/17 08: 35; Admin Dose 17 GM; Start 01/20/17 at 12:30 Docusate Sodium (Colace) 200 mg BID PO Last administered on 01/24/17 08:36; Admin Dose 200 MG; Start 01/20/17 at 12:30 Senna (Senokot) 2 tab BID PO Last administered on 01/24/17 08:36; Admin Dose 2 TAB; Start 01/20/17 at 12:30 Acetaminophen/ Hydrocodone Bitart ([place] (5/325)) 1 tab Q6H PRN PO PAIN LEVEL 6 -10 Last administered on 01/21/17 21:47; Admin Dose 1 TAB; Start 01/20/17 at 19:00 Acetaminophen (Tylenol Tab) 650 mg Q6H PRN PO PAIN AND OR ELEVATED TEMP; Start 01/20/17 at 19:00 Ibuprofen (Motrin) 600 mg Q6H PRN PO PAIN LEVEL 1-5 Last administered on 07:55; Admin Dose 600 MG; Start 01/20/17 at 19:00 Ondansetron HCl (Zofran Inj) 4 mg Q6H PRN IV NAUSEA AND/OR VOMITING; Start at 19:00 Enoxaparin Sodium (Lovenox) 40 mg DAILY@07 SC Last administered on 01/24/17 06 :12; Admin Dose 40 MG; Start 01/21/17 at 07:00 Phenol (Cepastat Lozenge) 1 lozenge Q1H PRN [place] SORE THROAT Last administered on 01/22/17 04:44; Admin Dose 1 LOZENGE; Start 01/21/17 at 23:30 Hydromorphone HCl (Dilaudid) 3 mg Q3H PRN IV PAIN LEVEL 8-10 Last administered on 01/23/17 11:34; Admin Dose 3 MG; Start 01/22/17 at 15:00 Metoclopramide HCl 10 mg 10 mg Q6 PRN IV NAUSEA; Start 01/25/17 at 00:30 Sodium Chloride (NS) 1,000 ml @ 70 mls/hr [id number] IV Last administered on 01/25t 00:39; Admin Dose 70 MLS/HR; Start 01/25/17 at 00:30 Levofloxacin (Levaquin) 500 mg DAILY@06 PO ; Start 01/25/17 at 18:00 Assessment/Plan Chief Complaint/Hosp Course SUBJECTIVE: The patient is awake, feels much better, s/p BM, no fevers. Micro: Rectal swab growing enterococcal species, Strep, and E. coli. Blood culture growing gram-negative rods. ALLERGIES: PENICILLIN, Flagyl Abx: Levaquin, Zyvox PHYSICAL EXAMINATION: GENERAL: This is a well-developed, well-nourished elderly -[place] man who is awake, in no distress. HEENT: Head atraumatic, normocephalic. Sclerae anicteric. Buccal mucosa dry. NECK: Supple. CHEST: Rise symmetrical. Breath sounds diminished to bases. HEART: S1, S2. ABDOMEN: Soft, bowel tones present. EXTREMITIES: Without cyanosis. ASSESSMENT: 1. Systemic inflammatory response syndrome with fevers and leukocytosis on admission secondary to #2. 2. Large perianal abscess, status post incision and drainage, repeat MRI with complete resolution 3. Bacteremia, likely secondary to above. 4. History of total knee replacement in 2017. PLAN: Doing better, anticipate dc on oral Levaquin to complete 2 weeks treatment. Continue local wound care per surgical rec-s [facility] staff/pt Problems: URIEL URRUTIA NP Jan 25, 2017 13:26
--- NOTE | 2017-01-25 13:26 | CONS ---
Date/Time of Note Date/Time of Note DATE: 01/25/17 TIME: 13:24 Consult Date/Type/Reason Admit Date/Time Jan 19, 2017 at 00:40 Initial Consult Date 01/20/17 Type of Consultation: ID Objective Vital Signs Date Time Temp Pulse Resp B/P Pulse Ox O2 Delivery O2 Flow Rate FiO2 01/25/17 07:14 98.6 67 18 121/83 100 01/25/17 06:02 2.0 01/21/17 07:45 Nasal Cannula Intake and Output 01/24/17 01/24/17 01/25/17 15:00 23:00 07:00 Intake Total 1800 ml 600 ml Output Total 1800 ml 100 ml Balance 0 ml 500 ml Results/Medications Result Diagram: 01/25/17 0431 01/24/17 0441 Results 24 hrs Laboratory Tests Test 01/25/17 04:30 01/25/17 04:31 Prostate Specific Antigen 4.4 H White Blood Count 10.3 Red Blood Count 5.76 Hemoglobin 14.4 Hematocrit 44.2 Mean Corpuscular Volume 76.7 L Mean Corpuscular Hemoglobin 25.0 L Mean Corpuscular Hemoglobin Concent 32.6 Red Cell Distribution Width 14.5 Platelet Count 342 Mean Platelet Volume 11.5 H Neutrophils % 53.9 Lymphocytes % 33.7 Monocytes % 9.8 Eosinophils % 1.7 Basophils % 0.5 Nucleated Red Blood Cells % 0.0 Neutrophils # 5.6 Lymphocytes # 3.5 H Monocytes # 1.0 H Eosinophils # 0.2 Basophils # 0.1 Nucleated Red Blood Cells # 0.0 Medications Current Medications Ondansetron HCl (Zofran Inj) 4 mg Q6H PRN IV NAUSEA AND/OR VOMITING Last administered on 01/25/17 00:17; Admin Dose 4 MG; Start 01/19/17 at 03:00 Acetaminophen (Tylenol Tab) 650 mg Q6H PRN PO PAIN LEVEL 1-3 OR FEVER; Start 01/19/17 at 03:00 Acetaminophen/ Hydrocodone Bitart ([place] (10/325)) 1 tab Q6H PRN PO PAIN Last administered on 01/24/17 03:41; Admin Dose 1 TAB; Start 01/19/17 at 03:00 Hydrocortisone (Anusol-Hc Supp) [address] HEMORROID PAIN/ITCHING; Start 01/19/17 at 03:00 Simethicone (Mylicon) 160 mg Q6H PRN PO DISTENSION/GAS/BLOATING Last administered on 01/19/17 05:39; Admin Dose 160 MG; Start 01/19/17 at 04:00 Polyethylene Glycol (Miralax) 17 gm DAILY PO Last administered on 01/24/17 08: 35; Admin Dose 17 GM; Start 01/20/17 at 12:30 Docusate Sodium (Colace) 200 mg BID PO Last administered on 01/24/17 08:36; Admin Dose 200 MG; Start 01/20/17 at 12:30 Senna (Senokot) 2 tab BID PO Last administered on 01/24/17 08:36; Admin Dose 2 TAB; Start 01/20/17 at 12:30 Acetaminophen/ Hydrocodone Bitart ([place] (5/325)) 1 tab Q6H PRN PO PAIN LEVEL 6 -10 Last administered on 01/21/17 21:47; Admin Dose 1 TAB; Start 01/20/17 at 19:00 Acetaminophen (Tylenol Tab) 650 mg Q6H PRN PO PAIN AND OR ELEVATED TEMP; Start 01/20/17 at 19:00 Ibuprofen (Motrin) 600 mg Q6H PRN PO PAIN LEVEL 1-5 Last administered on 07:55; Admin Dose 600 MG; Start 01/20/17 at 19:00 Ondansetron HCl (Zofran Inj) 4 mg Q6H PRN IV NAUSEA AND/OR VOMITING; Start at 19:00 Enoxaparin Sodium (Lovenox) 40 mg DAILY@07 SC Last administered on 01/24/17 06 :12; Admin Dose 40 MG; Start 01/21/17 at 07:00 Phenol (Cepastat Lozenge) 1 lozenge Q1H PRN [place] SORE THROAT Last administered on 01/22/17 04:44; Admin Dose 1 LOZENGE; Start 01/21/17 at 23:30 Hydromorphone HCl (Dilaudid) 3 mg Q3H PRN IV PAIN LEVEL 8-10 Last administered on 01/23/17 11:34; Admin Dose 3 MG; Start 01/22/17 at 15:00 Metoclopramide HCl 10 mg 10 mg Q6 PRN IV NAUSEA; Start 01/25/17 at 00:30 Sodium Chloride (NS) 1,000 ml @ 70 mls/hr [id number] IV Last administered on 01/25t 00:39; Admin Dose 70 MLS/HR; Start 01/25/17 at 00:30 Levofloxacin (Levaquin) 500 mg DAILY@06 PO ; Start 01/25/17 at 18:00 Assessment/Plan Chief Complaint/Hosp Course SUBJECTIVE: The patient is awake, feels much better, s/p BM, no fevers. Micro: Rectal swab growing enterococcal species, Strep, and E. coli. Blood culture growing gram-negative rods. ALLERGIES: PENICILLIN, Flagyl Abx: Levaquin, Zyvox PHYSICAL EXAMINATION: GENERAL: This is a well-developed, well-nourished elderly -[place] man who is awake, in no distress. HEENT: Head atraumatic, normocephalic. Sclerae anicteric. Buccal mucosa dry. NECK: Supple. CHEST: Rise symmetrical. Breath sounds diminished to bases. HEART: S1, S2. ABDOMEN: Soft, bowel tones present. EXTREMITIES: Without cyanosis. ASSESSMENT: 1. Systemic inflammatory response syndrome with fevers and leukocytosis on admission secondary to #2. 2. Large perianal abscess, status post incision and drainage, repeat MRI with complete resolution 3. Bacteremia, likely secondary to above. 4. History of total knee replacement in 2017. PLAN: Doing better, anticipate dc on oral Levaquin to complete 2 weeks treatment. Continue local wound care per surgical rec-s [facility] staff/pt Problems: URIEL URRUTIA NP Jan 25, 2017 13:26
--- NOTE | 2017-01-25 13:26 | CONS ---
Date/Time of Note Date/Time of Note DATE: 01/25/17 TIME: 13:24 Consult Date/Type/Reason Admit Date/Time Jan 19, 2017 at 00:40 Initial Consult Date 01/20/17 Type of Consultation: ID Objective Vital Signs Date Time Temp Pulse Resp B/P Pulse Ox O2 Delivery O2 Flow Rate FiO2 01/25/17 07:14 98.6 67 18 121/83 100 01/25/17 06:02 2.0 01/21/17 07:45 Nasal Cannula Intake and Output 01/24/17 01/24/17 01/25/17 15:00 23:00 07:00 Intake Total 1800 ml 600 ml Output Total 1800 ml 100 ml Balance 0 ml 500 ml Results/Medications Result Diagram: 01/25/17 0431 01/24/17 0441 Results 24 hrs Laboratory Tests Test 01/25/17 04:30 01/25/17 04:31 Prostate Specific Antigen 4.4 H White Blood Count 10.3 Red Blood Count 5.76 Hemoglobin 14.4 Hematocrit 44.2 Mean Corpuscular Volume 76.7 L Mean Corpuscular Hemoglobin 25.0 L Mean Corpuscular Hemoglobin Concent 32.6 Red Cell Distribution Width 14.5 Platelet Count 342 Mean Platelet Volume 11.5 H Neutrophils % 53.9 Lymphocytes % 33.7 Monocytes % 9.8 Eosinophils % 1.7 Basophils % 0.5 Nucleated Red Blood Cells % 0.0 Neutrophils # 5.6 Lymphocytes # 3.5 H Monocytes # 1.0 H Eosinophils # 0.2 Basophils # 0.1 Nucleated Red Blood Cells # 0.0 Medications Current Medications Ondansetron HCl (Zofran Inj) 4 mg Q6H PRN IV NAUSEA AND/OR VOMITING Last administered on 01/25/17 00:17; Admin Dose 4 MG; Start 01/19/17 at 03:00 Acetaminophen (Tylenol Tab) 650 mg Q6H PRN PO PAIN LEVEL 1-3 OR FEVER; Start 01/19/17 at 03:00 Acetaminophen/ Hydrocodone Bitart ([place] (10/325)) 1 tab Q6H PRN PO PAIN Last administered on 01/24/17 03:41; Admin Dose 1 TAB; Start 01/19/17 at 03:00 Hydrocortisone (Anusol-Hc Supp) 25 mg BID PRN [place] HEMORROID PAIN/ITCHING; Start 01/19/17 at 03:00 Simethicone (Mylicon) 160 mg Q6H PRN PO DISTENSION/GAS/BLOATING Last administered on 01/19/17 05:39; Admin Dose 160 MG; Start 01/19/17 at 04:00 Polyethylene Glycol (Miralax) 17 gm DAILY PO Last administered on 01/24/17 08: 35; Admin Dose 17 GM; Start 01/20/17 at 12:30 Docusate Sodium (Colace) 200 mg BID PO Last administered on 01/24/17 08:36; Admin Dose 200 MG; Start 01/20/17 at 12:30 Senna (Senokot) 2 tab BID PO Last administered on 01/24/17 08:36; Admin Dose 2 TAB; Start 01/20/17 at 12:30 Acetaminophen/ Hydrocodone Bitart ([place] (5/325)) 1 tab Q6H PRN PO PAIN LEVEL 6 -10 Last administered on 01/21/17 21:47; Admin Dose 1 TAB; Start 01/20/17 at 19:00 Acetaminophen (Tylenol Tab) 650 mg Q6H PRN PO PAIN AND OR ELEVATED TEMP; Start 01/20/17 at 19:00 Ibuprofen (Motrin) 600 mg Q6H PRN PO PAIN LEVEL 1-5 Last administered on 07:55; Admin Dose 600 MG; Start 01/20/17 at 19:00 Ondansetron HCl (Zofran Inj) 4 mg Q6H PRN IV NAUSEA AND/OR VOMITING; Start at 19:00 Enoxaparin Sodium (Lovenox) 40 mg DAILY@07 SC Last administered on 01/24/17 06 :12; Admin Dose 40 MG; Start 01/21/17 at 07:00 Phenol (Cepastat Lozenge) 1 lozenge Q1H PRN [place] SORE THROAT Last administered on 01/22/17 04:44; Admin Dose 1 LOZENGE; Start 01/21/17 at 23:30 Hydromorphone HCl (Dilaudid) 3 mg Q3H PRN IV PAIN LEVEL 8-10 Last administered on 01/23/17 11:34; Admin Dose 3 MG; Start 01/22/17 at 15:00 Metoclopramide HCl 10 mg 10 mg Q6 PRN IV NAUSEA; Start 01/25/17 at 00:30 Sodium Chloride (NS) 1,000 ml @ 70 mls/hr [id number] IV Last administered on 01/25t 00:39; Admin Dose 70 MLS/HR; Start 01/25/17 at 00:30 Levofloxacin (Levaquin) 500 mg DAILY@06 PO ; Start 01/25/17 at 18:00 Assessment/Plan Chief Complaint/Hosp Course SUBJECTIVE: The patient is awake, feels much better, s/p BM, no fevers. Micro: Rectal swab growing enterococcal species, Strep, and E. coli. Blood culture growing gram-negative rods. ALLERGIES: PENICILLIN, Flagyl Abx: Levaquin, Zyvox PHYSICAL EXAMINATION: GENERAL: This is a well-developed, well-nourished elderly -[place] man who is awake, in no distress. HEENT: Head atraumatic, normocephalic. Sclerae anicteric. Buccal mucosa dry. NECK: Supple. CHEST: Rise symmetrical. Breath sounds diminished to bases. HEART: S1, S2. ABDOMEN: Soft, bowel tones present. EXTREMITIES: Without cyanosis. ASSESSMENT: 1. Systemic inflammatory response syndrome with fevers and leukocytosis on admission secondary to #2. 2. Large perianal abscess, status post incision and drainage, repeat MRI with complete resolution 3. Bacteremia, likely secondary to above. 4. History of total knee replacement in 2017. PLAN: Doing better, anticipate dc on oral Levaquin to complete 2 weeks treatment. Continue local wound care per surgical rec-s [facility] staff/pt Problems: URIEL URRUTIA NP Jan 25, 2017 13:26
[2017-01-25 13:44] VITALS: BP 143/85; RESP 18
--- NOTE | 2017-01-25 14:30 | PDOCDIS ---
Discharge Instructions CONDITION Patient Condition: Stable HOME CARE INSTRUCTIONS: Special Diet: REGULAR FOLLOW UP/APPOINTMENTS Follow-up Plan Follow up with your regular doctor within 7 days. Please ask your regular doctor to refer you to a thermoforming operator for a routine screening colonoscopy. DIPAK PRITCHETT MD Jan 25, 2017 14:30
--- NOTE | 2017-01-25 14:30 | PDOCDIS ---
Discharge Instructions CONDITION Patient Condition: Stable HOME CARE INSTRUCTIONS: Special Diet: REGULAR FOLLOW UP/APPOINTMENTS Follow-up Plan Follow up with your regular doctor within 7 days. Please ask your regular doctor to refer you to a franchise manager for a routine screening colonoscopy. DIPAK PRITCHETT MD Jan 25, 2017 14:30
--- NOTE | 2017-01-25 14:30 | PDOCDIS ---
Discharge Instructions CONDITION Patient Condition: Stable HOME CARE INSTRUCTIONS: Special Diet: REGULAR FOLLOW UP/APPOINTMENTS Follow-up Plan Follow up with your regular doctor within 7 days. Please ask your regular doctor to refer you to a medical records secretary for a routine screening colonoscopy. DIPAK PRITCHETT MD Jan 25, 2017 14:30
--- NOTE | 2017-01-25 14:36 | DS ---
Date/Time of Note Date/Time of Note DATE: 01/25/17 TIME: 14:31 Discharge Summary Admission/Discharge Info Admit Date/Time Jan 19, 2017 at 00:40 Discharge Date/Time Discharge Diagnosis perirectal abscess with resultant bacteremia, colon polyps Patient Condition: Stable Consults ID, GI, general surgery Procedures 10.28 blood culture EColi 10.29 MRI pelvis FINDINGS: There is a large amount of stool identified in the sigmoid colon and rectum. There is a rim enhancing fluid collection measuring approximately 4.0 x 3.8 x 4.7 cm in the perineal region extending into the anorectal junction with associated luminal narrowing of the lower rectum. Prostate gland, seminal vesicles, and urinary bladder are grossly unremarkable. There is small bilateral hydrocele. There is a small fat-containing left inguinal hernia. There is susceptibility artifact arising from a right hip replacement. IMPRESSION: Large perianal abscess extending to the anorectal junction resulting in circumferential narrowing of the lower rectum with moderate to large stool identified more proximally. Recommend aspiration/drainage under CT guidance. 10.29: EUA, perirectal abscess with 300mL of pus drained 11.2 MRI pelvis FINDINGS: The large perianal abscess seen on prior examination has near completely resolved. The abscess cavity has collapsed with trace residual internal fluid measuring approximately 4 mm in thickness. There is mild hyper enhancement of the collapsed abscess wall. The ischioanal and ischiorectal fossa are clear. The bladder is collapsed with mild concentric wall thickening. Nodular enlargement of the central portion of the prostate gland is observed suggesting the presence of BPH. The seminal vesicles are unremarkable. There is no free pelvic fluid. There is no pelvic sidewall or inguinal lymphadenopathy. The small and large intestines within the pelvis are unremarkable. Right hip arthroplasty hardware is in place. Supporting soft tissues of the pelvis are unremarkable. IMPRESSION: Near complete resolution of a large perianal abscess. The abscess cavity is now collapsed with trace residual internal fluid measuring approximately 4 mm in thickness. Central nodular enlargement prostate gland suggesting sequelae of BPH. Correlate with PSA. PSA 4.4 Hx of Present Illness This is a 61-year-old male with a history of chronic constipation and hemorrhoidal bleed who presented to the ER complaining of rectal pain and constipation. He was seen in ER yesterday for rectal bleed and constipation and was discharged with opioid analgesics without relief of pain. As such patient returned for further evaluation. In the ER, vitals were stable. Labs shows a WBC of 18,000. CT abdomen pelvis showed Suggestion of possible lower rectal wall thickening / mass in this patient with history of rectal bleeding. Small hiatal hernia. Hospital Course 61 yo M admitted for rectal pain/bleeding found to have large perirectal abscess for which he underwent I&D 01.20 complicated by resultant bacteremia. Bacteremia treated with pathogen directed therapy. Pt to complete 10 days of therapy (guidelines advise 7-14 days). Repeat imaging with resolution of abscess. Given pt with a h/o colon polyps, routine outpatient GI eval is indicated Pt to f/u with PCP to ensure wound is healing HH wound care referral was placed Home Meds Active Scripts Docusate Sodium* (Colace*) 100 Mg Capsule, 100 MG PO TID, #30 CAP Prov:MADI BISHOP MD 01/17/17 Hydrocortisone Acetate (Anusol-Hc) 25 Mg Supp.rect, 1 SUPP [place] BID Y for HEMORROID PAIN/ITCHING, #12 SUPP.RECT Prov:MADI BISHOP MD 01/17/17 Hydrocodone/Acetaminophen ([place] 10-325 Tablet) 1 Each Tablet, 1 TAB PO Q6H Y for PAIN, #12 TAB Prov:MADI BISHOP MD 01/17/17 Discontinued Reported Medications Hard Fat/Phenylephrine* (Anusol*) 1 Supp Supp, 1 SUPP NH BID for HEMORROID PAIN/ ITCHING, SUPP 01/19/17 Hydrocodone/Acetaminophen ([place] 10-325 Tablet) 1 Each Tablet, 1 EACH PO Q6H Y for PRN, TAB 01/19/17 Docusate Sodium* (Docusate Sodium*) 100 Mg Capsule, 100 MG PO TID, #60 CAP 01/19/17 [None] No Conflict Check 07/13/10 Discontinued Scripts Sennosides* (Senokot*) 8.6 Mg Tablet, 1 TAB PO BID, #30 TAB Prov:MADI BISHOP MD 01/17/17 Follow-up Plan Follow up with your regular doctor within 7 days. Please ask your regular doctor to refer you to a curber for a routine screening colonoscopy. Also please ask your regular doctor to refer you to a urologist as your PSA/prostate blood test was slightly elevated Primary Care Provider Not On Staff Doctor Time spent on discharge: > 30 minutes Pending Labs Laboratory Tests Test 01/25/17 04:30 11/3/17 04:31 Prostate Specific Antigen 4.4ng/ml (0.0-4.0) White Blood Count 10.310^3/ul (4.8-10.8) Red Blood Count 5.7610^6/ul (4.70-6.10) Hemoglobin 14.4g/dl (14.0-18.0) Hematocrit 44.2% (42.0-52.0) Mean Corpuscular Volume 76.7fl (82.0-101.0) Mean Corpuscular Hemoglobin 25.0pg (29.0-33.0) Mean Corpuscular Hemoglobin Concent 32.6g/dl (32.0-37.0) Red Cell Distribution Width 14.5% (11.5-14.5) Platelet Count 19727^3/UL (140-415) Mean Platelet Volume 11.5fl (7.4-10.4) Neutrophils % 53.9% (39.0-77.0) Lymphocytes % 33.7% (15.0-51.0) Monocytes % 9.8% (0.0-11.0) Eosinophils % 1.7% (0.0-7.0) Basophils % 0.5% (0.0-2.0) Nucleated Red Blood Cells % 0.0/100WBC (0.0-0.0) Neutrophils # 5.610^3/ul (1.6-7.5) Lymphocytes # 3.510^3/ul (0.8-2.9) Monocytes # 1.010^3/ul (0.3-0.9) Eosinophils # 0.210^3/ul (0.0-0.5) Basophils # 0.110^3/ul (0.0-0.1) Nucleated Red Blood Cells # 0.010^3/ul (0.0-0.0) Microbiology Date/Time Source Procedure Growth Status 01/25/17 01:30 Feces Clostridium difficile Toxin Assay - Final Complete DIPAK PRITCHETT MD Jan 25, 2017 14:36
--- NOTE | 2017-01-25 14:36 | DS ---
Date/Time of Note Date/Time of Note DATE: 01/25/17 TIME: 14:31 Discharge Summary Admission/Discharge Info Admit Date/Time Jan 19, 2017 at 00:40 Discharge Date/Time Discharge Diagnosis perirectal abscess with resultant bacteremia, colon polyps Patient Condition: Stable Consults ID, GI, general surgery Procedures 10.28 blood culture EColi 10.29 MRI pelvis FINDINGS: There is a large amount of stool identified in the sigmoid colon and rectum. There is a rim enhancing fluid collection measuring approximately 4.0 x 3.8 x 4.7 cm in the perineal region extending into the anorectal junction with associated luminal narrowing of the lower rectum. Prostate gland, seminal vesicles, and urinary bladder are grossly unremarkable. There is small bilateral hydrocele. There is a small fat-containing left inguinal hernia. There is susceptibility artifact arising from a right hip replacement. IMPRESSION: Large perianal abscess extending to the anorectal junction resulting in circumferential narrowing of the lower rectum with moderate to large stool identified more proximally. Recommend aspiration/drainage under CT guidance. 10.29: EUA, perirectal abscess with 300mL of pus drained 11.2 MRI pelvis FINDINGS: The large perianal abscess seen on prior examination has near completely resolved. The abscess cavity has collapsed with trace residual internal fluid measuring approximately 4 mm in thickness. There is mild hyper enhancement of the collapsed abscess wall. The ischioanal and ischiorectal fossa are clear. The bladder is collapsed with mild concentric wall thickening. Nodular enlargement of the central portion of the prostate gland is observed suggesting the presence of BPH. The seminal vesicles are unremarkable. There is no free pelvic fluid. There is no pelvic sidewall or inguinal lymphadenopathy. The small and large intestines within the pelvis are unremarkable. Right hip arthroplasty hardware is in place. Supporting soft tissues of the pelvis are unremarkable. IMPRESSION: Near complete resolution of a large perianal abscess. The abscess cavity is now collapsed with trace residual internal fluid measuring approximately 4 mm in thickness. Central nodular enlargement prostate gland suggesting sequelae of BPH. Correlate with PSA. PSA 4.4 Hx of Present Illness This is a 61-year-old male with a history of chronic constipation and hemorrhoidal bleed who presented to the ER complaining of rectal pain and constipation. He was seen in ER yesterday for rectal bleed and constipation and was discharged with opioid analgesics without relief of pain. As such patient returned for further evaluation. In the ER, vitals were stable. Labs shows a WBC of 18,000. CT abdomen pelvis showed Suggestion of possible lower rectal wall thickening / mass in this patient with history of rectal bleeding. Small hiatal hernia. Hospital Course 61 yo M admitted for rectal pain/bleeding found to have large perirectal abscess for which he underwent I&D 01.20 complicated by resultant bacteremia. Bacteremia treated with pathogen directed therapy. Pt to complete 10 days of therapy (guidelines advise 7-14 days). Repeat imaging with resolution of abscess. Given pt with a h/o colon polyps, routine outpatient GI eval is indicated Pt to f/u with PCP to ensure wound is healing HH wound care referral was placed Home Meds Active Scripts Docusate Sodium* (Colace*) 100 Mg Capsule, 100 MG PO TID, #30 CAP Prov:MADI BISHOP MD 01/17/17 Hydrocortisone Acetate (Anusol-Hc) 25 Mg Supp.rect, 1 SUPP IN BID Y for HEMORROID PAIN/ITCHING, #12 SUPP.RECT Prov:MADI BISHOP MD 01/17/17 Hydrocodone/Acetaminophen ([place] 10-325 Tablet) 1 Each Tablet, 1 TAB PO Q6H Y for PAIN, #12 TAB Prov:MADI BISHOP MD 01/17/17 Discontinued Reported Medications Hard Fat/Phenylephrine* (Anusol*) 1 Supp Supp, 1 SUPP IN BID for HEMORROID PAIN/ ITCHING, SUPP 01/19/17 Hydrocodone/Acetaminophen ([place] 10-325 Tablet) 1 Each Tablet, 1 EACH PO Q6H Y for PRN, TAB 01/19/17 Docusate Sodium* (Docusate Sodium*) 100 Mg Capsule, 100 MG PO TID, #60 CAP 01/19/17 [None] No Conflict Check 07/13/10 Discontinued Scripts Sennosides* (Senokot*) 8.6 Mg Tablet, 1 TAB PO BID, #30 TAB Prov:MADI BISHOP MD 01/17/17 Follow-up Plan Follow up with your regular doctor within 7 days. Please ask your regular doctor to refer you to a material preparation worker for a routine screening colonoscopy. Also please ask your regular doctor to refer you to a urologist as your PSA/prostate blood test was slightly elevated Primary Care Provider Not On Staff Doctor Time spent on discharge: > 30 minutes Pending Labs Laboratory Tests Test 01/25/17 04:30 11/3/17 04:31 Prostate Specific Antigen 4.4ng/ml (0.0-4.0) White Blood Count 10.310^3/ul (4.8-10.8) Red Blood Count 5.7610^6/ul (4.70-6.10) Hemoglobin 14.4g/dl (14.0-18.0) Hematocrit 44.2% (42.0-52.0) Mean Corpuscular Volume 76.7fl (82.0-101.0) Mean Corpuscular Hemoglobin 25.0pg (29.0-33.0) Mean Corpuscular Hemoglobin Concent 32.6g/dl (32.0-37.0) Red Cell Distribution Width 14.5% (11.5-14.5) Platelet Count 58700^3/UL (140-415) Mean Platelet Volume 11.5fl (7.4-10.4) Neutrophils % 53.9% (39.0-77.0) Lymphocytes % 33.7% (15.0-51.0) Monocytes % 9.8% (0.0-11.0) Eosinophils % 1.7% (0.0-7.0) Basophils % 0.5% (0.0-2.0) Nucleated Red Blood Cells % 0.0/100WBC (0.0-0.0) Neutrophils # 5.610^3/ul (1.6-7.5) Lymphocytes # 3.510^3/ul (0.8-2.9) Monocytes # 1.010^3/ul (0.3-0.9) Eosinophils # 0.210^3/ul (0.0-0.5) Basophils # 0.110^3/ul (0.0-0.1) Nucleated Red Blood Cells # 0.010^3/ul (0.0-0.0) Microbiology Date/Time Source Procedure Growth Status 01/25/17 01:30 Feces Clostridium difficile Toxin Assay - Final Complete DIPAK PRITCHETT MD Jan 25, 2017 14:36
--- NOTE | 2017-01-25 14:36 | DS ---
Date/Time of Note Date/Time of Note DATE: 01/25/17 TIME: 14:31 Discharge Summary Admission/Discharge Info Admit Date/Time Jan 19, 2017 at 00:40 Discharge Date/Time Discharge Diagnosis perirectal abscess with resultant bacteremia, colon polyps Patient Condition: Stable Consults ID, GI, general surgery Procedures 10.28 blood culture EColi 10.29 MRI pelvis FINDINGS: There is a large amount of stool identified in the sigmoid colon and rectum. There is a rim enhancing fluid collection measuring approximately 4.0 x 3.8 x 4.7 cm in the perineal region extending into the anorectal junction with associated luminal narrowing of the lower rectum. Prostate gland, seminal vesicles, and urinary bladder are grossly unremarkable. There is small bilateral hydrocele. There is a small fat-containing left inguinal hernia. There is susceptibility artifact arising from a right hip replacement. IMPRESSION: Large perianal abscess extending to the anorectal junction resulting in circumferential narrowing of the lower rectum with moderate to large stool identified more proximally. Recommend aspiration/drainage under CT guidance. 10.29: EUA, perirectal abscess with 300mL of pus drained 11.2 MRI pelvis FINDINGS: The large perianal abscess seen on prior examination has near completely resolved. The abscess cavity has collapsed with trace residual internal fluid measuring approximately 4 mm in thickness. There is mild hyper enhancement of the collapsed abscess wall. The ischioanal and ischiorectal fossa are clear. The bladder is collapsed with mild concentric wall thickening. Nodular enlargement of the central portion of the prostate gland is observed suggesting the presence of BPH. The seminal vesicles are unremarkable. There is no free pelvic fluid. There is no pelvic sidewall or inguinal lymphadenopathy. The small and large intestines within the pelvis are unremarkable. Right hip arthroplasty hardware is in place. Supporting soft tissues of the pelvis are unremarkable. IMPRESSION: Near complete resolution of a large perianal abscess. The abscess cavity is now collapsed with trace residual internal fluid measuring approximately 4 mm in thickness. Central nodular enlargement prostate gland suggesting sequelae of BPH. Correlate with PSA. PSA 4.4 Hx of Present Illness This is a 61-year-old male with a history of chronic constipation and hemorrhoidal bleed who presented to the ER complaining of rectal pain and constipation. He was seen in ER yesterday for rectal bleed and constipation and was discharged with opioid analgesics without relief of pain. As such patient returned for further evaluation. In the ER, vitals were stable. Labs shows a WBC of 18,000. CT abdomen pelvis showed Suggestion of possible lower rectal wall thickening / mass in this patient with history of rectal bleeding. Small hiatal hernia. Hospital Course 61 yo M admitted for rectal pain/bleeding found to have large perirectal abscess for which he underwent I&D 01.20 complicated by resultant bacteremia. Bacteremia treated with pathogen directed therapy. Pt to complete 10 days of therapy (guidelines advise 7-14 days). Repeat imaging with resolution of abscess. Given pt with a h/o colon polyps, routine outpatient GI eval is indicated Pt to f/u with PCP to ensure wound is healing HH wound care referral was placed Home Meds Active Scripts Docusate Sodium* (Colace*) 100 Mg Capsule, 100 MG PO TID, #30 CAP Prov:MADI BISHOP MD 01/17/17 Hydrocortisone Acetate (Anusol-Hc) 25 Mg Supp.rect, 1 SUPP WI BID Y for HEMORROID PAIN/ITCHING, #12 SUPP.RECT Prov:MADI BISHOP MD 01/17/17 Hydrocodone/Acetaminophen ([place] 10-325 Tablet) 1 Each Tablet, 1 TAB PO Q6H Y for PAIN, #12 TAB Prov:MADI BISHOP MD 01/17/17 Discontinued Reported Medications Hard Fat/Phenylephrine* (Anusol*) 1 Supp Supp, 1 SUPP WI BID for HEMORROID PAIN/ ITCHING, SUPP 01/19/17 Hydrocodone/Acetaminophen ([place] 10-325 Tablet) 1 Each Tablet, 1 EACH PO Q6H Y for PRN, TAB 01/19/17 Docusate Sodium* (Docusate Sodium*) 100 Mg Capsule, 100 MG PO TID, #60 CAP 01/19/17 [None] No Conflict Check 07/13/10 Discontinued Scripts Sennosides* (Senokot*) 8.6 Mg Tablet, 1 TAB PO BID, #30 TAB Prov:MADI BISHOP MD 01/17/17 Follow-up Plan Follow up with your regular doctor within 7 days. Please ask your regular doctor to refer you to a chemical engineer for a routine screening colonoscopy. Also please ask your regular doctor to refer you to a urologist as your PSA/prostate blood test was slightly elevated Primary Care Provider Not On Staff Doctor Time spent on discharge: > 30 minutes Pending Labs Laboratory Tests Test 01/25/17 04:30 11/3/17 04:31 Prostate Specific Antigen 4.4ng/ml (0.0-4.0) White Blood Count 10.310^3/ul (4.8-10.8) Red Blood Count 5.7610^6/ul (4.70-6.10) Hemoglobin 14.4g/dl (14.0-18.0) Hematocrit 44.2% (42.0-52.0) Mean Corpuscular Volume 76.7fl (82.0-101.0) Mean Corpuscular Hemoglobin 25.0pg (29.0-33.0) Mean Corpuscular Hemoglobin Concent 32.6g/dl (32.0-37.0) Red Cell Distribution Width 14.5% (11.5-14.5) Platelet Count 33304^3/UL (140-415) Mean Platelet Volume 11.5fl (7.4-10.4) Neutrophils % 53.9% (39.0-77.0) Lymphocytes % 33.7% (15.0-51.0) Monocytes % 9.8% (0.0-11.0) Eosinophils % 1.7% (0.0-7.0) Basophils % 0.5% (0.0-2.0) Nucleated Red Blood Cells % 0.0/100WBC (0.0-0.0) Neutrophils # 5.610^3/ul (1.6-7.5) Lymphocytes # 3.510^3/ul (0.8-2.9) Monocytes # 1.010^3/ul (0.3-0.9) Eosinophils # 0.210^3/ul (0.0-0.5) Basophils # 0.110^3/ul (0.0-0.1) Nucleated Red Blood Cells # 0.010^3/ul (0.0-0.0) Microbiology Date/Time Source Procedure Growth Status 01/25/17 01:30 Feces Clostridium difficile Toxin Assay - Final Complete DIPAK PRITCHETT MD Jan 25, 2017 14:36
[2017-01-25] MEDS ORDERED: LEVO500T72 PO (14:45)
[2017-01-25] MEDS ORDERED: POTASSIUM CHLORIDE (SR) 20 MEQ TAB PO STA (14:54)
[2017-01-25] MEDS ORDERED: LEVOFLOXACIN 500 MG TAB PO SCH ×2 (15:00→18:00)
== END 2017-01-25 17:00 | disposition home health service (06) | DRG 345 ==
LOC: E/R 21:14 → MS1 01-19 00:40
PROVIDERS: ADMIT Internal Medicine; ATTEND Internal Medicine
PROC: 0D9P0ZX Drainage of Rectum, Open Approach, Diagnostic (ICD-10-PCS; principal; 2017-01-20 19:00)
DX: K61.1 Rectal abscess (principal); R78.81 Bacteremia; R65.10 Systemic inflammatory response syndrome (SIRS) of non-infectious origin without acute organ dysfunction; K62.5 Hemorrhage of anus and rectum; K62.89 Other specified diseases of anus and rectum; K59.01 Slow transit constipation; E86.0 Dehydration; K64.9 Unspecified hemorrhoids; Z96.641 Presence of right artificial hip joint; K44.9 Diaphragmatic hernia without obstruction or gangrene; Z86.010 Personal history of colon polyps
CPT/HCPCS: 36415; 72196; 72197; 74000; 74176; 80048; 80053; 82962; 83690; 83735; 84100; 84153; 84154; 84484; 85025; 85610; 85651; 86140; 86592; 86703; 87040; 87045; 87070; 87075; 87086; 87102; 87591; 93005; 96374; 96375; J0744; J1170; J1200; J1650; J1885; J1956; J2175; J2270; J2405; J2543; J2930; J3010; J3480; J7030